=== PATIENT | female | born 1940 | race Caucasian/White ===

== ENCOUNTER 2020-02-18 20:23 | Inpatient (IN) | payer MEDICARE, BC ==
[~2020-02-18] VITALS: Ht 167.6 cm; Wt 117.9 kg
[~2020-02-18 20:23] MED LIST: ASPI81CH PO; Aspir 8181 MG PO; FURO20 PO; HYDRA25 PO; LOSA50 PO; METO50 PO; PRAV20 PO; PRAZ1 PO
[2020-02-18] MEDS ORDERED: HYDRA25 PO (20:33)
[2020-02-18] MEDS ORDERED: LOSA50 PO (20:34)
[2020-02-18] MEDS ORDERED: XARELTO20 M1 PO (20:35)
[2020-02-18] MEDS ORDERED: METOPROLOL TART75 MG PO (20:36)
[2020-02-18] MEDS ORDERED: LOVASTATIN40 MG PO (20:37)
[2020-02-18] MEDS ORDERED: Cymbalta20 MG PO (20:38)
[2020-02-18] MEDS ORDERED: TRESIBA FL100 UNIT/2 SC (20:38)
[2020-02-18] MEDS ORDERED: FEBUXOSTAT40 MG PO (20:39)
[2020-02-18 22:02] LABS: BASOPHILS ABSOLUTE AUTO 0.04 K/mm3 (0.00-0.23); BASOPHILS PERCENT AUTO 0 % (0-2); EOSINOPHILS ABSOLUTE AUTO 0.03 K/mm3 (0.00-0.68); EOSINOPHILS PERCENT AUTO 0 % (0-6); IMMATURE GRAN ABSOLUTE AUTO 0.04 K/mm3 (0.00-0.10); IMMATURE GRAN PERCENT AUTO 0 % (0-1); LYMPHOCYTES PERCENT AUTO 14 % (21-46); MONOCYTES ABSOLUTE AUTO 0.67 K/mm3 (0.16-1.47); MONOCYTES PERCENT AUTO 5 % (4-13); Mean Corpuscular HGB 28.8 pg (26.0-34.0); Mean Corpuscular HGB Conc 32.5 g/dL (31.5-36.5); Mean Corpuscular Volume 89 fL (80-100); Mean Platelet Volume 9.2 fL (9.1-12.4); NEUTROPHILS ABSOLUTE AUTO 10.51 K/mm3 (1.96-9.15); NEUTROPHILS PERCENT AUTO 80 % (41-73); Platelet Count 207 K/mm3 (150-400); RDW Standard Deviation 42.5 fL (35.1-46.3); Red Blood Cell Count 4.51 M/mm3 (3.80-5.20); White Blood Cell Count 13.19 K/mm3 (4.00-11.30)
[2020-02-18 22:18] LABS: Albumin, Blood 3.2 g/dL (3.4-5.0); Albumin/Globulin Ratio 1.1 (0.8-1.8); Bilirubin, Total 0.4 mg/dL (0.1-1.0); Bun/Creatinine Ratio 22.4 (12.0-20.0); Calcium, Blood 9.8 mg/dL (8.5-10.1); Creatinine, Blood 1.07 mg/dL (0.40-1.00); Globulin, Blood 2.9 g/dL (2.2-4.0); International Normalized Ratio 1.47; Potassium, Blood 4.4 mmol/L (3.5-5.5); Prothrombin Time Results 15.4 Sec (9.7-11.5); Total Protein, Blood 6.1 g/dL (6.4-8.2)
[2020-02-19 01:13] LABS: Hematocrit 37.1 % (33.0-51.0); Hemoglobin 12.1 g/dL (11.5-16.0)
--- NOTE | 2020-02-19 04:54 | NUR ---
PATIENT ARRIVED AT 0155, PATIENT ABLE TO STAND AND PIVOT TO THE BSC TO VOID. 8/10 PAIN IN HER RIGHT KNEE. PATIENT ASSISTED BACK TO BED. ORIENTED TO HER ROOM AND CALL LIGHT. RT KNEE WITH SEVERAL LARGE WATER BLISTERS OVER THE BRUISED, SWOLLEN MEDIAL KNEE. PERIPHERAL PULSES ARE PRESENT, RT FOOT WITH <3 SECOND CAP REFILL. CONTINUOUS BIOX AND CPAP SET UP BY RESP CARE.
--- NOTE | 2020-02-19 05:13 | NUR ---
PATIENT STATED THAT HER PAIN IS NOT ABATING WITH THE FENTANYL. PAIN IS 10/10. DR RANKIN NOTIFIED AND WILL CHANGE TO KATIE.
[2020-02-19 07:24] LABS: BASOPHILS ABSOLUTE AUTO 0.03 K/mm3 (0.00-0.23); BASOPHILS PERCENT AUTO 0 % (0-2); EOSINOPHILS PERCENT AUTO 0 % (0-6); Hematocrit 34.9 % (33.0-51.0); Hemoglobin 11.5 g/dL (11.5-16.0); IMMATURE GRAN ABSOLUTE AUTO 0.04 K/mm3 (0.00-0.10); IMMATURE GRAN PERCENT AUTO 0 % (0-1); LYMPHOCYTES PERCENT AUTO 22 % (21-46); MONOCYTES ABSOLUTE AUTO 0.57 K/mm3 (0.16-1.47); MONOCYTES PERCENT AUTO 4 % (4-13); Mean Corpuscular HGB 29.5 pg (26.0-34.0); Mean Corpuscular Volume 90 fL (80-100); Mean Platelet Volume 9.5 fL (9.1-12.4); NEUTROPHILS ABSOLUTE AUTO 9.79 K/mm3 (1.96-9.15); NEUTROPHILS PERCENT AUTO 73 % (41-73); Platelet Count 217 K/mm3 (150-400); RDW Coefficient Variation 13.2 % (11.7-14.2); RDW Standard Deviation 43.4 fL (35.1-46.3); White Blood Cell Count 13.43 K/mm3 (4.00-11.30)
[2020-02-19 07:42] LABS: Albumin, Blood 2.9 g/dL (3.4-5.0); Bilirubin, Total 0.3 mg/dL (0.1-1.0); Bun/Creatinine Ratio 25.4 (12.0-20.0); Calcium, Blood 9.4 mg/dL (8.5-10.1); Creatinine, Blood 0.99 mg/dL (0.40-1.00); Globulin, Blood 2.9 g/dL (2.2-4.0); Potassium, Blood 4.7 mmol/L (3.5-5.5); Total Protein, Blood 5.8 g/dL (6.4-8.2)
[2020-02-19 13:24] LABS: Hemoglobin 11.7 g/dL (11.5-16.0)
--- NOTE | 2020-02-19 15:30 | NUR ---
PT VASOVAGAL RESPONSE WHILE ON BSC, BECAME DIAPHORETIC AND BEGAN TO CLOSE EYES PT WOULD OPEN EYES AT REQUEST AND ANSWER ORIENTATION QUESTIONS APPROPRIATELY. VSS W/ BP 102/71, PULSE 76, OXYGEN 93, NARCAN 0.2 MG GIVEN, EKG AFIB, CBG 335. BIOX ON. HOSPITALIST AWARE.
--- NOTE | 2020-02-19 17:02 | NUR ---
SHIFT SUMMARY PT A&OX4, VSS, RA, BIOX ON. ORTHO CONSULT; WBAT, RLE BLISTERS ARE DRESSED IN GAUZE/RON WRAP, ELEVATED ON PILLOW. AGUSTIN PO, ADA DIET. DENIES N&V. CBGS AC/HS REQUIRES COVERAGE. PT DID HAVE A VASOVAGAL EPISODE ON BSC AT 1530 (SEE NOTE). WILL REPORT TO ONCYAMILE TRONCOSO RN.
[2020-02-19 19:50] LABS: Hematocrit 33.7 % (33.0-51.0); Hemoglobin 10.8 g/dL (11.5-16.0)
[2020-02-20 01:08] LABS: Hematocrit 32.2 % (33.0-51.0); Hemoglobin 10.2 g/dL (11.5-16.0)
--- NOTE | 2020-02-20 05:54 | NUR ---
SHIFT SUMMARY: RALPH IS A&OX4. VSS, NO ACUTE EVENTS OVERNIGHT, CONTINUOUS PULSE OX IN PLACE. TOLERATING PO INTAKE WELL. SHE USED HER CPAP FOR THE MAJORITY OF THE SHIFT. SHE WAS FOUND TO HAVE A REDDENED AREA IN HER LEFT GROIN FOR WHICH SHE STATED SHE USES NEOSPORIN AT HOME WITH GOOD RESULTS. TRIPLE ANTIBIOTIC OINTMENT APPLIED TO AREA. RLE WITH DRESSING AND RON WRAP C/D&I. SHE IS ABLE TO MAKE HER NEEDS KNOWN. SHE IS LYING IN BED WITH HER CALL LIGHT IN REACH. WILL REPORT TO DAY SHIFT RN.
--- NOTE | 2020-02-20 17:03 | NUR ---
SHIFT SUMMARY PT A&OX4, VSS, RA, CBGS REQ COV, BIOX ON, TCDB EDU & ENC, PHYSICAL THERAPY EXERCISES EDU & ENC ALONG WITH HAVING PT STANDING IN FRONT OF CHAIR TO STRETCH AND PRACTICE SAFE REVIEW OF STANDING UP AND SITTING DOWN IN A CHAIR; STAND PIVOT W/FWW & GB TO CHAIR/BSC/BED. RLE BLISTERS RUPTURED, NEW DRESSING W/XEROFORM/GAUZE/ABD/RON WRAP APPLIED. DENIES PAIN - NO NARCS GIVEN THIS SHIFT. DENIES N&V, AGUSTIN PO ADA DIET. WILL REPORT TO ONCOMING NOC RN.
[2020-02-20] MEDS ORDERED: Lopressor 50 mg50 MG PO (18:19)
--- NOTE | 2020-02-20 20:36 | NUR ---
Patient up in chair, gait belt on and ready to return to the bed. used one person assist and a FWW. Patient attempted to get out of chair twice, and on the third try was standing weakly. After patient got the the bed she asked for the BSC and she made the few steps without significant weakness. Voided and had a soft stool. 2 staff members helped to clean and stabilize patient after using the bsc. The patient began to lean to the right side, max RN asked the patient what was happening and she said that she was tired. i tried to get the patient to take steps to position herself to sit on the side of the bed. patient was unable to do so and due to her trying to sit without any thing under her the patient was helped to the bed on her side. She was awake the entire time and stated that she was just so tired. patient repositioned in bed and fully cleaned, noted that patient has beefy red panus and groin. Dr Sigala notified and nystatin powder will be started tonight. call light in reach.
--- NOTE | 2020-02-21 05:35 | NUR ---
PATIENT WOKE THIS MORNING AND FOUND THAT SHE HAD BEEN INCONTINENT OF URINE AND STOOL. PATIENT STATED THAT SHE DID NOT CALL US BECAUSE SHE DID NOT WANT TO WAKE US, i ASSURED HER THAT WE DO NOT SLEEP, BUT ARE AWAKE ALL NIGHT. RIGHT LEG DRESSING REMOVED. LEG CLEANED WITH WARM WATER AND SOAP SOAKED CLOTHS. XEROFORM DRESSING OVER THE RUPTURED BLISTERS, 4x4'S AND RON WRAP. PATIENT TOLERATED DRESSING CHANGE WELL. REPOSITIONED IN BED, CALL LIGHT IN REACH.
--- NOTE | 2020-02-21 09:59 | NUR ---
LOW BP AT 0857 PT EXPERIENCED LOW BLOOD PRESSURE AFTER HER PHYSICAL THERAPY SESSION. PT DENIES CHEST PAIN/ PRESSURE, DIZZINESS, NAUSEA AND VOMITING. PT REPORTS SOB.
[2020-02-21 10:17] LABS: Hematocrit 30.2 % (33.0-51.0)
--- NOTE | 2020-02-21 18:06 | NUR ---
SHIFT SUMMARY PT A0X4. SHE MET PHYSICAL THERAPY TODAY BUT HAS NOT BEEN CLEARED DUE TO ORTHOSTATIC HYPOTENSIVE AND NEAR SYNCOPAL EPISODE IN THE LAST 2 DAYS. PT TOLERATING MEALS WELL WITH NO NAUSEA AND NO VOMITING. CGB OF 210, 274, AND 194. SHE REPORTS MINIMAL PAIN /. SHE ONLY HAD 1 ELIE THIS MORNING AFTER PHYS THERAPY SESSION. PT ALSO DENIES CHEST PAIN/PRESSURE, SOB, NUMBNESS, TINGLING SENSATION AND DIZZINESS. PLAN TO DC TOMORROW IF CLEARED BY PT. PT JADIEL NOTED LACK OF CAREGIVER UNTIL 02/21 VS ADVISING SNF STAY, OR HOME HEALTH PER CARE MANAGEMENT. HOME MEDS ARE RECONCILED BY JOHANN MCPHERSON.
[2020-02-22 04:50] LABS: Hematocrit 29.3 % (33.0-51.0); Hemoglobin 9.7 g/dL (11.5-16.0); Mean Corpuscular HGB 29.6 pg (26.0-34.0); Mean Corpuscular HGB Conc 33.1 g/dL (31.5-36.5); Mean Corpuscular Volume 89 fL (80-100); RDW Coefficient Variation 13.4 % (11.7-14.2); RDW Standard Deviation 43.8 fL (35.1-46.3); Red Blood Cell Count 3.28 M/mm3 (3.80-5.20); White Blood Cell Count 12.53 K/mm3 (4.00-11.30)
[2020-02-22 04:52] LABS: Platelet Count 183 K/mm3 (150-400)
[2020-02-22 05:05] LABS: Bun/Creatinine Ratio 29.8 (12.0-20.0); Calcium, Blood 9.2 mg/dL (8.5-10.1); Creatinine, Blood 1.51 mg/dL (0.40-1.00); Potassium, Blood 4.1 mmol/L (3.5-5.5)
--- NOTE | 2020-02-22 05:37 | NUR ---
SHIFT SUMMARY LYING IN SEMI FOWLERS WITH EYES OPEN WHILE WATCHING TV. HAS DENIED PAIN EXCEPT WITH MOVEMENT OF RIGHT KNEE. RLE WITH LARGE CONTUSION ORIGINATING FROM THE KNEE, AND SPREADING IN BOTH DIRECTIONS. DENIES N/T TO BLE. IMPROVEMENT OF CIRCULATION NOTED TO FINGERS AND TOES, INCREASED WARMTH TO EACH. HAD 2 LARGE INCONTINENT URINATIONS. LINENS AND PARTIAL BATH COMPLETED, TOLERATED WELL. DENIES PAIN, DISCOMFORT, OR FURTHER NEEDS. SAFETY MEASURES IN PLACE. WILL CONTINUE TO MONITOR AND GIVE HAND OFF TO ONCOMING SHIFT USING SBAR.
[2020-02-22] MEDS ORDERED: OXYC5 PO (16:31)
[2020-02-22] MEDS ORDERED: PRAZ1 PO (16:31)
[2020-02-22] MEDS ORDERED: METO25 PO (16:59)
--- NOTE | 2020-02-22 18:09 | NUR ---
SHIFT SUMMARY PT DISCHARGED AT 1730 VIA W/C WITH AVINASH DAMIAN. PT ALERT AND ORIENTED X 4. PT PAIN ON RIGHT KNEE IS WELL TOLERATED WITHOUT PAIN MEDICATION. 3/10 PAIN LEVEL. PT DENIES NUMBNESS, DENIES TINGLING SENSATION, AND NO DIZZINESS. SHE ALSO DENIES CHEST PAIN/PRESSURE AND SOB. 2 BLISTER PRESENT ON RIGHT KNEE WITH BRUISING ABOVE KNEE AND DOWN TO R CALF. DRESSING CHANGED WITH ABD PAD AND NEW RON WRAPPED. EXTRA DRESSING WAS SENT HOME FOR PT TO USE. PT HAS BEEN PASSING FLATUS. SHE HAD A SMALL BOWEL MOVEMENT BEFORE DISCHARGE AND URINE OUTPUT IS ADEQUATE. PT TOLERATE PO INTAKE WELL DENIES NAUSEA AND NO VOMITING. VSS. NO SYNCOPAL EPISODES REPORTED TODAY. DISCHARGE INSTRUCTIONS WERE ADDRESSED WITH HER UPDATED MEDICATION LIST. ONE HAND CARRY SCRIPT FOR PAIN WAS GIVEN TO PT UPON DISCHARGED.
== END 2020-02-22 17:43 | disposition home or self-care (01) | DRG 605 ==
LOC: ER 20:23 → SURS 02-19 01:25
PROVIDERS: Emergency Medicine; Internal Medicine; ADMIT Internal Medicine
DX: S80.01XA Contusion of right knee, initial encounter (principal); Z68.41 Body mass index [BMI] 40.0-44.9, adult; E11.65 Type 2 diabetes mellitus with hyperglycemia; I10 Essential (primary) hypertension; I48.91 Unspecified atrial fibrillation; E66.01 Morbid (severe) obesity due to excess calories; Z79.82 Long term (current) use of aspirin; W01.10XA Fall on same level from slipping, tripping and stumbling with subsequent striking against unspecified object, initial encounter; Y92.000 Kitchen of unspecified non-institutional (private) residence as the place of occurrence of the external cause; M17.11 Unilateral primary osteoarthritis, right knee; R42 Dizziness and giddiness; R55 Syncope and collapse; Z79.4 Long term (current) use of insulin
CPT/HCPCS: 36415; 73701; 80048; 80053; 82947; 85014; 85018; 85025; 85027; 85610; 85730; 93005; 93010; 94660; 94762; 96361; 96374-59; 96375; 96376; 97110; 97116; 97162; 99285-25; A9270-GY; G0008; G0378; J1170; J2310; J3010; J7030; Q2038; Q9967

== ENCOUNTER → 2020-03-01 | Outpatient (CLI) | payer MEDICARE, BC ==
[~2020-03-01] MED LIST changes: +BYDUREON B2 MG/0.81 SC; +CALCIUM 600 +1 EA11 PO; +Cymbalta20 MG PO; +FEBUXOSTAT40 MG PO; +IBUP400 PO; +LOVASTATIN40 MG PO; +Lopressor 50 mg50 MG PO; +METO25 PO; +METO25ER PO; +METOPROLOL TART75 MG PO; +OXYC5 PO; +TRESIBA FL100 UNIT/2 SC; +VITAMIN D325 MC3 PO; +XARELTO20 M1 PO
== END | disposition home or self-care (01) ==
LOC: LAB SHORT 15:21 → LAB 15:21
DX: S81.801D Unspecified open wound, right lower leg, subsequent encounter (principal)
CPT/HCPCS: 87070; 87075; 87077; 87147; 87186; 87205

== ENCOUNTER 2020-03-10 10:19 | Emergency (ER) | payer MEDICARE, BC ==
[~2020-03-10] VITALS: Ht 167.6 cm; Wt 117.9 kg
[~2020-03-10 10:19] MED LIST changes: -BYDUREON B2 MG/0.81 SC; -CALCIUM 600 +1 EA11 PO; -IBUP400 PO; -METO25ER PO; -VITAMIN D325 MC3 PO
[2020-03-10 11:28] LABS: BASOPHILS ABSOLUTE AUTO 0.04 K/mm3 (0.00-0.23); BASOPHILS PERCENT AUTO 0 % (0-2); EOSINOPHILS ABSOLUTE AUTO 0.09 K/mm3 (0.00-0.68); EOSINOPHILS PERCENT AUTO 1 % (0-6); Hematocrit 36.3 % (33.0-51.0); IMMATURE GRAN ABSOLUTE AUTO 0.03 K/mm3 (0.00-0.10); IMMATURE GRAN PERCENT AUTO 0 % (0-1); LYMPHOCYTES PERCENT AUTO 21 % (21-46); MONOCYTES ABSOLUTE AUTO 0.45 K/mm3 (0.16-1.47); MONOCYTES PERCENT AUTO 5 % (4-13); Mean Corpuscular HGB 27.9 pg (26.0-34.0); Mean Corpuscular HGB Conc 30.3 g/dL (31.5-36.5); Mean Corpuscular Volume 92 fL (80-100); Mean Platelet Volume 8.9 fL (9.1-12.4); NEUTROPHILS ABSOLUTE AUTO 6.52 K/mm3 (1.96-9.15); NEUTROPHILS PERCENT AUTO 72 % (41-73); Platelet Count 302 K/mm3 (150-400); RDW Coefficient Variation 14.4 % (11.7-14.2); RDW Standard Deviation 48.1 fL (35.1-46.3); Red Blood Cell Count 3.94 M/mm3 (3.80-5.20); White Blood Cell Count 9.03 K/mm3 (4.00-11.30)
[2020-03-10 11:45] LABS: Albumin, Blood 3.1 g/dL (3.4-5.0); Albumin/Globulin Ratio 0.9 (0.8-1.8); Bilirubin, Total 0.6 mg/dL (0.1-1.0); C-REACTIVE PROTEIN, EXT RANGE 2.88 mg/dL (0.000-0.300); Calcium, Blood 9.5 mg/dL (8.5-10.1); Globulin, Blood 3.6 g/dL (2.2-4.0); Potassium, Blood 4.4 mmol/L (3.5-5.5); Total Protein, Blood 6.7 g/dL (6.4-8.2)
[2020-03-10] MEDS ORDERED: METO25ER PO (12:04)
[2020-03-10] MEDS ORDERED: BYDUREON B2 MG/0.81 SC (12:06)
[2020-03-10] MEDS ORDERED: VITAMIN D325 MC3 PO (12:11)
[2020-03-10] MEDS ORDERED: CALCIUM 600 +1 EA11 PO (12:12)
[2020-03-10] MEDS ORDERED: IBUP400 PO (12:13)
== END 2020-03-10 14:07 | disposition home or self-care (01) ==
LOC: ER 10:19
PROVIDERS: Emergency Medicine
DX: S81.802A Unspecified open wound, left lower leg, initial encounter (principal); E11.9 Type 2 diabetes mellitus without complications; I10 Essential (primary) hypertension; I48.91 Unspecified atrial fibrillation; Z88.2 Allergy status to sulfonamides; Z88.8 Allergy status to other drugs, medicaments and biological substances; Z79.82 Long term (current) use of aspirin; Z79.4 Long term (current) use of insulin; Z79.899 Other long term (current) drug therapy; W19.XXXA Unspecified fall, initial encounter
CPT/HCPCS: 36415; 73590; 80053; 85025; 85651; 86140; 99284-25

== ENCOUNTER 2020-03-13 10:52 | Day surgery (SDC) | payer MEDICARE, BC ==
[~2020-03-13 10:52] MED LIST changes: +BYDUREON B2 MG/0.81 SC; +CALCIUM 600 +1 EA11 PO; +IBUP400 PO; +METO25ER PO; +VITAMIN D325 MC3 PO
== END 2020-03-13 23:45 | disposition home or self-care (01) ==
LOC: WOUND 10:52
DX: E11.622 Type 2 diabetes mellitus with other skin ulcer (principal); L97.812 Non-pressure chronic ulcer of other part of right lower leg with fat layer exposed; E11.52 Type 2 diabetes mellitus with diabetic peripheral angiopathy with gangrene; I96 Gangrene, not elsewhere classified; I48.91 Unspecified atrial fibrillation; I10 Essential (primary) hypertension; E11.40 Type 2 diabetes mellitus with diabetic neuropathy, unspecified; E78.00 Pure hypercholesterolemia, unspecified; M10.9 Gout, unspecified; E07.9 Disorder of thyroid, unspecified; E11.36 Type 2 diabetes mellitus with diabetic cataract; H26.9 Unspecified cataract; G47.30 Sleep apnea, unspecified; I49.9 Cardiac arrhythmia, unspecified; Z88.2 Allergy status to sulfonamides; Z88.8 Allergy status to other drugs, medicaments and biological substances; Z79.4 Long term (current) use of insulin; Z79.82 Long term (current) use of aspirin; Z79.899 Other long term (current) drug therapy
CPT/HCPCS: G0463

== ENCOUNTER 2020-03-20 00:34 | Day surgery (SDC) | payer MEDICARE, BC | END 2020-03-20 23:15 | disposition home or self-care (01) | LOC: WOUND 00:34 | DX: E11.622 Type 2 diabetes mellitus with other skin ulcer (principal); L97.812 Non-pressure chronic ulcer of other part of right lower leg with fat layer exposed; E11.52 Type 2 diabetes mellitus with diabetic peripheral angiopathy with gangrene; I96 Gangrene, not elsewhere classified; S80.11XS Contusion of right lower leg, sequela; I48.91 Unspecified atrial fibrillation; E11.40 Type 2 diabetes mellitus with diabetic neuropathy, unspecified; I10 Essential (primary) hypertension; M10.9 Gout, unspecified; E78.00 Pure hypercholesterolemia, unspecified; E11.36 Type 2 diabetes mellitus with diabetic cataract; H26.9 Unspecified cataract; G47.30 Sleep apnea, unspecified; I49.9 Cardiac arrhythmia, unspecified; Z79.01 Long term (current) use of anticoagulants; Z79.82 Long term (current) use of aspirin; Z79.4 Long term (current) use of insulin; Z79.899 Other long term (current) drug therapy; Z88.2 Allergy status to sulfonamides; Z88.8 Allergy status to other drugs, medicaments and biological substances; W01.0XXS Fall on same level from slipping, tripping and stumbling without subsequent striking against object, sequela ==

== ENCOUNTER 2020-03-27 01:10 | Day surgery (SDC) | payer MEDICARE, BC | END 2020-03-27 23:07 | disposition home or self-care (01) | LOC: WOUND 01:10 | DX: E11.622 Type 2 diabetes mellitus with other skin ulcer (principal); S80.11XS Contusion of right lower leg, sequela; E11.40 Type 2 diabetes mellitus with diabetic neuropathy, unspecified; I10 Essential (primary) hypertension; E78.00 Pure hypercholesterolemia, unspecified; L97.815 Non-pressure chronic ulcer of other part of right lower leg with muscle involvement without evidence of necrosis; Z79.899 Other long term (current) drug therapy; Z79.82 Long term (current) use of aspirin; Z79.4 Long term (current) use of insulin ==

== ENCOUNTER 2020-04-05 02:58 | Day surgery (SDC) | payer MEDICARE, BC | END 2020-04-05 23:30 | disposition home or self-care (01) | LOC: WOUND 02:58 | DX: E11.622 Type 2 diabetes mellitus with other skin ulcer (principal); L97.811 Non-pressure chronic ulcer of other part of right lower leg limited to breakdown of skin; S80.11XS Contusion of right lower leg, sequela; E11.36 Type 2 diabetes mellitus with diabetic cataract; H26.9 Unspecified cataract; G47.30 Sleep apnea, unspecified; I49.9 Cardiac arrhythmia, unspecified; I10 Essential (primary) hypertension; M10.9 Gout, unspecified; E11.40 Type 2 diabetes mellitus with diabetic neuropathy, unspecified; Z88.2 Allergy status to sulfonamides; Z88.8 Allergy status to other drugs, medicaments and biological substances; Z79.4 Long term (current) use of insulin; Z79.82 Long term (current) use of aspirin; Z79.899 Other long term (current) drug therapy; X58.XXXS Exposure to other specified factors, sequela ==

== ENCOUNTER 2020-04-15 09:34 | Inpatient (IN) | payer MEDICARE, BC ==
[~2020-04-15] VITALS: Ht 167.6 cm; Wt 117.9 kg
[~2020-04-15 09:34] MED LIST changes: -Cymbalta20 MG PO; -FEBUXOSTAT40 MG PO; -METO25 PO; -TRESIBA FL100 UNIT/2 SC; -VITAMIN D325 MC3 PO
[2020-04-15 10:27] LABS: BASOPHILS ABSOLUTE AUTO 0.03 K/mm3 (0.00-0.23); BASOPHILS PERCENT AUTO 0 % (0-2); EOSINOPHILS PERCENT AUTO 0 % (0-6); Hematocrit 42.3 % (33.0-51.0); Hemoglobin 13.2 g/dL (11.5-16.0); IMMATURE GRAN PERCENT AUTO 1 % (0-1); LYMPHOCYTES ABSOLUTE AUTO 1.26 K/mm3 (0.84-5.20); LYMPHOCYTES PERCENT AUTO 8 % (21-46); MONOCYTES ABSOLUTE AUTO 0.89 K/mm3 (0.16-1.47); MONOCYTES PERCENT AUTO 5 % (4-13); Mean Corpuscular HGB Conc 31.2 g/dL (31.5-36.5); Mean Corpuscular Volume 87 fL (80-100); Mean Platelet Volume 9.3 fL (9.1-12.4); NEUTROPHILS ABSOLUTE AUTO 14.54 K/mm3 (1.96-9.15); NEUTROPHILS PERCENT AUTO 86 % (41-73); Platelet Count 217 K/mm3 (150-400); RDW Coefficient Variation 14.7 % (11.7-14.2); RDW Standard Deviation 47.4 fL (35.1-46.3); Red Blood Cell Count 4.88 M/mm3 (3.80-5.20); White Blood Cell Count 16.82 K/mm3 (4.00-11.30)
[2020-04-15 10:41] LABS: Alanine Aminotransfer (ALT/SGP 17 U/L (12-78); Albumin, Blood 2.9 g/dL (3.4-5.0); Albumin/Globulin Ratio 0.7 (0.8-1.8); Alk Phos 127 U/L (50-136); Anion Gap 9 mmol/L (6-16); Aspartate Aminotrans (AST/SGOT 19 U/L (12-37); Bilirubin, Total 0.8 mg/dL (0.1-1.0); Blood Urea Nitrogen 18 mg/dL (8-24); CO2, Blood 26 mmol/L (21-32); Calcium, Blood 10.5 mg/dL (8.5-10.1); Chloride, Blood 97 mmol/L (98-108); Creatinine, Blood 0.95 mg/dL (0.40-1.00); Globulin, Blood 4.3 g/dL (2.2-4.0); Glomerular Filtration Rate >60 (60-); Glucose, Blood 291 mg/dL (70-99); Potassium, Blood 3.7 mmol/L (3.5-5.5); Sodium, Blood 132 mmol/L (136-145); Total Protein, Blood 7.2 g/dL (6.4-8.2)
[2020-04-15 10:45] LABS: Magnesium, Blood 1.9 mg/dL (1.6-2.4)
[2020-04-15 11:04] LABS: Creatine Kinase MB 2.8 ng/mL (0.0-3.6); Creatine Kinase MB Index 1.3 (0.0-4.0)
[2020-04-15] MEDS ORDERED: Cymbalta20 MG PO ×2 (11:04→14:37)
[2020-04-15] MEDS ORDERED: FEBU40TA PO (11:04)
[2020-04-15] MEDS ORDERED: IBU800 M1 PO (11:05)
[2020-04-15] MEDS ORDERED: VITAMIN D325 MC3 PO ×2 (11:08→15:06)
[2020-04-15 11:58] LABS: Influenza A, PCR Negative (NEGATIVE); Influenza B, PCR Negative (NEGATIVE); Resp Syncytial Virus, PCR Negative (NEGATIVE); SARS-Cov-2 (COVID-19) PCR, MMC Negative (NEGATIVE)
[2020-04-15 12:46] LABS: Source, Urine Clean Catch
[2020-04-15 12:49] LABS: Appearance, Urine Hazy (Clear); Bilirubin, Urine Neg (Neg); Blood, Urine 4+ (Neg); Color, Urine Yellow (P-Yellow); Glucose Qualitative, Urine 3+ (Neg); Ketones, Urine 2+ (Neg); Leukocyte Esterase, Urine 3+ (Neg); Nitrite, Urine Pos (Neg); Protein, Urine 3+ (Neg); Urobilinogen, Urine NORM (Normal)
[2020-04-15 13:25] LABS: White Blood Cells, Urine 50-100 /hpf (0-5)
[2020-04-15 13:26] LABS: Bacteria Many /hpf; Squamous Epithelial Cells Few /hpf (Few); WBC Cast 0-2 /lpf (0)
[2020-04-15] MEDS ORDERED: BYDUREON P2 MG/0.61 SC (14:36)
[2020-04-15] MEDS ORDERED: METOPROLOL TART50 MG PO (14:40)
[2020-04-15] MEDS ORDERED: METO25 PO (14:41)
[2020-04-15] MEDS ORDERED: FURO20 PO (14:41)
[2020-04-15] MEDS ORDERED: LOVA40 PO (14:42)
[2020-04-15] MEDS ORDERED: FEBUXOSTAT40 MG PO (14:43)
[2020-04-15] MEDS ORDERED: LOSA50 PO (14:43)
[2020-04-15] MEDS ORDERED: TRESIBA FL100 UNIT/2 SC (14:44)
[2020-04-15] MEDS ORDERED: XARELTO20 MG PO (14:45)
[2020-04-15] MEDS ORDERED: Aspir 8181 MG PO (15:06)
[2020-04-15] MEDS ORDERED: Calcium + Vita1 EACH PO (15:07)
[2020-04-15] MEDS ORDERED: IBUP400 PO (17:52)
--- NOTE | 2020-04-15 19:07 | NUR ---
ARTHUR OWUSU AND WOUND VAC: PATIENT REPORTS THAT SHE NO LONGER TAKES XARELTO. DISCUSSED THIS WITH DR. STEVENSON IN ADDITION TO ARTHUR BEING PRESENT WITHOUT ORDER AND THE NEED FOR A WOUND VAC ORDER FOR THE PATIENT'S WOUND VAC THAT WAS PRESENT ON ADMISSION. NEW ORDERS RECEIVED AND ENTERED.
--- NOTE | 2020-04-15 19:22 | NUR ---
END OF SHIFT SUMMARY: PATIENT ARRIVED TO THE UNIT VIA A WHEELCHAIR. PATIENT WAS EXTREMELY WEAK AND REQUIRED 4 STAFF MEMBERS TO ASSIST WITH A TRANSFER FROM THE WHEELCHAIR TO THE BED. REQUESTED THAT THE PATIENT UTILIZE HER CALL LIGHT FOR ACTIVITY. PATIENT REPORTS THAT SHE NEEDS HELP WITH REPOSITIONING. PATIENT DENIES NAUSEA/VOMITING. PATIENT DENIES PAIN. DAUGHTER WAS AT THE BEDSIDE FOR MOST OF ADMISSION. PATIENT REPORTS THAT HER CAREGIVER RECENTLY AND THAT SHE HAS BEEN RELYING ON HER DAUGHTER TO PROVIDE CARE. SHE REPORTS THAT HER CARE NEEDS HAVE INCREASED RECENTLY. DISCUSSED WITH DR. STEVENSON THE GIBSON CATHER PRESENT ON ADMIT TO THE FLOOR, THE WOUND VAC PRESENT ON ADMIT TO THE ED, AND THE PATIENT'S REPORT OF NO LONGER TAKING XARELTO (SEE NOTE).
--- NOTE | 2020-04-16 04:34 | NUR ---
NO ACUTE CHANGES THIS SHIFT. WOUND CARE AND DRESSING CHANGES TO PT'S RLE. HOME WOUND VAC CHANGED TO HOSPITAL WOUND VAC. SEE PICTURES IN CHART. PT HAS BEEN A&O X4 BUT FORGETFUL AT TIMES. DURING HOURLY ROUNDING PT WAS FOUND TO HAVE GOWN AND LINENS ON FLOOR, PT STATED "I'M ROASTING", TEMP 99.1, NEW GOWN AND LINENS OBTAINED, FAN GIVEN TO PT. NO OTHER COMPLAINTS THIS SHIFT. PT HAS SLEPT WELL. PT IS LAYING IN BED WITH EYES CLOSED, EVEN AND UNLABORED RESPIRATIONS. BED IN LOWERED POSITION WITH ALARM IN PLACE. CALL LIGHT AND PERSONAL ITEMS WITH IN REACH. NO APPARENT NEEDS OR DISTRESS AT THIS TIME, WILL CONTINUE TO MONITOR UNTIL REPORT GIVEN TO DAY RN.
[2020-04-16 04:45] LABS: BASOPHILS ABSOLUTE AUTO 0.03 K/mm3 (0.00-0.23); BASOPHILS PERCENT AUTO 0 % (0-2); EOSINOPHILS ABSOLUTE AUTO 0.01 K/mm3 (0.00-0.68); EOSINOPHILS PERCENT AUTO 0 % (0-6); Hematocrit 34.1 % (33.0-51.0); Hemoglobin 10.4 g/dL (11.5-16.0); IMMATURE GRAN ABSOLUTE AUTO 0.07 K/mm3 (0.00-0.10); IMMATURE GRAN PERCENT AUTO 1 % (0-1); LYMPHOCYTES ABSOLUTE AUTO 1.19 K/mm3 (0.84-5.20); LYMPHOCYTES PERCENT AUTO 10 % (21-46); MONOCYTES ABSOLUTE AUTO 1.05 K/mm3 (0.16-1.47); MONOCYTES PERCENT AUTO 8 % (4-13); Mean Corpuscular HGB 26.4 pg (26.0-34.0); Mean Corpuscular HGB Conc 30.5 g/dL (31.5-36.5); Mean Corpuscular Volume 87 fL (80-100); Mean Platelet Volume 9.5 fL (9.1-12.4); NEUTROPHILS ABSOLUTE AUTO 10.11 K/mm3 (1.96-9.15); NEUTROPHILS PERCENT AUTO 81 % (41-73); Platelet Count 190 K/mm3 (150-400); RDW Coefficient Variation 14.7 % (11.7-14.2); RDW Standard Deviation 46.7 fL (35.1-46.3); Red Blood Cell Count 3.94 M/mm3 (3.80-5.20); White Blood Cell Count 12.46 K/mm3 (4.00-11.30)
[2020-04-16 05:03] LABS: Albumin, Blood 2.2 g/dL (3.4-5.0); Albumin/Globulin Ratio 0.6 (0.8-1.8); Bilirubin, Total 0.5 mg/dL (0.1-1.0); Bun/Creatinine Ratio 17.2 (12.0-20.0); Calcium, Blood 9.2 mg/dL (8.5-10.1); Creatinine, Blood 1.16 mg/dL (0.40-1.00); Globulin, Blood 3.6 g/dL (2.2-4.0); Potassium, Blood 3.8 mmol/L (3.5-5.5); Total Protein, Blood 5.8 g/dL (6.4-8.2)
--- NOTE | 2020-04-16 17:19 | NUR ---
PATIENT HAS BEEN PLEASANT AND COOPERATIVE WITH STAFF TODAY. BP ELEVATED THIS MORNING AND EVENTUALLY CAME DOWN TO 130s SYSTOLLICALLY AFTER MEDICATIONS GIVEN PER EMAR. PATIENT HAS BEEN TIRED AND IN AND OUT OF SLEEP T/O THE DAY. SHE CONTINUES ON IV AND PO ABX WITHOUT S/SX OF ADVERSE REACTIONS NOTED OR REPORTED. SHE REMAINS PRETTY WEAK AND IS BEDBOUND AT THIS TIME. PATIENT HAS NOT COMPLAINED OF PAIN OR DISCOMFORT. WOUND VAC TO R INNER KNEE IN PLACE AND RUNNING AT 120. PATIENT CALLS APPROPRIATELY FOR STAFF ASSIST NEEDED. WILL CONTINUE TO MONITOR AND PROVIDE CARE.
--- NOTE | 2020-04-17 04:40 | NUR ---
SHIFT SUMMARY BP HIGH AT BEGINNING OF SHIFT. RECHECKED AFTER SCHEDULED LOPRESSOR, CONTINUED TO BE ELEVATED, 10 MG OF HYDRALZINE GIVEN. RECHECK 140/79. MEDICATED X1 FOR FEVER, AFTERWARDS PT HAS BEEN AFEBRILE. PT REFUSED 0200 VS, WAS ABLE TO OBTAINED VS @ 0327. OTHERWISE PT HAS BEEN SLEEPING WELL WITH NO OTHER COMPLAINTS. PT IS LAYING IN BED WITH EYES CLOSED, EVEN AND UNLABORED RESPIRATIONS. BED IN LOWERED POSITION WITH HOB ELEVATED FOR COMFORT, ALARM IN PLACE. CALL LIGHT AND PERSONAL ITEMS WITH IN REACH. NO APPARENT NEEDS OR DISTRESS AT THIS TIME, WILL CONTINUE TO MONITOR UNTIL REPORT GIVEN TO DAY RN.
[2020-04-17 05:36] LABS: BASOPHILS ABSOLUTE AUTO 0.04 K/mm3 (0.00-0.23); BASOPHILS PERCENT AUTO 0 % (0-2); EOSINOPHILS ABSOLUTE AUTO 0.14 K/mm3 (0.00-0.68); EOSINOPHILS PERCENT AUTO 1 % (0-6); Hematocrit 36.8 % (33.0-51.0); Hemoglobin 11.1 g/dL (11.5-16.0); IMMATURE GRAN ABSOLUTE AUTO 0.05 K/mm3 (0.00-0.10); IMMATURE GRAN PERCENT AUTO 1 % (0-1); LYMPHOCYTES ABSOLUTE AUTO 1.38 K/mm3 (0.84-5.20); LYMPHOCYTES PERCENT AUTO 13 % (21-46); MONOCYTES ABSOLUTE AUTO 0.98 K/mm3 (0.16-1.47); MONOCYTES PERCENT AUTO 9 % (4-13); Mean Corpuscular HGB 26.3 pg (26.0-34.0); Mean Corpuscular HGB Conc 30.2 g/dL (31.5-36.5); Mean Corpuscular Volume 87 fL (80-100); Mean Platelet Volume 9.4 fL (9.1-12.4); NEUTROPHILS ABSOLUTE AUTO 7.84 K/mm3 (1.96-9.15); NEUTROPHILS PERCENT AUTO 75 % (41-73); Platelet Count 187 K/mm3 (150-400); RDW Coefficient Variation 15.1 % (11.7-14.2); RDW Standard Deviation 48.3 fL (35.1-46.3); Red Blood Cell Count 4.22 M/mm3 (3.80-5.20); White Blood Cell Count 10.43 K/mm3 (4.00-11.30)
[2020-04-17 06:10] LABS: Albumin, Blood 2.1 g/dL (3.4-5.0); Anion Gap 10 mmol/L (6-16); Blood Urea Nitrogen 23 mg/dL (8-24); Bun/Creatinine Ratio 22.5 (12.0-20.0); CO2, Blood 22 mmol/L (21-32); Calcium, Blood 9.4 mg/dL (8.5-10.1); Chloride, Blood 104 mmol/L (98-108); Creatinine, Blood 1.02 mg/dL (0.40-1.00); Glomerular Filtration Rate 56 (60-); Glucose, Blood 161 mg/dL (70-99); Phosphorus, Blood 2.1 mg/dL (2.5-4.9); Potassium, Blood 3.6 mmol/L (3.5-5.5); Sodium, Blood 136 mmol/L (136-145)
--- NOTE | 2020-04-17 08:47 | NUR ---
PT IS NOW ON ESBL CONTACT PRECAUTION; INFORMED THE INFECTION CONTROL.
--- NOTE | 2020-04-17 15:58 | NUR ---
SHIFT SUMMARY PT AOX4; CALLS APPROPRIATELY. PT IS A 2P ASSISTS WITH FWW. PT HAS POSITIVE BLOOD CULTURE FOR ESBL THIS AM; CALLED , NO OTHER ORDERS SINCE PT IS ALREADY GETTING THE ABX COVERAGE THAT SHE NEEDS. PT HAD ELEVATED BP THIS AM; AM BP MEDS GIVEN; BP IS NOW STABLE. PT WAS ABLE TO TOLERATE SITTING IN A RECLINER FOR LUNCH. NO C/O PAIN AT THIS SHIFT. NO APPARENT DISTRESS. PHYSICAL THERAPIST RECOMMEND PT GOING TO SNF WHEN DC FOR MOBILITY TOLERANCE. BED IS IN THE LOWEST POSITION AND CALL LIGHTS WITHIN REACH.
--- NOTE | 2020-04-17 17:22 | NUR ---
Per admit trigger, I met with Genna and her dtr to offer information on ACP. Dtr was interested in completing and Advanced Directive. I provided education and offered continued support.
--- NOTE | 2020-04-17 22:54 | NUR ---
DR STEWART updated Family had brought in PT's own CPAP & order obtained. RT set up PT's own cpap.
--- NOTE | 2020-04-18 01:04 | NUR ---
80 year old female with wound vac to rt calf since FEB 2020 & current sepsis diagnosis lost IV access prior to this shift & multiple attempts by 2 RNS to restart unable to establish IV line. Requested 3rd RN attempt IV access. Betzaida RN attempting powerglide under ultrasound. PT recieving IV antibiotics to treat sepsis. In contact isolation for ESBL in urine. Incontient of bowel & bladder, declined bowel care meds. Family brought in home CPAP & RT set up , PT wearing CPAP.
[2020-04-18 09:58] LABS: BASOPHILS ABSOLUTE AUTO 0.06 K/mm3 (0.00-0.23); BASOPHILS PERCENT AUTO 1 % (0-2); EOSINOPHILS ABSOLUTE AUTO 0.09 K/mm3 (0.00-0.68); EOSINOPHILS PERCENT AUTO 1 % (0-6); Hemoglobin 11.3 g/dL (11.5-16.0); IMMATURE GRAN ABSOLUTE AUTO 0.06 K/mm3 (0.00-0.10); IMMATURE GRAN PERCENT AUTO 1 % (0-1); LYMPHOCYTES ABSOLUTE AUTO 1.62 K/mm3 (0.84-5.20); LYMPHOCYTES PERCENT AUTO 15 % (21-46); MONOCYTES ABSOLUTE AUTO 0.98 K/mm3 (0.16-1.47); MONOCYTES PERCENT AUTO 9 % (4-13); Mean Corpuscular HGB 26.8 pg (26.0-34.0); Mean Corpuscular HGB Conc 31.4 g/dL (31.5-36.5); Mean Corpuscular Volume 86 fL (80-100); Mean Platelet Volume 9.3 fL (9.1-12.4); NEUTROPHILS ABSOLUTE AUTO 7.87 K/mm3 (1.96-9.15); NEUTROPHILS PERCENT AUTO 74 % (41-73); Platelet Count 233 K/mm3 (150-400); RDW Coefficient Variation 15.1 % (11.7-14.2); RDW Standard Deviation 47.1 fL (35.1-46.3); Red Blood Cell Count 4.21 M/mm3 (3.80-5.20); White Blood Cell Count 10.68 K/mm3 (4.00-11.30)
[2020-04-18 10:06] LABS: Bun/Creatinine Ratio 24.9 (12.0-20.0); Calcium, Blood 9.8 mg/dL (8.5-10.1); Creatinine, Blood 0.97 mg/dL (0.40-1.00); Potassium, Blood 3.7 mmol/L (3.5-5.5)
--- NOTE | 2020-04-18 18:23 | NUR ---
SHIFT SUMMARY: NO ACUTE EVENTS THIS SHIFT. A&O X 2-3, A LITTLE FORGETFUL. DAUGHTER IS CONCERNED ABOUT POSSIBLE D/C TO SNF TOMORROW, STATED SHE DOES NOT THINK HER MOTHER'S MENTATION IS BACK TO HER BASELINE AND SHE WILL NOT BE ABLE TO VISIT HER WHILE SHE'S IN SNF. DID NOT REQUEST PAIN MEDICATION. INCONT OF B&B, WEARING ATTENDS. POWERGLIDE IV NOT PATENT, TOOK SOME TIME TO GET NEW IV ACCESS. SHE WORKED WITH PT AND OT TODAY.
[2020-04-19 13:06] LABS: Influenza A, PCR Negative (NEGATIVE); Influenza B, PCR Negative (NEGATIVE); Resp Syncytial Virus, PCR Negative (NEGATIVE); SARS-Cov-2 (COVID-19) PCR, MMC Negative (NEGATIVE)
--- NOTE | 2020-04-19 16:08 | NUR ---
PATIENT D/C'D TO [facility] VIA W/C TRANSPORT. TELEPHONE REPORT GIVEN TO SIMONA MARTINEZ LPN AT 3090. PT HAS HER CELL PHONE AND SALES MARKETING COORDINATOR, I WOUND VAC, AND OWN CPAP MACHINE. IV SALINE LOCK REMOVED WITHOUT INCIDENT. PT OFF UNIT AT 1142.
== END 2020-04-19 15:18 | DRG 871 ==
LOC: ER 09:34 → MEDS 14:40
PROVIDERS: Emergency Medicine; Internal Medicine; ADMIT Internal Medicine
DX: A41.51 Sepsis due to Escherichia coli [E. coli] (principal); J18.9 Pneumonia, unspecified organism; E87.1 Hypo-osmolality and hyponatremia; I48.20 Chronic atrial fibrillation, unspecified; N39.0 Urinary tract infection, site not specified; Z68.41 Body mass index [BMI] 40.0-44.9, adult; N17.9 Acute kidney failure, unspecified; Z16.12 Extended spectrum beta lactamase (ESBL) resistance; R65.20 Severe sepsis without septic shock; Z20.828 Contact with and (suspected) exposure to other viral communicable diseases; E66.01 Morbid (severe) obesity due to excess calories; I12.9 Hypertensive chronic kidney disease with stage 1 through stage 4 chronic kidney disease, or unspecified chronic kidney disease; E11.22 Type 2 diabetes mellitus with diabetic chronic kidney disease; N18.30 Chronic kidney disease, stage 3 unspecified; E78.5 Hyperlipidemia, unspecified; S81.802A Unspecified open wound, left lower leg, initial encounter; W19.XXXA Unspecified fall, initial encounter; Z88.2 Allergy status to sulfonamides; F32.9 Major depressive disorder, single episode, unspecified; Z91.81 History of falling
CPT/HCPCS: 0241U; 36415; 51702; 70450; 71045; 80048; 80053; 80069; 81001; 82550; 82553; 82947; 83605; 83735; 85025; 87040; 87077; 87086; 87186; 93005; 93010; 94762; 96374-59; 97110; 97110-CQ; 97161; 97165; 97530; 97530-CQ; 99285-25; A9270; A9270-GY; C1751; J0360; J0456; J0696; J1650; J1940; J2185; J7030; J7050

== ENCOUNTER → 2020-06-08 | Outpatient (CLI) | payer MEDICARE, BC, OTHER ==
[~2020-06-08] MED LIST changes: +Acetaminophen650 M1 PO; +BYDUREON P2 MG/0.61 SC; +CIPR250 PO; +CLOP75 PO; +Calcium + Vita1 EACH PO; +Cymbalta20 MG PO; +FEBU40TA PO; +FEBUXOSTAT40 MG PO; +HUMULIN R100 UNIT/1 SC; +IBU800 M1 PO; +LISI5 PO; +LOVA40 PO; +METO25 PO; +METO50ER PO; +METOPROLOL TART50 MG PO; +NITR100CA PO; +ONDA4ODT MM; +PANT40 PO; +POTA10T PO; +Prozac20 MG PO; +TRESIBA FL100 UNIT/2 SC; +VISBIOME 112.51 EACH PO; +VITAMIN D325 MC3 PO; +XARELTO20 MG PO
[2020-06-08 15:47] LABS: Source, Urine Clean Catch
[2020-06-08 17:01] LABS: Appearance, Urine Clear (Clear); Bilirubin, Urine Neg (Neg); Blood, Urine Neg (Neg); Color, Urine Yellow (P-Yellow); Glucose Qualitative, Urine Neg (Neg); Ketones, Urine Neg (Neg); Leukocyte Esterase, Urine 3+ (Neg); Nitrite, Urine Neg (Neg); Protein, Urine Neg (Neg); Urobilinogen, Urine NORM (Normal)
[2020-06-08 17:07] LABS: White Blood Cells, Urine 25-50 /hpf (0-5)
[2020-06-08 17:08] LABS: Bacteria Many /hpf; Red Blood Cells, Urine 0-2 /hpf (0-2); Squamous Epithelial Cells Few /hpf (Few)
== END ==
LOC: LAB 15:00 → LAB SHORT 15:00
PROVIDERS: Family Medicine
DX: N39.0 Urinary tract infection, site not specified (principal)
CPT/HCPCS: 81001; 87077; 87086; 87186

== ENCOUNTER 2020-10-23 14:00 | Inpatient (IN) | payer OTHER, MEDICARE ==
[~2020-10-23] VITALS: Ht 167.6 cm; Wt 109.8 kg
[~2020-10-23 14:00] MED LIST changes: -Acetaminophen650 M1 PO; -CIPR250 PO; -CLOP75 PO; -HUMULIN R100 UNIT/1 SC; -LISI5 PO; -METO50ER PO; -NITR100CA PO; -ONDA4ODT MM; -PANT40 PO; -POTA10T PO; -Prozac20 MG PO; -VISBIOME 112.51 EACH PO
[2020-10-23 15:07] LABS: BASOPHILS ABSOLUTE AUTO 0.04 K/mm3 (0.00-0.23); BASOPHILS PERCENT AUTO 0 % (0-2); EOSINOPHILS ABSOLUTE AUTO 0.01 K/mm3 (0.00-0.68); EOSINOPHILS PERCENT AUTO 0 % (0-6); Hematocrit 47.8 % (33.0-51.0); Hemoglobin 15.7 g/dL (11.5-16.0); IMMATURE GRAN ABSOLUTE AUTO 0.07 K/mm3 (0.00-0.10); IMMATURE GRAN PERCENT AUTO 1 % (0-1); LYMPHOCYTES ABSOLUTE AUTO 2.14 K/mm3 (0.84-5.20); LYMPHOCYTES PERCENT AUTO 15 % (21-46); MONOCYTES ABSOLUTE AUTO 0.82 K/mm3 (0.16-1.47); MONOCYTES PERCENT AUTO 6 % (4-13); Mean Corpuscular HGB 28.4 pg (26.0-34.0); Mean Corpuscular HGB Conc 32.8 g/dL (31.5-36.5); Mean Corpuscular Volume 87 fL (80-100); Mean Platelet Volume 9.6 fL (9.1-12.4); NEUTROPHILS ABSOLUTE AUTO 11.47 K/mm3 (1.96-9.15); NEUTROPHILS PERCENT AUTO 79 % (41-73); Platelet Count 243 K/mm3 (150-400); RDW Coefficient Variation 13.3 % (11.7-14.2); RDW Standard Deviation 42.5 fL (35.1-46.3); Red Blood Cell Count 5.52 M/mm3 (3.80-5.20); White Blood Cell Count 14.55 K/mm3 (4.00-11.30)
[2020-10-23 15:31] LABS: Albumin, Blood 3.4 g/dL (3.4-5.0); Albumin/Globulin Ratio 0.9 (0.8-1.8); Bilirubin, Total 0.7 mg/dL (0.1-1.0); Bun/Creatinine Ratio 21.4 (12.0-20.0); Calcium, Blood 10.5 mg/dL (8.5-10.1); Creatinine, Blood 0.98 mg/dL (0.40-1.00); Globulin, Blood 3.8 g/dL (2.2-4.0); Potassium, Blood 3.4 mmol/L (3.5-5.5); Total Protein, Blood 7.2 g/dL (6.4-8.2); Troponin I 0.025 ng/mL (0.000-0.040)
[2020-10-23 16:12] LABS: Creatine Kinase MB 10.1 ng/mL (0.0-3.6); Creatine Kinase MB Index 1.1 (0.0-4.0)
[2020-10-23 16:21] LABS: Source, Urine Catheter
[2020-10-23 16:27] LABS: Appearance, Urine Turbid (Clear); Bilirubin, Urine Neg (Neg); Blood, Urine 4+ (Neg); Color, Urine Yellow (P-Yellow); Glucose Qualitative, Urine 2+ (Neg); Ketones, Urine 3+ (Neg); Leukocyte Esterase, Urine Neg (Neg); Nitrite, Urine Neg (Neg); Protein, Urine 4+ (Neg); Specific Gravity, Urine 1.025 (1.003-1.022); Urobilinogen, Urine NORM (Normal)
[2020-10-23 16:38] LABS: Amorphous Light (0-Heavy); Bacteria Mod /hpf; Red Blood Cells, Urine 0-2 /hpf (0-2); Squamous Epithelial Cells Many /hpf (Few); White Blood Cells, Urine 0-2 /hpf (0-5)
[2020-10-23] MEDS ORDERED: METO50 PO (20:46)
[2020-10-23] MEDS ORDERED: METO25 PO (20:46)
[2020-10-24 03:11] LABS: BASOPHILS ABSOLUTE AUTO 0.07 K/mm3 (0.00-0.23); BASOPHILS PERCENT AUTO 1 % (0-2); EOSINOPHILS ABSOLUTE AUTO 0.06 K/mm3 (0.00-0.68); EOSINOPHILS PERCENT AUTO 0 % (0-6); Hematocrit 39.2 % (33.0-51.0); Hemoglobin 13.3 g/dL (11.5-16.0); IMMATURE GRAN ABSOLUTE AUTO 0.05 K/mm3 (0.00-0.10); IMMATURE GRAN PERCENT AUTO 0 % (0-1); LYMPHOCYTES ABSOLUTE AUTO 3.84 K/mm3 (0.84-5.20); LYMPHOCYTES PERCENT AUTO 27 % (21-46); MONOCYTES ABSOLUTE AUTO 1.02 K/mm3 (0.16-1.47); MONOCYTES PERCENT AUTO 7 % (4-13); Mean Corpuscular HGB Conc 33.9 g/dL (31.5-36.5); Mean Corpuscular Volume 86 fL (80-100); Mean Platelet Volume 9.4 fL (9.1-12.4); NEUTROPHILS ABSOLUTE AUTO 9.34 K/mm3 (1.96-9.15); NEUTROPHILS PERCENT AUTO 65 % (41-73); Platelet Count 209 K/mm3 (150-400); RDW Coefficient Variation 13.7 % (11.7-14.2); RDW Standard Deviation 42.6 fL (35.1-46.3); Red Blood Cell Count 4.58 M/mm3 (3.80-5.20); White Blood Cell Count 14.38 K/mm3 (4.00-11.30)
[2020-10-24 03:31] LABS: Anion Gap 6 mmol/L (6-16); Blood Urea Nitrogen 22 mg/dL (8-24); CO2, Blood 29 mmol/L (21-32); CPK Creatine Kinase 675 U/L (26-193); Calcium, Blood 9.3 mg/dL (8.5-10.1); Chloride, Blood 101 mmol/L (98-108); Creatinine, Blood 0.92 mg/dL (0.40-1.00); Glomerular Filtration Rate >60 (60-); Glucose, Blood 190 mg/dL (70-99); Potassium, Blood 3.4 mmol/L (3.5-5.5); Sodium, Blood 136 mmol/L (136-145); Troponin I 0.056 ng/mL (0.000-0.040)
[2020-10-24 13:03] LABS: Free Thyroxine 1.45 ng/dL (0.70-1.60); Thyroid Stimulating Hormone 0.984 uIU/mL (0.360-4.800)
[2020-10-25 18:18] LABS: SARS-Cov-2 (COVID-19) PCR, MMC NEGATIVE (NEGATIVE)
[2020-10-26 05:20] LABS: BASOPHILS ABSOLUTE AUTO 0.06 K/mm3 (0.00-0.23); BASOPHILS PERCENT AUTO 1 % (0-2); EOSINOPHILS PERCENT AUTO 2 % (0-6); Hematocrit 40.2 % (33.0-51.0); Hemoglobin 13.3 g/dL (11.5-16.0); IMMATURE GRAN ABSOLUTE AUTO 0.03 K/mm3 (0.00-0.10); IMMATURE GRAN PERCENT AUTO 0 % (0-1); LYMPHOCYTES ABSOLUTE AUTO 4.24 K/mm3 (0.84-5.20); LYMPHOCYTES PERCENT AUTO 44 % (21-46); MONOCYTES ABSOLUTE AUTO 0.66 K/mm3 (0.16-1.47); MONOCYTES PERCENT AUTO 7 % (4-13); Mean Corpuscular HGB 28.9 pg (26.0-34.0); Mean Corpuscular HGB Conc 33.1 g/dL (31.5-36.5); Mean Corpuscular Volume 87 fL (80-100); Mean Platelet Volume 9.5 fL (9.1-12.4); NEUTROPHILS ABSOLUTE AUTO 4.37 K/mm3 (1.96-9.15); NEUTROPHILS PERCENT AUTO 46 % (41-73); Platelet Count 219 K/mm3 (150-400); RDW Coefficient Variation 13.8 % (11.7-14.2); RDW Standard Deviation 43.6 fL (35.1-46.3); Red Blood Cell Count 4.61 M/mm3 (3.80-5.20); White Blood Cell Count 9.56 K/mm3 (4.00-11.30)
[2020-10-26 05:56] LABS: Anion Gap 5 mmol/L (6-16); Blood Urea Nitrogen 22 mg/dL (8-24); Bun/Creatinine Ratio 24.1 (12.0-20.0); CO2, Blood 26 mmol/L (21-32); Calcium, Blood 9.2 mg/dL (8.5-10.1); Chloride, Blood 107 mmol/L (98-108); Creatinine, Blood 0.91 mg/dL (0.40-1.00); Glomerular Filtration Rate >60 (60-); Glucose, Blood 126 mg/dL (70-99); Potassium, Blood 3.4 mmol/L (3.5-5.5); Sodium, Blood 138 mmol/L (136-145)
[2020-10-26] MEDS ORDERED: POTA10T PO (12:37)
[2020-10-26] MEDS ORDERED: Prozac20 MG PO (12:37)
[2020-10-26 16:07] LABS: PCO2 Arterial 41.7 mmHg (35-45); pH Blood Arterial 7.42 (7.35-7.45)
[2020-10-27 06:38] LABS: Source, Urine Catheter
[2020-10-27 06:42] LABS: Appearance, Urine Cloudy (Clear); Bilirubin, Urine Neg (Neg); Blood, Urine 3+ (Neg); Color, Urine Yellow (P-Yellow); Glucose Qualitative, Urine Neg (Neg); Ketones, Urine 2+ (Neg); Leukocyte Esterase, Urine 3+ (Neg); Nitrite, Urine Neg (Neg); Protein, Urine 3+ (Neg); Specific Gravity, Urine 1.025 (1.003-1.022); Urobilinogen, Urine NORM (Normal)
[2020-10-27 06:58] LABS: Bacteria Many /hpf; Squamous Epithelial Cells Mod /hpf (Few); White Blood Cells, Urine TNTC /hpf (0-5)
[2020-10-27 08:42] LABS: PCO2 Arterial 31.6 mmHg (35-45); PO2 Arterial 68.5 mmHg (80-100); pH Blood Arterial 7.39 (7.35-7.45)
[2020-10-27 08:51] LABS: BASOPHILS ABSOLUTE AUTO 0.03 K/mm3 (0.00-0.23); BASOPHILS PERCENT AUTO 0 % (0-2); EOSINOPHILS PERCENT AUTO 0 % (0-6); Hematocrit 45.3 % (33.0-51.0); Hemoglobin 15.2 g/dL (11.5-16.0); IMMATURE GRAN ABSOLUTE AUTO 0.09 K/mm3 (0.00-0.10); IMMATURE GRAN PERCENT AUTO 1 % (0-1); LYMPHOCYTES ABSOLUTE AUTO 1.77 K/mm3 (0.84-5.20); LYMPHOCYTES PERCENT AUTO 13 % (21-46); MONOCYTES ABSOLUTE AUTO 0.53 K/mm3 (0.16-1.47); MONOCYTES PERCENT AUTO 4 % (4-13); Mean Corpuscular HGB 29.1 pg (26.0-34.0); Mean Corpuscular HGB Conc 33.6 g/dL (31.5-36.5); Mean Corpuscular Volume 87 fL (80-100); Mean Platelet Volume 9.8 fL (9.1-12.4); NEUTROPHILS ABSOLUTE AUTO 11.72 K/mm3 (1.96-9.15); NEUTROPHILS PERCENT AUTO 83 % (41-73); Platelet Count 327 K/mm3 (150-400); RDW Coefficient Variation 14.2 % (11.7-14.2); RDW Standard Deviation 44.6 fL (35.1-46.3); Red Blood Cell Count 5.22 M/mm3 (3.80-5.20); White Blood Cell Count 14.14 K/mm3 (4.00-11.30)
[2020-10-27 09:39] LABS: Albumin, Blood 3.2 g/dL (3.4-5.0); Albumin/Globulin Ratio 0.8 (0.8-1.8); Bilirubin, Total 0.7 mg/dL (0.1-1.0); Bun/Creatinine Ratio 23.8 (12.0-20.0); Calcium, Blood 9.6 mg/dL (8.5-10.1); Creatinine, Blood 1.22 mg/dL (0.40-1.00); Globulin, Blood 3.9 g/dL (2.2-4.0); Potassium, Blood 5.2 mmol/L (3.5-5.5); Total Protein, Blood 7.1 g/dL (6.4-8.2)
[2020-10-27 09:59] LABS: International Normalized Ratio 1.18; Prothrombin Time Results 12.6 Sec (9.7-11.5)
[2020-10-27 11:10] LABS: Source, Urine Catheter
[2020-10-27 11:15] LABS: Appearance, Urine Hazy (Clear); Bilirubin, Urine Neg (Neg); Blood, Urine 2+ (Neg); Color, Urine Yellow (P-Yellow); Glucose Qualitative, Urine Neg (Neg); Ketones, Urine 2+ (Neg); Leukocyte Esterase, Urine 2+ (Neg); Nitrite, Urine Neg (Neg); Protein, Urine 4+ (Neg); Specific Gravity, Urine 1.025 (1.003-1.022); Urobilinogen, Urine NORM (Normal)
[2020-10-27 11:31] LABS: Bacteria Many /hpf; Squamous Epithelial Cells Rare /hpf (Few); White Blood Cells, Urine 25-50 /hpf (0-5)
[2020-10-28 10:17] LABS: BASOPHILS ABSOLUTE AUTO 0.03 K/mm3 (0.00-0.23); BASOPHILS PERCENT AUTO 0 % (0-2); EOSINOPHILS PERCENT AUTO 0 % (0-6); Hematocrit 43.8 % (33.0-51.0); Hemoglobin 14.4 g/dL (11.5-16.0); IMMATURE GRAN ABSOLUTE AUTO 0.11 K/mm3 (0.00-0.10); IMMATURE GRAN PERCENT AUTO 1 % (0-1); LYMPHOCYTES ABSOLUTE AUTO 3.02 K/mm3 (0.84-5.20); LYMPHOCYTES PERCENT AUTO 17 % (21-46); MONOCYTES ABSOLUTE AUTO 1.09 K/mm3 (0.16-1.47); MONOCYTES PERCENT AUTO 6 % (4-13); Mean Corpuscular HGB 29.3 pg (26.0-34.0); Mean Corpuscular HGB Conc 32.9 g/dL (31.5-36.5); Mean Corpuscular Volume 89 fL (80-100); Mean Platelet Volume 10.4 fL (9.1-12.4); NEUTROPHILS ABSOLUTE AUTO 13.25 K/mm3 (1.96-9.15); NEUTROPHILS PERCENT AUTO 76 % (41-73); Platelet Count 295 K/mm3 (150-400); RDW Coefficient Variation 14.6 % (11.7-14.2); RDW Standard Deviation 47.4 fL (35.1-46.3); Red Blood Cell Count 4.91 M/mm3 (3.80-5.20)
[2020-10-28 10:25] LABS: Alanine Aminotransfer (ALT/SGP 572 U/L (12-78); Albumin, Blood 3.1 g/dL (3.4-5.0); Albumin/Globulin Ratio 0.9 (0.8-1.8); Alk Phos 74 U/L (50-136); Anion Gap 6 mmol/L (6-16); Aspartate Aminotrans (AST/SGOT 573 U/L (12-37); Bilirubin, Direct 0.2 mg/dL (0.0-0.3); Bilirubin, Indirect 0.4 mg/dL (0.1-0.7); Bilirubin, Total 0.6 mg/dL (0.1-1.0); Blood Urea Nitrogen 35 mg/dL (8-24); Bun/Creatinine Ratio 29.7 (12.0-20.0); CO2, Blood 23 mmol/L (21-32); Calcium, Blood 9.5 mg/dL (8.5-10.1); Chloride, Blood 111 mmol/L (98-108); Creatinine, Blood 1.18 mg/dL (0.40-1.00); Globulin, Blood 3.4 g/dL (2.2-4.0); Glomerular Filtration Rate 47 (60-); Glucose, Blood 228 mg/dL (70-99); Phosphorus, Blood 2.8 mg/dL (2.5-4.9); Potassium, Blood 4.4 mmol/L (3.5-5.5); Sodium, Blood 140 mmol/L (136-145); Total Protein, Blood 6.5 g/dL (6.4-8.2)
[2020-10-29 03:22] LABS: BASOPHILS ABSOLUTE AUTO 0.02 K/mm3 (0.00-0.23); BASOPHILS PERCENT AUTO 0 % (0-2); EOSINOPHILS PERCENT AUTO 0 % (0-6); Hematocrit 40.4 % (33.0-51.0); Hemoglobin 13.3 g/dL (11.5-16.0); IMMATURE GRAN ABSOLUTE AUTO 0.09 K/mm3 (0.00-0.10); IMMATURE GRAN PERCENT AUTO 1 % (0-1); LYMPHOCYTES ABSOLUTE AUTO 2.95 K/mm3 (0.84-5.20); LYMPHOCYTES PERCENT AUTO 21 % (21-46); MONOCYTES ABSOLUTE AUTO 1.11 K/mm3 (0.16-1.47); MONOCYTES PERCENT AUTO 8 % (4-13); Mean Corpuscular HGB Conc 32.9 g/dL (31.5-36.5); Mean Corpuscular Volume 88 fL (80-100); Mean Platelet Volume 9.8 fL (9.1-12.4); NEUTROPHILS PERCENT AUTO 70 % (41-73); NRBC ABSOLUTE 0.02 K/mm3 (0.00-0.02); NRBC Auto 0.1 /100 WBC (0.0-0.2); Platelet Count 237 K/mm3 (150-400); RDW Coefficient Variation 14.5 % (11.7-14.2); RDW Standard Deviation 46.6 fL (35.1-46.3); Red Blood Cell Count 4.59 M/mm3 (3.80-5.20); White Blood Cell Count 13.87 K/mm3 (4.00-11.30)
[2020-10-29 03:53] LABS: Albumin, Blood 2.8 g/dL (3.4-5.0); Albumin/Globulin Ratio 0.8 (0.8-1.8); Bilirubin, Total 0.7 mg/dL (0.1-1.0); Bun/Creatinine Ratio 33.3 (12.0-20.0); Calcium, Blood 9.1 mg/dL (8.5-10.1); Creatinine, Blood 1.17 mg/dL (0.40-1.00); Globulin, Blood 3.3 g/dL (2.2-4.0); Potassium, Blood 3.6 mmol/L (3.5-5.5); Total Protein, Blood 6.1 g/dL (6.4-8.2)
[2020-10-29 03:57] LABS: Troponin I 2.7 ng/mL (0.000-0.040)
[2020-10-29 09:03] LABS: BASOPHILS ABSOLUTE AUTO 0.03 K/mm3 (0.00-0.23); BASOPHILS PERCENT AUTO 0 % (0-2); EOSINOPHILS PERCENT AUTO 0 % (0-6); Hematocrit 40.8 % (33.0-51.0); Hemoglobin 13.5 g/dL (11.5-16.0); IMMATURE GRAN ABSOLUTE AUTO 0.12 K/mm3 (0.00-0.10); IMMATURE GRAN PERCENT AUTO 1 % (0-1); LYMPHOCYTES ABSOLUTE AUTO 2.54 K/mm3 (0.84-5.20); LYMPHOCYTES PERCENT AUTO 19 % (21-46); MONOCYTES ABSOLUTE AUTO 1.04 K/mm3 (0.16-1.47); MONOCYTES PERCENT AUTO 8 % (4-13); Mean Corpuscular HGB 29.4 pg (26.0-34.0); Mean Corpuscular HGB Conc 33.1 g/dL (31.5-36.5); Mean Corpuscular Volume 89 fL (80-100); NEUTROPHILS ABSOLUTE AUTO 10.01 K/mm3 (1.96-9.15); NEUTROPHILS PERCENT AUTO 73 % (41-73); NRBC ABSOLUTE 0.03 K/mm3 (0.00-0.02); NRBC Auto 0.2 /100 WBC (0.0-0.2); Platelet Count 231 K/mm3 (150-400); RDW Coefficient Variation 14.6 % (11.7-14.2); RDW Standard Deviation 47.1 fL (35.1-46.3); Red Blood Cell Count 4.59 M/mm3 (3.80-5.20); White Blood Cell Count 13.74 K/mm3 (4.00-11.30)
[2020-10-29 09:16] LABS: Albumin, Blood 2.8 g/dL (3.4-5.0); Anion Gap 6 mmol/L (6-16); Blood Urea Nitrogen 41 mg/dL (8-24); Bun/Creatinine Ratio 34.5 (12.0-20.0); CO2, Blood 26 mmol/L (21-32); Calcium, Blood 9.1 mg/dL (8.5-10.1); Chloride, Blood 110 mmol/L (98-108); Creatinine, Blood 1.19 mg/dL (0.40-1.00); Glomerular Filtration Rate 47 (60-); Glucose, Blood 241 mg/dL (70-99); Phosphorus, Blood 2.6 mg/dL (2.5-4.9); Potassium, Blood 3.7 mmol/L (3.5-5.5); Sodium, Blood 142 mmol/L (136-145); Vancomycin, Trough 18.7 ug/mL (5.0-10.0)
[2020-10-30 10:36] LABS: BASOPHILS ABSOLUTE AUTO 0.02 K/mm3 (0.00-0.23); BASOPHILS PERCENT AUTO 0 % (0-2); EOSINOPHILS ABSOLUTE AUTO 0.02 K/mm3 (0.00-0.68); EOSINOPHILS PERCENT AUTO 0 % (0-6); Hematocrit 41.2 % (33.0-51.0); Hemoglobin 13.3 g/dL (11.5-16.0); IMMATURE GRAN ABSOLUTE AUTO 0.06 K/mm3 (0.00-0.10); IMMATURE GRAN PERCENT AUTO 1 % (0-1); LYMPHOCYTES ABSOLUTE AUTO 2.07 K/mm3 (0.84-5.20); LYMPHOCYTES PERCENT AUTO 20 % (21-46); MONOCYTES ABSOLUTE AUTO 0.87 K/mm3 (0.16-1.47); MONOCYTES PERCENT AUTO 9 % (4-13); Mean Corpuscular HGB Conc 32.3 g/dL (31.5-36.5); Mean Corpuscular Volume 90 fL (80-100); Mean Platelet Volume 10.2 fL (9.1-12.4); NEUTROPHILS ABSOLUTE AUTO 7.18 K/mm3 (1.96-9.15); NEUTROPHILS PERCENT AUTO 70 % (41-73); NRBC ABSOLUTE 0.02 K/mm3 (0.00-0.02); NRBC Auto 0.2 /100 WBC (0.0-0.2); Platelet Count 211 K/mm3 (150-400); RDW Coefficient Variation 14.5 % (11.7-14.2); RDW Standard Deviation 46.4 fL (35.1-46.3); Red Blood Cell Count 4.59 M/mm3 (3.80-5.20); White Blood Cell Count 10.22 K/mm3 (4.00-11.30)
[2020-10-30 10:48] LABS: Albumin, Blood 2.8 g/dL (3.4-5.0); Anion Gap 5 mmol/L (6-16); Blood Urea Nitrogen 37 mg/dL (8-24); Bun/Creatinine Ratio 33.9 (12.0-20.0); CO2, Blood 29 mmol/L (21-32); Calcium, Blood 9.5 mg/dL (8.5-10.1); Chloride, Blood 109 mmol/L (98-108); Creatinine, Blood 1.09 mg/dL (0.40-1.00); Glomerular Filtration Rate 52 (60-); Glucose, Blood 244 mg/dL (70-99); Phosphorus, Blood 2.8 mg/dL (2.5-4.9); Potassium, Blood 3.6 mmol/L (3.5-5.5); Sodium, Blood 143 mmol/L (136-145)
[2020-10-31 03:34] LABS: BASOPHILS ABSOLUTE AUTO 0.02 K/mm3 (0.00-0.23); BASOPHILS PERCENT AUTO 0 % (0-2); EOSINOPHILS PERCENT AUTO 1 % (0-6); Hematocrit 38.3 % (33.0-51.0); Hemoglobin 12.4 g/dL (11.5-16.0); IMMATURE GRAN ABSOLUTE AUTO 0.05 K/mm3 (0.00-0.10); IMMATURE GRAN PERCENT AUTO 1 % (0-1); LYMPHOCYTES ABSOLUTE AUTO 3.37 K/mm3 (0.84-5.20); LYMPHOCYTES PERCENT AUTO 31 % (21-46); MONOCYTES ABSOLUTE AUTO 1.06 K/mm3 (0.16-1.47); MONOCYTES PERCENT AUTO 10 % (4-13); Mean Corpuscular HGB 28.9 pg (26.0-34.0); Mean Corpuscular HGB Conc 32.4 g/dL (31.5-36.5); Mean Corpuscular Volume 89 fL (80-100); Mean Platelet Volume 9.8 fL (9.1-12.4); NEUTROPHILS ABSOLUTE AUTO 6.25 K/mm3 (1.96-9.15); NEUTROPHILS PERCENT AUTO 58 % (41-73); NRBC ABSOLUTE 0.02 K/mm3 (0.00-0.02); NRBC Auto 0.2 /100 WBC (0.0-0.2); Platelet Count 203 K/mm3 (150-400); RDW Coefficient Variation 14.4 % (11.7-14.2); RDW Standard Deviation 45.9 fL (35.1-46.3); Red Blood Cell Count 4.29 M/mm3 (3.80-5.20); White Blood Cell Count 10.85 K/mm3 (4.00-11.30)
[2020-10-31 03:53] LABS: Albumin, Blood 2.5 g/dL (3.4-5.0); Albumin/Globulin Ratio 0.9 (0.8-1.8); Bilirubin, Total 0.7 mg/dL (0.1-1.0); Calcium, Blood 9.1 mg/dL (8.5-10.1); Creatinine, Blood 1.03 mg/dL (0.40-1.00); Globulin, Blood 2.8 g/dL (2.2-4.0); Potassium, Blood 3.3 mmol/L (3.5-5.5); Total Protein, Blood 5.3 g/dL (6.4-8.2)
[2020-11-01 05:54] LABS: BASOPHILS ABSOLUTE AUTO 0.03 K/mm3 (0.00-0.23); BASOPHILS PERCENT AUTO 0 % (0-2); EOSINOPHILS ABSOLUTE AUTO 0.13 K/mm3 (0.00-0.68); EOSINOPHILS PERCENT AUTO 1 % (0-6); Hematocrit 40.7 % (33.0-51.0); Hemoglobin 12.9 g/dL (11.5-16.0); IMMATURE GRAN ABSOLUTE AUTO 0.08 K/mm3 (0.00-0.10); IMMATURE GRAN PERCENT AUTO 1 % (0-1); LYMPHOCYTES PERCENT AUTO 34 % (21-46); MONOCYTES PERCENT AUTO 8 % (4-13); Mean Corpuscular HGB 28.8 pg (26.0-34.0); Mean Corpuscular HGB Conc 31.7 g/dL (31.5-36.5); Mean Corpuscular Volume 91 fL (80-100); Mean Platelet Volume 10.2 fL (9.1-12.4); NEUTROPHILS ABSOLUTE AUTO 6.71 K/mm3 (1.96-9.15); NEUTROPHILS PERCENT AUTO 56 % (41-73); Platelet Count 222 K/mm3 (150-400); RDW Coefficient Variation 14.6 % (11.7-14.2); RDW Standard Deviation 47.5 fL (35.1-46.3); Red Blood Cell Count 4.48 M/mm3 (3.80-5.20); White Blood Cell Count 12.05 K/mm3 (4.00-11.30)
[2020-11-01 06:11] LABS: Alanine Aminotransfer (ALT/SGP 250 U/L (12-78); Albumin, Blood 2.5 g/dL (3.4-5.0); Albumin/Globulin Ratio 0.9 (0.8-1.8); Alk Phos 63 U/L (50-136); Anion Gap 2 mmol/L (6-16); Aspartate Aminotrans (AST/SGOT 41 U/L (12-37); Bilirubin, Total 0.7 mg/dL (0.1-1.0); Blood Urea Nitrogen 27 mg/dL (8-24); Bun/Creatinine Ratio 33.3 (12.0-20.0); CO2, Blood 34 mmol/L (21-32); Calcium, Blood 9.4 mg/dL (8.5-10.1); Chloride, Blood 105 mmol/L (98-108); Creatinine, Blood 0.81 mg/dL (0.40-1.00); Globulin, Blood 2.8 g/dL (2.2-4.0); Glomerular Filtration Rate >60 (60-); Glucose, Blood 84 mg/dL (70-99); Potassium, Blood 3.5 mmol/L (3.5-5.5); Sodium, Blood 141 mmol/L (136-145); Total Protein, Blood 5.3 g/dL (6.4-8.2)
[2020-11-02 04:43] LABS: Hematocrit 41.9 % (33.0-51.0); Hemoglobin 13.3 g/dL (11.5-16.0); Mean Corpuscular HGB 28.7 pg (26.0-34.0); Mean Corpuscular HGB Conc 31.7 g/dL (31.5-36.5); Mean Corpuscular Volume 90 fL (80-100); Mean Platelet Volume 10.3 fL (9.1-12.4); Platelet Count 244 K/mm3 (150-400); RDW Coefficient Variation 14.8 % (11.7-14.2); RDW Standard Deviation 47.9 fL (35.1-46.3); Red Blood Cell Count 4.64 M/mm3 (3.80-5.20); White Blood Cell Count 15.33 K/mm3 (4.00-11.30)
[2020-11-02 05:08] LABS: Alanine Aminotransfer (ALT/SGP 187 U/L (12-78); Albumin, Blood 2.5 g/dL (3.4-5.0); Albumin/Globulin Ratio 0.8 (0.8-1.8); Alk Phos 70 U/L (50-136); Anion Gap 3 mmol/L (6-16); Aspartate Aminotrans (AST/SGOT 47 U/L (12-37); Bilirubin, Total 0.6 mg/dL (0.1-1.0); Blood Urea Nitrogen 28 mg/dL (8-24); Bun/Creatinine Ratio 34.8 (12.0-20.0); CO2, Blood 33 mmol/L (21-32); Calcium, Blood 9.5 mg/dL (8.5-10.1); Chloride, Blood 102 mmol/L (98-108); Creatinine, Blood 0.81 mg/dL (0.40-1.00); Globulin, Blood 3.1 g/dL (2.2-4.0); Glomerular Filtration Rate >60 (60-); Glucose, Blood 119 mg/dL (70-99); Potassium, Blood 5.1 mmol/L (3.5-5.5); Sodium, Blood 138 mmol/L (136-145); Total Protein, Blood 5.6 g/dL (6.4-8.2)
[2020-11-02 06:36] LABS: BASOPHILS PERCENT MAN 0 % (0-2); EOSINOPHILS ABSOLUTE MAN 0.15 K/mm3 (0.00-0.68); EOSINOPHILS PERCENT MAN 1 % (0-6); LYMPHOCYTES ABSOLUTE MAN 4.75 K/mm3 (0.84-5.20); LYMPHOCYTES PERCENT MAN 31 % (21-46); MONOCYTES ABSOLUTE MAN 1.37 K/mm3 (0.16-1.47); MONOCYTES PERCENT MAN 9 % (4-13); MYELOCYTE ABSOLUTE MAN 0.15 K/mm3 (0.00-0.00); MYELOCYTE PERCENT MAN 1 % (0-0); NEUTROPHILS ABSOLUTE MAN 8.89 K/mm3 (1.96-9.15); SEG NEUTROPHILS PERCENT MAN 58 % (41-73); TOTAL CELLS COUNTED 100
[2020-11-02] MEDS ORDERED: NITR100CA PO (08:58)
[2020-11-02] MEDS ORDERED: LISI5 PO (08:58)
[2020-11-02] MEDS ORDERED: METO50ER PO ×2 (08:58→10:46)
[2020-11-02] MEDS ORDERED: VISBIOME 112.51 EACH PO (08:59)
[2020-11-02] MEDS ORDERED: CLOP75 PO (08:59)
[2020-11-02] MEDS ORDERED: XARELTO20 MG PO (08:59)
[2020-11-02] MEDS ORDERED: FURO20 PO (08:59)
[2020-11-02] MEDS ORDERED: HUMULIN R100 UNIT/1 SC (11:05)
[2020-11-02] MEDS ORDERED: ONDA4ODT MM (11:07)
[2020-11-02] MEDS ORDERED: Acetaminophen650 M1 PO (11:07)
[2020-11-02] MEDS ORDERED: LOVA40 PO (11:08)
[2020-11-02 14:25] LABS: SARS-Cov-2 (COVID-19) PCR, MMC NEGATIVE (NEGATIVE)
== END 2020-11-02 16:20 | DRG 557 ==
LOC: ER 14:00 → MEDS 14:01 → ICUW 10-24 15:39 → MEDS 10-24 15:39 → ICUW 10-27 09:02 → MEDS 10-31 20:37
PROVIDERS: Emergency Medicine; Family Medicine; Internal Medicine; Internal Medicine Critical Care Medicine; ADMIT Family Medicine
PROC: 5A09357 Assistance with Respiratory Ventilation, Less than 24 Consecutive Hours, Continuous Positive Airway Pressure (ICD-10-PCS; principal; 2020-10-29)
DX: M62.82 Rhabdomyolysis (principal); J96.01 Acute respiratory failure with hypoxia; G92 Toxic encephalopathy; I21.A1 Myocardial infarction type 2; I50.41 Acute combined systolic (congestive) and diastolic (congestive) heart failure; J69.0 Pneumonitis due to inhalation of food and vomit; F19.239 Other psychoactive substance dependence with withdrawal, unspecified; N17.9 Acute kidney failure, unspecified; I48.20 Chronic atrial fibrillation, unspecified; E87.1 Hypo-osmolality and hyponatremia; I42.9 Cardiomyopathy, unspecified; N39.0 Urinary tract infection, site not specified; E87.2 Acidosis; I13.0 Hypertensive heart and chronic kidney disease with heart failure and stage 1 through stage 4 chronic kidney disease, or unspecified chronic kidney disease; E87.6 Hypokalemia; N18.30 Chronic kidney disease, stage 3 unspecified; E11.22 Type 2 diabetes mellitus with diabetic chronic kidney disease; F32.9 Major depressive disorder, single episode, unspecified; F41.9 Anxiety disorder, unspecified; E66.1 Drug-induced obesity; E66.01 Morbid (severe) obesity due to excess calories; E78.5 Hyperlipidemia, unspecified; E11.65 Type 2 diabetes mellitus with hyperglycemia; Z79.82 Long term (current) use of aspirin; Z79.899 Other long term (current) drug therapy; E83.52 Hypercalcemia; F03.90 Unspecified dementia, unspecified severity, without behavioral disturbance, psychotic disturbance, mood disturbance, and anxiety; B96.20 Unspecified Escherichia coli [E. coli] as the cause of diseases classified elsewhere; W18.2XXA Fall in (into) shower or empty bathtub, initial encounter
CPT/HCPCS: 36415; 36600; 51703; 70450; 70496; 71045; 71046; 72070; 72100; 72125; 76705; 80048; 80053; 80069; 80076; 80202; 81001; 82140; 82550; 82553; 82607; 82746; 82803; 82947; 83605; 83880; 84100; 84145; 84439; 84443; 84484; 85025; 85379; 85610; 85651; 85730; 87040; 87077; 87086; 87186; 92526; 92610; 93005; 93010; 93306; 93880; 94660; 94762; 96365; 96366; 96372; 96372-59; 97110; 97162; 97164; 97166; 97168; 97530; 97535; 99285-25; A9270; C1751; G0378; J0692; J1644; J1650; J1815; J1940; J1956; J2185; J3370; J3480; J7030; J7050; Q9967; U0004

== ENCOUNTER 2020-11-18 17:29 | Inpatient (IN) | payer OTHER ==
[~2020-11-18] VITALS: Ht 167.6 cm; Wt 105.7 kg
[~2020-11-18 17:29] MED LIST changes: +Acetaminophen650 M1 PO; +CLOP75 PO; +HUMULIN R100 UNIT/1 SC; +LISI5 PO; +METO50ER PO; +NITR100CA PO; +ONDA4ODT MM; +POTA10T PO; +Prozac20 MG PO; +VISBIOME 112.51 EACH PO
[2020-11-18 18:15] LABS: BASOPHILS ABSOLUTE AUTO 0.04 K/mm3 (0.00-0.23); BASOPHILS PERCENT AUTO 0 % (0-2); EOSINOPHILS ABSOLUTE AUTO 0.12 K/mm3 (0.00-0.68); EOSINOPHILS PERCENT AUTO 1 % (0-6); Hematocrit 20.2 % (33.0-51.0); Hemoglobin 6.5 g/dL (11.5-16.0); IMMATURE GRAN ABSOLUTE AUTO 0.08 K/mm3 (0.00-0.10); IMMATURE GRAN PERCENT AUTO 1 % (0-1); LYMPHOCYTES ABSOLUTE AUTO 4.07 K/mm3 (0.84-5.20); LYMPHOCYTES PERCENT AUTO 34 % (21-46); MONOCYTES ABSOLUTE AUTO 0.67 K/mm3 (0.16-1.47); MONOCYTES PERCENT AUTO 6 % (4-13); Mean Corpuscular HGB 30.1 pg (26.0-34.0); Mean Corpuscular HGB Conc 32.2 g/dL (31.5-36.5); Mean Corpuscular Volume 94 fL (80-100); NEUTROPHILS ABSOLUTE AUTO 7.03 K/mm3 (1.96-9.15); NEUTROPHILS PERCENT AUTO 59 % (41-73); NRBC ABSOLUTE 0.06 K/mm3 (0.00-0.02); NRBC Auto 0.5 /100 WBC (0.0-0.2); Platelet Count 195 K/mm3 (150-400); RDW Coefficient Variation 14.7 % (11.7-14.2); RDW Standard Deviation 48.1 fL (35.1-46.3); Red Blood Cell Count 2.16 M/mm3 (3.80-5.20); White Blood Cell Count 12.01 K/mm3 (4.00-11.30)
[2020-11-18 18:25] LABS: Albumin, Blood 2.7 g/dL (3.4-5.0); Albumin/Globulin Ratio 0.9 (0.8-1.8); Bilirubin, Total 0.2 mg/dL (0.1-1.0); Bun/Creatinine Ratio 65.6 (12.0-20.0); Calcium, Blood 9.7 mg/dL (8.5-10.1); Creatinine, Blood 0.99 mg/dL (0.40-1.00); Globulin, Blood 2.9 g/dL (2.2-4.0); Potassium, Blood 4.8 mmol/L (3.5-5.5); Total Protein, Blood 5.6 g/dL (6.4-8.2)
[2020-11-18 18:44] LABS: International Normalized Ratio 1.15; Prothrombin Time Results 12.3 Sec (9.7-11.5)
[2020-11-19 03:29] LABS: BASOPHILS ABSOLUTE AUTO 0.04 K/mm3 (0.00-0.23); BASOPHILS PERCENT AUTO 0 % (0-2); EOSINOPHILS ABSOLUTE AUTO 0.15 K/mm3 (0.00-0.68); EOSINOPHILS PERCENT AUTO 2 % (0-6); Hematocrit 24.8 % (33.0-51.0); Hemoglobin 7.9 g/dL (11.5-16.0); IMMATURE GRAN ABSOLUTE AUTO 0.05 K/mm3 (0.00-0.10); IMMATURE GRAN PERCENT AUTO 1 % (0-1); LYMPHOCYTES ABSOLUTE AUTO 3.77 K/mm3 (0.84-5.20); LYMPHOCYTES PERCENT AUTO 37 % (21-46); MONOCYTES ABSOLUTE AUTO 0.67 K/mm3 (0.16-1.47); MONOCYTES PERCENT AUTO 7 % (4-13); Mean Corpuscular HGB 29.5 pg (26.0-34.0); Mean Corpuscular HGB Conc 31.9 g/dL (31.5-36.5); Mean Corpuscular Volume 93 fL (80-100); Mean Platelet Volume 9.7 fL (9.1-12.4); NEUTROPHILS ABSOLUTE AUTO 5.65 K/mm3 (1.96-9.15); NEUTROPHILS PERCENT AUTO 55 % (41-73); NRBC ABSOLUTE 0.04 K/mm3 (0.00-0.02); NRBC Auto 0.4 /100 WBC (0.0-0.2); Platelet Count 154 K/mm3 (150-400); RDW Coefficient Variation 15.1 % (11.7-14.2); RDW Standard Deviation 49.1 fL (35.1-46.3); Red Blood Cell Count 2.68 M/mm3 (3.80-5.20); White Blood Cell Count 10.33 K/mm3 (4.00-11.30)
[2020-11-19 03:50] LABS: Albumin, Blood 2.5 g/dL (3.4-5.0); Albumin/Globulin Ratio 0.9 (0.8-1.8); Bilirubin, Total 0.4 mg/dL (0.1-1.0); Calcium, Blood 9.1 mg/dL (8.5-10.1); Creatinine, Blood 0.95 mg/dL (0.40-1.00); Globulin, Blood 2.7 g/dL (2.2-4.0); Potassium, Blood 4.6 mmol/L (3.5-5.5); Total Protein, Blood 5.2 g/dL (6.4-8.2)
--- NOTE | 2020-11-19 07:26 | NUR ---
SHIFT SUMMARY ER ADMIT THIS SHIFT, PT RECEIVING BLOOD AT TIME OF ARRIVAL TO THE UNIT, PG PLACED IN ESTEBAN, PROTONIX DRIP INFUSING PER ORDER, PT TOLERATED BLOOD (2 UNITS) WELL W/ NO REACTIONS, 3 TARRY STOOLS THIS SHIFT, INCONTINENT OF BLADDER W/ 2 UNMEASURED VOIDS, PT JOY AT SLEEP BUT DOES NOT APPEAR TO BE IN ANY ACUTE DISTRESS WHEN OBSERVING HER SLEEPING, CONFUSED ON LOCATION WHEN FIRST WAKING UP BUT REORIENTS EASILY, NO ACUTE EVETNS THIS SHIFT, CALL LIGHT IN REACH, REPORT GIVEN TO DAY RN.
[2020-11-19 08:46] LABS: Hemoglobin 7.9 g/dL (11.5-16.0)
--- NOTE | 2020-11-19 09:00 | NUR ---
PT ALERT AND ORIENTED X4. ON 2L OXYMIZER SATING ABOVE 94%. TELE SHOWING AFIB WITH HR 60-70'S. DENIES CHEST PAIN/PRESSURE. VITAL SIGNS STABLE. BOWEL TONES HEARD. PT DENIES NAUSEA. NO EPISODES OF TARRY STOOL THIS AM. GI CONSULT, NEW ORDERS. OCTREOTIDE AND SANDOSTATIN INFUSING. WHEELCHAIR AT BASELINE. PT ABLE TO TURN IN BED. PT STATES SHE OVERALL FEELS WEAK. SKIN BRUISING THROUGHOUT. INCONTINENCE, ATTENDS IN PLACE. CBG Q6. WILL CONTINUE TO MONITOR.
[2020-11-19 11:28] LABS: SARS-Cov-2 (COVID-19) PCR, MMC NEGATIVE (NEGATIVE)
[2020-11-19 12:45] LABS: Hematocrit 24.4 % (33.0-51.0); Hemoglobin 7.8 g/dL (11.5-16.0)
--- NOTE | 2020-11-19 13:09 | NUR ---
INTO SDS ADMISSION TO UNIT STARTED.
--- NOTE | 2020-11-19 13:43 | NUR ---
11/19/20 1343 Freeman Reynaga See Anesthesia record. O2 VIA N/C INTACT THROUGHOUT SEDATION/PROCEDURE. O2 VIA N/C INTACT THROUGHOUT SEDATION/PROCEDURE. 3-LEAD EKG REVIEWED WITH PHYSICIAN PRIOR TO START OF PROCEDURE. History, Chart, Medications and Allergies reviewed before start of procedure.
--- NOTE | 2020-11-19 15:06 | NUR ---
PT BACK FROM UPPER SCOPE. ALERT AND ORIENTED X4. ON 2 L OXYMIZER. TELE SHOWING AFIB WITH HR 60'S. DENIES PAIN. FULL LIQUID DIET. POST VITAL SIGNS STABLE. DAUGHTER AT BEDSIDE. WILL CONTINUE TO MONITOR.
--- NOTE | 2020-11-19 18:38 | NUR ---
SHIFT SUMMARY: NO ACUTE CHANGES. VITAL SIGNS STABLE. ABLE TO EAT FULL LIQUID DIET AND TOLERATING WELL. ATTENDS IN PLACE, PT INCONTINENT. DENIES PAIN AND NEEDS AT THIS TIME. WILL CONTINUE TO MONITOR AND REPORT OFF.
[2020-11-19 21:20] LABS: Hematocrit 26.4 % (33.0-51.0); Hemoglobin 8.6 g/dL (11.5-16.0)
[2020-11-20 04:30] LABS: BASOPHILS ABSOLUTE AUTO 0.03 K/mm3 (0.00-0.23); BASOPHILS PERCENT AUTO 0 % (0-2); EOSINOPHILS ABSOLUTE AUTO 0.15 K/mm3 (0.00-0.68); EOSINOPHILS PERCENT AUTO 2 % (0-6); Hemoglobin 7.9 g/dL (11.5-16.0); IMMATURE GRAN ABSOLUTE AUTO 0.05 K/mm3 (0.00-0.10); IMMATURE GRAN PERCENT AUTO 1 % (0-1); LYMPHOCYTES ABSOLUTE AUTO 2.63 K/mm3 (0.84-5.20); LYMPHOCYTES PERCENT AUTO 31 % (21-46); MONOCYTES ABSOLUTE AUTO 0.58 K/mm3 (0.16-1.47); MONOCYTES PERCENT AUTO 7 % (4-13); Mean Corpuscular HGB 30.2 pg (26.0-34.0); Mean Corpuscular HGB Conc 32.9 g/dL (31.5-36.5); Mean Corpuscular Volume 92 fL (80-100); Mean Platelet Volume 9.8 fL (9.1-12.4); NEUTROPHILS ABSOLUTE AUTO 5.09 K/mm3 (1.96-9.15); NEUTROPHILS PERCENT AUTO 60 % (41-73); Platelet Count 158 K/mm3 (150-400); RDW Coefficient Variation 15.7 % (11.7-14.2); RDW Standard Deviation 49.7 fL (35.1-46.3); Red Blood Cell Count 2.62 M/mm3 (3.80-5.20); White Blood Cell Count 8.53 K/mm3 (4.00-11.30)
[2020-11-20 04:49] LABS: Albumin, Blood 2.5 g/dL (3.4-5.0); Anion Gap 3 mmol/L (6-16); Blood Urea Nitrogen 43 mg/dL (8-24); Bun/Creatinine Ratio 41.3 (12.0-20.0); CO2, Blood 30 mmol/L (21-32); Calcium, Blood 8.7 mg/dL (8.5-10.1); Chloride, Blood 105 mmol/L (98-108); Creatinine, Blood 1.04 mg/dL (0.40-1.00); Glomerular Filtration Rate 51 (60-); Glucose, Blood 133 mg/dL (70-99); Potassium, Blood 4.6 mmol/L (3.5-5.5); Sodium, Blood 138 mmol/L (136-145)
--- NOTE | 2020-11-20 05:18 | NUR ---
SHIFT SUMMARY PT RESTING T/O MOST OF THE SHIFT, VSS OTHER THAN HR WHICH WAS JOY MOST OF THE SHIFT c THREE 3 SECOND PAUSES PER TELE REPORT, MD ORDERED TO DC TOPROL AND PATIENT WAS CHECKED ON MORE FREQUENTLY, BIOX IN PLACE, PT DENIES BEING LIGHTHEADED OR DIZZY c LOW HR, NO OTHER ACUTE EVENTS THIS SHIFT. CALL LIGHT IN REACH, WILL CTM AND REPORT TO ONCOMING DAY RN.
[2020-11-20 08:11] LABS: HBSAG SCREEN Negative (Negative); HEP A AB, IGM Negative (Negative); HEP B CORE AB, IGM Negative (Negative); HEP C VIRUS AB <0.1 (0.0-0.9)
--- NOTE | 2020-11-20 10:24 | NUR ---
PT ALERT AND ORIENTED X4. ON 1.5 L OXYMIZER, SATING ABOVE 94%. DENIES SOB. TELE SHOWING AFIB WITH HR 58-60'S. DENIES CHEST PAIN/PRESSURE. VITAL SIGNS STABLE. BOWEL TONES HEARD, DENIES NAUSEA/PAIN. TAKING PILLS HOLE WITH WATER, TOLERATING FULL LIQUID DIET. NO BOWEL MOVEMENTS THIS AM. ANTIBIOTICS INFUSED. TURNING NEEDED. PT DENIES NEEDS AT THIS TIME. TRANSFERING TO MEDICAL FLOOR. REPORTED OFF.
[2020-11-20 12:17] LABS: Hemoglobin 7.7 g/dL (11.5-16.0)
--- NOTE | 2020-11-20 17:34 | NUR ---
SUMMARY PT SITTING UP IN THE CHAIR AT THE BEDSIDE, PT TRANSFERRED UP FROM PCU THIS AFTERNOON, PT IS ALERT AND ORIENTED, PLEASANT AND COOPERATIVE WITH CARE, 1P ASSIST WITH THE FWW, PT DENIES ANY PAIN OR SOB, PT WORKED WITH PT/OT, PLAN IS TO RETURN TO [facility] TOMORROW, VSS, WILL CONT TO MONITOR
[2020-11-20 18:16] LABS: Hemoglobin 8.5 g/dL (11.5-16.0)
[2020-11-21 05:17] LABS: Hemoglobin 7.7 g/dL (11.5-16.0)
--- NOTE | 2020-11-21 05:48 | NUR ---
SHIFT SUMMARY A/OX3, PLEASANT AND COOPERATIVE WITH CARE. DENIES PAIN. CURRENTLY ON 2L WITH SATS GREATER THAN 92. TELE RUNNING AFIB AVG RATE IN THE 70S. VSS, NO ACUTE CHANGES AT THIS TIME. BED IN LOWEST POSITION WITH CALL LIGHT IN REACH. WILL CONTINUE TO MONITOR AND REPORT TO ONCOMING RN.
[2020-11-21 10:02] LABS: Hemoglobin 8.3 g/dL (11.5-16.0)
[2020-11-21] MEDS ORDERED: CIPR250 PO (14:12)
[2020-11-21] MEDS ORDERED: PANT40 PO (14:13)
--- NOTE | 2020-11-21 15:36 | NUR ---
DISCHARGE SUMMARY: PT A/O X 4 ON DC. ONE PERSON TX TO WC LEFT VIA [facility] The car easily beat. DISCHARGED TO [facility]. GAVE REPORT TO FRIEDA WILLS. PT EDUCATION COMPLETED PRIOR TO LEAVING. POWER GLIDE AND IV REMOVED FROM ESTEBAN/AC WITHOUT CONCERNS. ATTENDS CHANGED. PERSONAL BELONGINGS AND CELL PHONE/PONY ROLL FINISHER LEFT WITH PATIENT.
== END 2020-11-21 15:14 | DRG 378 ==
LOC: ER 17:29 → MEDS 18:48 → PCU 18:48 → MEDS 11-20 10:38
PROVIDERS: Emergency Medicine; Family Medicine; Nurse Practitioner Acute Care; Student in an Organized Health Care Education/Training Program; ADMIT Internal Medicine
PROC: 30233N1 Transfusion of Nonautologous Red Blood Cells into Peripheral Vein, Percutaneous Approach (ICD-10-PCS; principal; 2020-11-18)
PROC: 0W3P8ZZ Control Bleeding in Gastrointestinal Tract, Via Natural or Artificial Opening Endoscopic (ICD-10-PCS; 2020-11-19)
DX: K31.82 Dieulafoy lesion (hemorrhagic) of stomach and duodenum (principal); I50.22 Chronic systolic (congestive) heart failure; D62 Acute posthemorrhagic anemia; I13.0 Hypertensive heart and chronic kidney disease with heart failure and stage 1 through stage 4 chronic kidney disease, or unspecified chronic kidney disease; Z68.42 Body mass index [BMI] 45.0-49.9, adult; I25.10 Atherosclerotic heart disease of native coronary artery without angina pectoris; E78.5 Hyperlipidemia, unspecified; K75.81 Nonalcoholic steatohepatitis (NASH); G47.33 Obstructive sleep apnea (adult) (pediatric); F32.9 Major depressive disorder, single episode, unspecified; I25.5 Ischemic cardiomyopathy; D72.829 Elevated white blood cell count, unspecified; E66.01 Morbid (severe) obesity due to excess calories; K26.9 Duodenal ulcer, unspecified as acute or chronic, without hemorrhage or perforation; K44.9 Diaphragmatic hernia without obstruction or gangrene; E11.22 Type 2 diabetes mellitus with diabetic chronic kidney disease; K29.40 Chronic atrophic gastritis without bleeding; I35.1 Nonrheumatic aortic (valve) insufficiency; N18.30 Chronic kidney disease, stage 3 unspecified; I48.91 Unspecified atrial fibrillation; K74.60 Unspecified cirrhosis of liver; Z88.1 Allergy status to other antibiotic agents; Z88.2 Allergy status to sulfonamides; Z88.8 Allergy status to other drugs, medicaments and biological substances; Z90.49 Acquired absence of other specified parts of digestive tract; Z79.01 Long term (current) use of anticoagulants; Z79.4 Long term (current) use of insulin; Z79.899 Other long term (current) drug therapy; Z79.02 Long term (current) use of antithrombotics/antiplatelets; Z79.82 Long term (current) use of aspirin; Z87.440 Personal history of urinary (tract) infections; Z99.81 Dependence on supplemental oxygen
CPT/HCPCS: 36415; 36430; 71045; 80053; 80069; 80074; 82105; 82272; 82947; 84484; 85014; 85018; 85025; 85610; 85730; 86850; 86900; 86901; 86923; 93005; 93010; 96374; 97110; 97162; 97166; 97535; 99285-25; A9270; C1751; C9113; J0744; J2354; J7030; J7050; P9016; U0004

== ENCOUNTER 2021-02-26 09:57 | Emergency (ER) | payer OTHER ==
[~2021-02-26] VITALS: Ht 157.5 cm; Wt 106.6 kg
[~2021-02-26 09:57] MED LIST changes: +CIPR250 PO; +PANT40 PO
[2021-02-26 10:47] LABS: BASOPHILS ABSOLUTE AUTO 0.04 K/mm3 (0.00-0.23); BASOPHILS PERCENT AUTO 0 % (0-2); EOSINOPHILS ABSOLUTE AUTO 0.05 K/mm3 (0.00-0.68); EOSINOPHILS PERCENT AUTO 0 % (0-6); Hematocrit 44.3 % (33.0-51.0); Hemoglobin 14.1 g/dL (11.5-16.0); IMMATURE GRAN ABSOLUTE AUTO 0.03 K/mm3 (0.00-0.10); IMMATURE GRAN PERCENT AUTO 0 % (0-1); LYMPHOCYTES ABSOLUTE AUTO 2.27 K/mm3 (0.84-5.20); LYMPHOCYTES PERCENT AUTO 20 % (21-46); MONOCYTES ABSOLUTE AUTO 0.79 K/mm3 (0.16-1.47); MONOCYTES PERCENT AUTO 7 % (4-13); Mean Corpuscular HGB 27.5 pg (26.0-34.0); Mean Corpuscular HGB Conc 31.8 g/dL (31.5-36.5); Mean Corpuscular Volume 87 fL (80-100); Mean Platelet Volume 9.9 fL (9.1-12.4); NEUTROPHILS ABSOLUTE AUTO 8.35 K/mm3 (1.96-9.15); NEUTROPHILS PERCENT AUTO 72 % (41-73); Platelet Count 232 K/mm3 (150-400); RDW Standard Deviation 43.9 fL (35.1-46.3); Red Blood Cell Count 5.12 M/mm3 (3.80-5.20); White Blood Cell Count 11.53 K/mm3 (4.00-11.30)
[2021-02-26 11:17] LABS: Alanine Aminotransfer (ALT/SGP 18 U/L (12-78); Albumin, Blood 2.6 g/dL (3.4-5.0); Albumin/Globulin Ratio 0.7 (0.8-1.8); Alk Phos 75 U/L (50-136); Anion Gap 5 mmol/L (6-16); Aspartate Aminotrans (AST/SGOT 18 U/L (12-37); Bilirubin, Total 0.3 mg/dL (0.1-1.0); Blood Urea Nitrogen 19 mg/dL (8-24); Bun/Creatinine Ratio 22.4 (12.0-20.0); CO2, Blood 31 mmol/L (21-32); Calcium, Blood 9.8 mg/dL (8.5-10.1); Chloride, Blood 99 mmol/L (98-108); Creatinine, Blood 0.85 mg/dL (0.40-1.00); Globulin, Blood 3.6 g/dL (2.2-4.0); Glomerular Filtration Rate >60 (60-); Glucose, Blood 354 mg/dL (70-99); Potassium, Blood 4.1 mmol/L (3.5-5.5); Sodium, Blood 135 mmol/L (136-145); Thyroid Stimulating Hormone 0.858 uIU/mL (0.360-4.800); Total Protein, Blood 6.2 g/dL (6.4-8.2); Troponin I <0.015 ng/mL (0.000-0.040)
[2021-02-26 11:30] LABS: Source, Urine Voided
[2021-02-26 11:36] LABS: Appearance, Urine Hazy (Clear); Bilirubin, Urine Neg (Neg); Blood, Urine 2+ (Neg); Color, Urine Yellow (P-Yellow); Glucose Qualitative, Urine 4+ (Neg); Ketones, Urine Neg (Neg); Leukocyte Esterase, Urine 2+ (Neg); Nitrite, Urine Pos (Neg); Protein, Urine 3+ (Neg); Urobilinogen, Urine NORM (Normal)
[2021-02-26 11:38] LABS: SARS-Cov-2 (COVID-19) PCR, MMC NEGATIVE (NEGATIVE)
[2021-02-26 12:35] LABS: Bacteria Many /hpf; Squamous Epithelial Cells Many /hpf (Few); Transitional Epithelial Cells Few /hpf (0-Rare); White Blood Cells, Urine 50-100 /hpf (0-5)
[2021-02-26 12:37] LABS: Calcium Oxalate Crystals Rare /hpf
[2021-02-26] MEDS ORDERED: CEPH500 PO (13:52)
[2021-02-26] MEDS ORDERED: Macrobid 100 M100 MG PO (13:52)
== END 2021-02-26 16:28 | disposition home or self-care (01) ==
LOC: ER 09:57
PROVIDERS: Emergency Medicine
DX: N39.0 Urinary tract infection, site not specified (principal); Z20.822 Contact with and (suspected) exposure to COVID-19; E11.9 Type 2 diabetes mellitus without complications; I10 Essential (primary) hypertension; I48.91 Unspecified atrial fibrillation; Z88.2 Allergy status to sulfonamides; Z88.1 Allergy status to other antibiotic agents; Z79.899 Other long term (current) drug therapy
CPT/HCPCS: 71045; 72170; 80053; 81001; 84443; 84484; 85025; 87077; 87086; 87186; 96365; 99285-25; J0696; P9612; U0004

== ENCOUNTER 2021-03-07 14:30 | Emergency (ER) | payer OTHER ==
[~2021-03-07] VITALS: Ht 165.1 cm; Wt 136.1 kg
[~2021-03-07 14:30] MED LIST changes: +CEPH500 PO; +Macrobid 100 M100 MG PO
[2021-03-07 15:04] LABS: Source, Urine Catheter
[2021-03-07 15:08] LABS: Appearance, Urine Clear (Clear); Bilirubin, Urine Neg (Neg); Blood, Urine 1+ (Neg); Color, Urine Yellow (P-Yellow); Glucose Qualitative, Urine Neg (Neg); Ketones, Urine Neg (Neg); Leukocyte Esterase, Urine Neg (Neg); Nitrite, Urine Neg (Neg); Protein, Urine 3+ (Neg); Specific Gravity, Urine 1.015 (1.003-1.022); Urobilinogen, Urine NORM (Normal); pH, Urine 6.5 (5.0-8.0)
[2021-03-07 15:18] LABS: BASOPHILS ABSOLUTE AUTO 0.02 K/mm3 (0.00-0.23); BASOPHILS PERCENT AUTO 0 % (0-2); EOSINOPHILS ABSOLUTE AUTO 0.01 K/mm3 (0.00-0.68); EOSINOPHILS PERCENT AUTO 0 % (0-6); Hematocrit 46.4 % (33.0-51.0); IMMATURE GRAN ABSOLUTE AUTO 0.01 K/mm3 (0.00-0.10); IMMATURE GRAN PERCENT AUTO 0 % (0-1); LYMPHOCYTES ABSOLUTE AUTO 1.93 K/mm3 (0.84-5.20); LYMPHOCYTES PERCENT AUTO 25 % (21-46); MONOCYTES ABSOLUTE AUTO 0.49 K/mm3 (0.16-1.47); MONOCYTES PERCENT AUTO 6 % (4-13); Mean Corpuscular HGB 27.6 pg (26.0-34.0); Mean Corpuscular HGB Conc 32.3 g/dL (31.5-36.5); Mean Corpuscular Volume 85 fL (80-100); Mean Platelet Volume 9.5 fL (9.1-12.4); NEUTROPHILS ABSOLUTE AUTO 5.34 K/mm3 (1.96-9.15); NEUTROPHILS PERCENT AUTO 69 % (41-73); Platelet Count 187 K/mm3 (150-400); RDW Coefficient Variation 13.9 % (11.7-14.2); RDW Standard Deviation 42.8 fL (35.1-46.3); Red Blood Cell Count 5.44 M/mm3 (3.80-5.20)
[2021-03-07 15:45] LABS: Bacteria Rare /hpf; Squamous Epithelial Cells Few /hpf (Few); Transitional Epithelial Cells Few /hpf (0-Rare); White Blood Cells, Urine 0-2 /hpf (0-5)
[2021-03-07 15:53] LABS: Alanine Aminotransfer (ALT/SGP 27 U/L (12-78); Albumin, Blood 2.6 g/dL (3.4-5.0); Albumin/Globulin Ratio 0.7 (0.8-1.8); Alk Phos 96 U/L (50-136); Anion Gap 4 mmol/L (6-16); Aspartate Aminotrans (AST/SGOT 26 U/L (12-37); Bilirubin, Total 0.3 mg/dL (0.1-1.0); Blood Urea Nitrogen 20 mg/dL (8-24); Bun/Creatinine Ratio 22.5 (12.0-20.0); C-REACTIVE PROTEIN, EXT RANGE 0.899 mg/dL (0.000-0.300); CO2, Blood 31 mmol/L (21-32); Calcium, Blood 9.3 mg/dL (8.5-10.1); Chloride, Blood 99 mmol/L (98-108); Creatinine, Blood 0.89 mg/dL (0.40-1.00); Globulin, Blood 3.8 g/dL (2.2-4.0); Glomerular Filtration Rate >60 (60-); Glucose, Blood 190 mg/dL (70-99); Potassium, Blood 4.4 mmol/L (3.5-5.5); Sodium, Blood 134 mmol/L (136-145); Total Protein, Blood 6.4 g/dL (6.4-8.2); Troponin I <0.015 ng/mL (0.000-0.040)
[2021-03-07] MEDS ORDERED: NYSTATIN15 GM TOP (16:27)
== END 2021-03-07 18:03 | disposition home or self-care (01) ==
LOC: ER 14:30
PROVIDERS: Emergency Medicine
DX: M79.3 Panniculitis, unspecified (principal); B37.9 Candidiasis, unspecified; E11.9 Type 2 diabetes mellitus without complications; I10 Essential (primary) hypertension; Z88.2 Allergy status to sulfonamides; Z88.8 Allergy status to other drugs, medicaments and biological substances; Z79.899 Other long term (current) drug therapy
CPT/HCPCS: 36415; 70450; 80053; 81001; 84443; 84484; 85025; 86140; 93005; 93010; 99285-25; A9270; P9612

== ENCOUNTER → 2021-03-30 | Outpatient (CLI) | payer OTHER ==
[~2021-03-30] MED LIST changes: +ASPIR 8181 M1 PO; +BYDUREON B2 MG/0.81; +FERSU300 PO; +FUROSEMIDE20 MG PO; +NYSTATIN15 GM TOP; +NYSTOP15 GM TOP; +PLAVIX75 MG PO; +Potassium Chlo20 ME1 PO; +TRULICITY0.75 MG/01 SC; +Zofran4 MG PO
[2021-03-30 17:35] LABS: Appearance, Urine Clear (Clear); Bilirubin, Urine Neg (Neg); Blood, Urine 1+ (Neg); Color, Urine Yellow (P-Yellow); Glucose Qualitative, Urine Neg (Neg); Ketones, Urine Neg (Neg); Leukocyte Esterase, Urine 2+ (Neg); Nitrite, Urine Neg (Neg); Protein, Urine 3+ (Neg); Urobilinogen, Urine NORM (Normal)
[2021-03-30 17:45] LABS: Bacteria Mod /hpf; Calcium Oxalate Crystals Rare /hpf; Red Blood Cells, Urine 0-2 /hpf (0-2); Squamous Epithelial Cells Mod /hpf (Few); Transitional Epithelial Cells Few /hpf (0-Rare)
== END | disposition home or self-care (01) ==
LOC: LAB 16:33 → LAB SHORT 16:33
PROVIDERS: Family Medicine
DX: N39.0 Urinary tract infection, site not specified (principal)
CPT/HCPCS: 81001; 87077; 87086; 87186

== ENCOUNTER 2021-04-04 23:37 | Emergency (ER) | payer OTHER ==
[~2021-04-04] VITALS: Ht 165.1 cm; Wt 104.3 kg
[~2021-04-04 23:37] MED LIST changes: -ASPIR 8181 M1 PO; -BYDUREON B2 MG/0.81; -FERSU300 PO; -FUROSEMIDE20 MG PO; -NYSTOP15 GM TOP; -PLAVIX75 MG PO; -Potassium Chlo20 ME1 PO; -TRULICITY0.75 MG/01 SC; -Zofran4 MG PO
[2021-04-05] MEDS ORDERED: FEBU40TA (02:38)
[2021-04-05] MEDS ORDERED: BYDUREON B2 MG/0.81 ×2 (02:38)
[2021-04-05] MEDS ORDERED: CLOP75 PO (02:38)
[2021-04-05] MEDS ORDERED: FERSU300 PO (02:39)
[2021-04-05] MEDS ORDERED: METO50 PO (02:41)
[2021-04-05] MEDS ORDERED: NITR100CA PO (02:42)
== END 2021-04-05 02:40 | disposition home or self-care (01) ==
LOC: ER 23:37
DX: S09.90XA Unspecified injury of head, initial encounter (principal); E11.9 Type 2 diabetes mellitus without complications; I10 Essential (primary) hypertension; I48.91 Unspecified atrial fibrillation; Z88.2 Allergy status to sulfonamides; Z88.1 Allergy status to other antibiotic agents; Z88.8 Allergy status to other drugs, medicaments and biological substances; Z79.82 Long term (current) use of aspirin; Z79.4 Long term (current) use of insulin; Z79.899 Other long term (current) drug therapy; W19.XXXA Unspecified fall, initial encounter
CPT/HCPCS: 70450; 99284-25

== ENCOUNTER 2021-05-23 06:29 | Emergency (ER) | payer OTHER ==
[~2021-05-23] VITALS: Ht 162.6 cm; Wt 108.9 kg
[~2021-05-23 06:29] MED LIST changes: +BYDUREON B2 MG/0.81; +FERSU300 PO
[2021-05-23] MEDS ORDERED: TRULICITY0.75 MG/01 SC ×2 (07:11→07:19)
[2021-05-23] MEDS ORDERED: NYSTOP15 GM TOP (07:12)
[2021-05-23] MEDS ORDERED: Prozac20 MG PO (07:15)
[2021-05-23] MEDS ORDERED: METO50 PO (07:15)
[2021-05-23] MEDS ORDERED: PLAVIX75 MG PO (07:16)
[2021-05-23] MEDS ORDERED: LOVASTATIN40 MG PO (07:16)
[2021-05-23] MEDS ORDERED: FUROSEMIDE20 MG PO (07:16)
[2021-05-23] MEDS ORDERED: LISI5 PO (07:17)
[2021-05-23] MEDS ORDERED: Potassium Chlo20 ME1 PO (07:17)
[2021-05-23] MEDS ORDERED: Zofran4 MG PO (07:17)
[2021-05-23] MEDS ORDERED: FEBUXOSTAT40 MG PO (07:18)
[2021-05-23] MEDS ORDERED: TRESIBA FL100 UNIT/2 SC (07:19)
[2021-05-23] MEDS ORDERED: VISBIOME 112.51 EACH PO (07:19)
[2021-05-23] MEDS ORDERED: ASPIR 8181 M1 PO (07:20)
[2021-05-23] MEDS ORDERED: FERSU300 PO (07:20)
== END 2021-05-23 10:18 | disposition home or self-care (01) ==
LOC: ER 06:29
DX: S00.83XA Contusion of other part of head, initial encounter (principal); S80.02XA Contusion of left knee, initial encounter; E11.9 Type 2 diabetes mellitus without complications; I10 Essential (primary) hypertension; I48.91 Unspecified atrial fibrillation; Z88.2 Allergy status to sulfonamides; Z87.891 Personal history of nicotine dependence; Z88.8 Allergy status to other drugs, medicaments and biological substances; Z88.1 Allergy status to other antibiotic agents; Z79.899 Other long term (current) drug therapy; Z79.82 Long term (current) use of aspirin; Z79.4 Long term (current) use of insulin; W06.XXXA Fall from bed, initial encounter
CPT/HCPCS: 70450; 70480; 73562-LT; 99284-25; A9270

== ENCOUNTER 2022-01-10 09:05 | Inpatient (IN) | payer MEDICARE, OTHER ==
[~2022-01-10] VITALS: Ht 167.6 cm; Wt 123.0 kg
[~2022-01-10 09:05] MED LIST changes: +ASPIR 8181 M1 PO; +FUROSEMIDE20 MG PO; +NYSTOP15 GM TOP; +PLAVIX75 MG PO; +Potassium Chlo20 ME1 PO; +TRULICITY0.75 MG/01 SC; +Zofran4 MG PO
[2022-01-10] MEDS ORDERED: DOC250 PO (09:22)
[2022-01-10] MEDS ORDERED: CATAPRES0.3 MG PO (09:22)
[2022-01-10] MEDS ORDERED: LOSA50 PO (09:23)
[2022-01-10] MEDS ORDERED: INSULANI SC (09:24)
[2022-01-10] MEDS ORDERED: THERA-D2000 UNIT PO (09:25)
[2022-01-10] MEDS ORDERED: METO10SY PO (09:26)
[2022-01-10 09:53] LABS: BASOPHILS ABSOLUTE AUTO 0.06 K/mm3 (0.00-0.23); BASOPHILS PERCENT AUTO 1 % (0-2); EOSINOPHILS ABSOLUTE AUTO 0.07 K/mm3 (0.00-0.68); EOSINOPHILS PERCENT AUTO 1 % (0-6); Hematocrit 40.9 % (33.0-51.0); Hemoglobin 13.6 g/dL (11.5-16.0); IMMATURE GRAN ABSOLUTE AUTO 0.05 K/mm3 (0.00-0.10); IMMATURE GRAN PERCENT AUTO 0 % (0-1); LYMPHOCYTES ABSOLUTE AUTO 3.02 K/mm3 (0.84-5.20); LYMPHOCYTES PERCENT AUTO 25 % (21-46); MONOCYTES ABSOLUTE AUTO 0.69 K/mm3 (0.16-1.47); MONOCYTES PERCENT AUTO 6 % (4-13); Mean Corpuscular HGB 30.3 pg (26.0-34.0); Mean Corpuscular HGB Conc 33.3 g/dL (31.5-36.5); Mean Corpuscular Volume 91 fL (80-100); Mean Platelet Volume 8.9 fL (9.1-12.4); NEUTROPHILS ABSOLUTE AUTO 8.28 K/mm3 (1.96-9.15); NEUTROPHILS PERCENT AUTO 68 % (41-73); Platelet Count 203 K/mm3 (150-400); RDW Coefficient Variation 12.6 % (11.7-14.2); RDW Standard Deviation 41.7 fL (35.1-46.3); Red Blood Cell Count 4.49 M/mm3 (3.80-5.20); White Blood Cell Count 12.17 K/mm3 (4.00-11.30)
[2022-01-10 10:01] LABS: Albumin, Blood 3.3 g/dL (3.4-5.0); Bilirubin, Total 0.5 mg/dL (0.1-1.0); Bun/Creatinine Ratio 24.8 (12.0-20.0); Calcium, Blood 9.7 mg/dL (8.5-10.1); Creatinine, Blood 1.05 mg/dL (0.40-1.00); Globulin, Blood 3.4 g/dL (2.2-4.0); Potassium, Blood 4.6 mmol/L (3.5-5.5); Total Protein, Blood 6.7 g/dL (6.4-8.2)
[2022-01-10 12:29] LABS: Anti-Xa UFH, PHA Monitoring <0.10 IU/mL; International Normalized Ratio 1.04; Prothrombin Time Results 10.9 Sec (9.7-11.5)
--- NOTE | 2022-01-10 18:35 | NUR ---
SHIFT SUMMARY PT ARRIVED TO UNIT AT 1355. PT ON RA UPON ARRIVAL AND WITHOUT SHEST PAIN/PRESSURE. ER NURSE REPORTED ELEVATED BP'S WHILE IN ER,STABLE BP UPON ARRIVAL TO PCU. ROCK WOOL APPLICATOR CONSULTED, PLAN IS FOR ANGIO IN THE MORNING, NPO AFTER MIDNIGHT. OTHER VSS SINCE ARIVAL TO UNIT. PT AND PT DAUGHTER SEEN BY ROCK WOOL APPLICATOR AND INFORMED OF PROCEDURE. TROPONINS TRENDING UP, SEE LABS. PT HAD EPISODE OF N/V, TREATED PER EMAR.
[2022-01-11 03:57] LABS: BASOPHILS ABSOLUTE AUTO 0.06 K/mm3 (0.00-0.23); BASOPHILS PERCENT AUTO 1 % (0-2); EOSINOPHILS ABSOLUTE AUTO 0.12 K/mm3 (0.00-0.68); EOSINOPHILS PERCENT AUTO 1 % (0-6); Hematocrit 38.4 % (33.0-51.0); Hemoglobin 12.7 g/dL (11.5-16.0); IMMATURE GRAN ABSOLUTE AUTO 0.04 K/mm3 (0.00-0.10); IMMATURE GRAN PERCENT AUTO 0 % (0-1); LYMPHOCYTES ABSOLUTE AUTO 4.46 K/mm3 (0.84-5.20); LYMPHOCYTES PERCENT AUTO 37 % (21-46); MONOCYTES ABSOLUTE AUTO 0.95 K/mm3 (0.16-1.47); MONOCYTES PERCENT AUTO 8 % (4-13); Mean Corpuscular HGB 30.2 pg (26.0-34.0); Mean Corpuscular HGB Conc 33.1 g/dL (31.5-36.5); Mean Corpuscular Volume 91 fL (80-100); Mean Platelet Volume 8.9 fL (9.1-12.4); NEUTROPHILS ABSOLUTE AUTO 6.46 K/mm3 (1.96-9.15); NEUTROPHILS PERCENT AUTO 53 % (41-73); Platelet Count 209 K/mm3 (150-400); RDW Coefficient Variation 12.9 % (11.7-14.2); White Blood Cell Count 12.09 K/mm3 (4.00-11.30)
[2022-01-11 04:27] LABS: Bun/Creatinine Ratio 23.9 (12.0-20.0); Calcium, Blood 9.5 mg/dL (8.5-10.1); Creatinine, Blood 1.09 mg/dL (0.40-1.00); Potassium, Blood 4.1 mmol/L (3.5-5.5)
--- NOTE | 2022-01-11 06:07 | NUR ---
SHIFT SUMMARY PATIENT RESTING THROUGHOUT NIGHT. ALERT AND ORIENTED X4. FOLLOWS ALL COMMANDS. RA AT BASELINE MAINTAINING SATURATIONS. HR 60'S SINUS RHYTHM WITH BBB AND 1ST DEGREE HB. BP STABLE BUT RISING. NO COMPLAINTS OF SOB OR CHEST PAIN. ON HEPARIN GTT AT 15. THERAPEUTIC ALL SHIFT. INCONINENT IN BRIEF X3 OVERNIGHT. LARGE AMOUNT OF URINE. NO BM. PLAN TO GO FOR PROCEDURE AT O800.
--- NOTE | 2022-01-11 09:30 | NUR ---
PATIENT UPDATE PATIENT RETURNED FROM [facility] LEAD ADS MARKETING AT 0915. RT RADIAL SITE USED FOR ANGIO. ARM BOARD IN PLACE. TR BAND IN PLACE WITH 10 CC OF AIR PLACED AT 0911. ARTERIES REPORTED TO BE CLEAR WITH NO INTERVENTIONS DONE DURING ANGIO. RIGHT RADIAL SITE SHOWS NO SIGNS OF BLEEDING/DISCOLORATION; SITE SOFT AND NONTENDER. PULSES STRONG. PULSE O2 MONITOR IN RIGHT HAND SHOWS O2 OF 94% CURRENTLY. FINGERS WARM AND PATIENT STATES SHE CAN FEEL SENSATION IN HANDS AND MOVES FINGERS WITH DIRECTION. PATIENT CURRENTLY EATING BREAKFAST. EDUCATION ON KEEPING WRIST STRAIGHT AND ARM BOARD IN PLACE. VITALS BEING DONE EVERY 15 MINUTES CURRENTLY. VITALS STABLE. BED IN LOWEST POSITION AND CALL LIGHT WITHIN REACH.
--- NOTE | 2022-01-11 12:18 | NUR ---
POST ANGIO PT RETURNED AWAKE AND TALKATIVE, SHORTLY AFTER RETURN PT DROWSY, SHE WAS DIFFICULT BUT NOT IMPOSSIBLE ARROUSE. PT NOTED TO BRADYCARDIC WITH HR DROPPING TO 39 WITH AN AVERAGE IN THE MID 40s, SOFT PRESSURES NOTED. REPEAT EKG PERFORMED AND EVP GENERAL COUNSEL WAS CONTACTED. V/O OBTAINED FOR ATROPINE POST EKG IF BRADYCARDIA CONTINUES. ATROPINE WAS ADMINISTERED FOR CONTINUED CARDYCARDIA. HR DID IMPROVE TO MID 50s POST ATROPINE, MENTATION DID NOT IMPROVE. PT REMAINED DROWSY FOR APPROX 1 HOUR, THEN AWOKE WAS TALKING WITH STAFF, EATING LUNCH TRAY. NO NAUSEA NOTED WITH LUNCH TRAY. DR ENCINAS HAS BEEN IN TO REASSESS AND UPDATE FAMILY. ADDITIONAL EKG PERFORMED POST ATROPINE, EKG TO DR ENCINAS
--- NOTE | 2022-01-11 16:05 | NUR ---
Pt is known to this sql report writer from previous hospital visit. Pt resting in bed with her eyes closed. Pt opens her eyes to gentle verbal stimuli and states being tired. Pt's daugter Fabby at bedside. Supportive conversation today and listened as Fabby reviews plan of care for Pt. Continued therapeutic listening and validated concerns. Fabby reports Pt now lives at [facility] and for the most part is happy with the care Pt receives. Gentle education on advanced care planning. Educated on disease process including trajectory. Discussed the importance of routine conversation with PCP and developing multiple plans as disease progresses. Daughter Fabby expresses appreciation and reports no other concerns at this time. Palliative Care will remain available.
--- NOTE | 2022-01-11 17:27 | NUR ---
SHIFT SUMMARY PATIENT IS A&O X3-4 DURING THIS SHIFT. CALM AND COOPERATIVE WITH CARE. OCCASIONAL MOMENTS OF IRRITATION OF CARE PROVIDED, BUT MOSTLY PLEASANT. PATIENT DENIES PAIN. INCONTINENT/CONTINENT WITH ATTENDS IN PLACE. PATIENT ON TELE SHOWING SB/SR WITH 1 DEGREE HB AND BBB. PATIENT WAS PREVIOUSLY SYMPTOMATIC WITH BRADYCARDIA EARLIER IN THE SHIFT WITH HR 40-50S. PATIENT NO LONGER HAS SIGNS OF DISTRESS. CURRENT HR 50-60S. PATIENT WENT FOR AN ANGIO EARLIER THIS SHIFT WITH NO NEEDED INTERVENTIONS DUE TO CLEAR ARTERIES REPORTED BY THE ASSISTANT PROFESSOR OF NURSING TEAM. PATIENT DENIES CP. RIGHT RADIAL SITE FULLY RECOVERED WITH TEGADERM DRESSING AND ARM BOARD IN PLACE. NO SIGNS OF BLEEDING/TENDERNESS/DISCOLORATION/SWELLING. PATIENT IS CURRENTLY EATING DINNER. 1L O2 VIA NC USED FOR WHEN THE PATIENT IS SLEEPING SHE WAS TOLD SHE HAS SLEEP APNEA BUT DOES NOT WEAR A CPAP AT HOME. BED IN LOWEST POSITION AND CALL LIGHT WITHIN REACH. WILL CONTINUE TO MONITOR UNTIL SHIFT CHANGE AT 1900.
[2022-01-12 04:26] LABS: Hematocrit 36.1 % (33.0-51.0); Hemoglobin 11.9 g/dL (11.5-16.0); Mean Corpuscular HGB 30.5 pg (26.0-34.0); Mean Corpuscular Volume 93 fL (80-100); Mean Platelet Volume 8.8 fL (9.1-12.4); Platelet Count 192 K/mm3 (150-400); RDW Coefficient Variation 12.9 % (11.7-14.2); RDW Standard Deviation 43.8 fL (35.1-46.3); White Blood Cell Count 9.91 K/mm3 (4.00-11.30)
[2022-01-12 04:53] LABS: Albumin, Blood 2.9 g/dL (3.4-5.0); Anion Gap 6 mmol/L (6-16); Blood Urea Nitrogen 28 mg/dL (8-24); Bun/Creatinine Ratio 23.1 (12.0-20.0); CHOL/HDL RATIO 3.3; CO2, Blood 29 mmol/L (21-32); Calcium, Blood 9.7 mg/dL (8.5-10.1); Chloride, Blood 103 mmol/L (98-108); Cholesterol 128 mg/dL (50-200); Creatinine, Blood 1.21 mg/dL (0.40-1.00); Glomerular Filtration Rate 46 (60-); Glucose, Blood 92 mg/dL (70-99); HDL Cholesterol 39 mg/dL (>39); LDL/HDL RATIO 1.3; Low Density Lipoprotein Chol 49 mg/dL (0-110); Phosphorus, Blood 3.8 mg/dL (2.5-4.9); Sodium, Blood 138 mmol/L (136-145); Triglycerides 199 mg/dL (30-160); Very Low Density Lipoprot Chol 39 mg/dL (6-32)
--- NOTE | 2022-01-12 05:46 | NUR ---
FIBER DESIGN ENGINEER SUMMARY PT IS ALERT AND ORIENTED COMMUNICATING APPROPRIATELY W STAFF THIS SHIFT. PT HAS DENIED ANY CP OR PRESSURE THIS SHIFT. TELE SHOWING SB 43-55 W 1ST DEGREE HB AND INVERTED T WAVES. BP WNL AND STABLE. O2 SATS >92% ON RM AIR. PT WAS ABLE TO SLEEP COMFORTABLY FOR THE MAJORITY OF THE NIGHT. R RADIAL SITE SHOWS NO S/S OF BLEEDING OR HEMATOMA. WILL REPORT TO ONCOMING RN.
--- NOTE | 2022-01-12 09:00 | NUR ---
ASSUMPTION OF CARE THIS RN AND IVELISSE WILLS ASSUMED CARE OF PATIENT AT 0700. REPORT TAKEN FROM MAAME WILLS. PATIENT REMAINS IN A 1ST DEGREE HEART BLOCK WITH HR RANGING FROM 40-60. BP STABLE AT THIS TIME. AFEBRILE. PATIENT DENIES PAIN. RIGHT RADIAL SITE WITH BANDAGE AND ARM BOARD IN PLACE. NO SIGNS OF BLEEDING/DISCOLORATION/SWELLING. PATIENT PLACED ON BED VALENCIA WITH PATIENT UNABLE TO HAVE BM. INCONTINENT OF URINE IN ATTENDS. PATIENT WAS ABLE TO EAT BREAKFAST WITH NO EMESIS. BED IN LOWEST POSITION AND CALL LIGHT WITHIN REACH.
--- NOTE | 2022-01-12 10:49 | NUR ---
PT'S HR HAS RANGED FROM 48-62 T/O THIS SHIFT. DR ENCINAS WAS IN TO ASSESS PT THIS AM, HE PROVIDED NEW DOSING PARAMETERS TO HOLD FOR HR LESS THAN 50bpm FOR COREG. PT'S HR RANGED FROM 58-62 UPON ADMINISTRATION. PT REMAINS ON TELEMETRY, WILL CONTINUE TO MONITOR FOR RATE CHANGES.
--- NOTE | 2022-01-12 10:57 | NUR ---
PATIENT UPDATE PER MD NICOLE, MIRALAX ORDERED AND ADMINISTERED DUE TO CONSTIPATION AND REPORTING NOT HAVING A BOWEL MOVEMENT FOR MORE THAN 3 DAYS. PREVIOUSLY THIS RN HELD BP MEDICATIONS DUE TO PATIENT'S HEART RATE FLUCTUATING FROM 40-60; MD NICOLE WAS IN AGREEMENT WITH THIS PLAN. MD ENCINAS TO BEDSIDE AROUND 1000 THIS AM WITH ORDERS TO GIVE THE MEDICATIONS. VERBAL ORDER PROVIDED TO CHANGE THE PARAMATERS OF THE CARVEDILOL UNLESS HR IS BELOW 50. PHARMACY NOTIFIED AND PARAMATERS CHANGED. PATIENT'S HR SUSTAINING 58-62 DURING TIME OF ADMINISTRATION. TELEMETRY NOTIFIED TO REPORT BRADYCARDIA AND HR SUSTAINING LOWER THAN CURRENT AVERAGE. PATIENT CURRENTLY ALERT AND ORIENTED WITH NO SIGNS AND/OR SYMPTOMS SUCH LETHARGY, DIAPHORESIS, COLD/CLAMMY SKIN. THIS RN WILL CONTINUE TO DO FREQUENT ROUNDS ON PATIENT TO MONITOR FOR CHANGES. PATIENT UP IN BED WITH TV ON, BED IN LOWEST POSITION AND CALL LIGHT WITHIN REACH.
--- NOTE | 2022-01-12 16:32 | NUR ---
SHIFT SUMMARY NO ACUTE EVENTS DURING THIS SHIFT. PATIENT REMAINS IN A 1ST DEGREE HB WITH HR MAINTAINING IN THE 50-60s. OTHER VITALS STABLE. PATIENT'S HR OCCASIONALLY DROPS TO THE 40s BUT PATIENT SHOWS NO SIGNS OF SYMPTOMS/DISTRESS. DENIES CHEST PAIN AND SOB. PATIENT WORKED WITH PHYSICAL THERAPY THIS AFTERNOON AND APPEARS TO BE AT BASELINE FOR TRANSFERS. WALKER AND GAIT BELT USED WITH 1 PERSON TO STAND. PATIENT DENIES PAIN. MEDICATING PER EMAR. RIGHT RADIAL SITE FULLY RECOVERED WITH NO COMPLICATIONS. TEGADERM BANDAGE IN PLACE FOR PUNCTURE SITE. MD ENCINAS TO BEDSIDE THIS AM WITH VERBAL ORDER TO REMOVE ARMBOARD FROM RIGHT WRIST. PATIENT HAS BEEN CALM AND COOPERATIVE WITH CARE. CONTINUES TO BE INCONTINENT. BED IN LOWEST POSITION WITH CALL LIGHT WITHIN REACH. THIS RN WILL CONTINUE TO MONITOR PATIENT UNTIL SHIFT CHANGE AT 1900.
[2022-01-13 04:41] LABS: Bun/Creatinine Ratio 22.4 (12.0-20.0); Calcium, Blood 9.8 mg/dL (8.5-10.1); Creatinine, Blood 1.16 mg/dL (0.40-1.00); Potassium, Blood 3.9 mmol/L (3.5-5.5)
--- NOTE | 2022-01-13 06:39 | NUR ---
Shift summary Assumed care at 1900. Pt in bed, alert and oriented, on room air. PG in RANDY, IV in R/forearm. No acute events overnight, VS stable. Pt up to commode with two person assist. See shift assessment for further details. Will continue to monitor and report off to dayshift RN.
--- NOTE | 2022-01-13 09:38 | NUR ---
TRANSFER: PT HAS RECEIVED NEW ROOM ASSIGNMENT IN MEDICAL DEPT. REPORT HAS BEEN GIVEN TO RECEIVING RN, PT HAS BEEN TRANSFERED TO NEW ROOM.
--- NOTE | 2022-01-13 16:59 | NUR ---
SHIFT SUMMARY PATIENT TRANSFERED FROM PCU AT 0930. PATIENT SETTLED INTO ROOM. PATIENT ORIENTED TO CALL LIGHT AND TV CONTROL. PATIENT DENIES PAIN, NAUSEA, AND SHORTNESS OF BREATH. PATIENT IS A 2P FOR TRANSFERS. PATIENT USES [facility]. RECOMMENDATION IS SNF. PATIENT IS AGREEABLE. PATIENT DAUGHTER VISITED. GAVE UPDATE. PATIENT IS EATING AND DRINKING WELL. PATIENT IS PLEASANT AND COOPERATIVE WITH CARE.
[2022-01-14 06:34] LABS: Bun/Creatinine Ratio 21.4 (12.0-20.0); Calcium, Blood 9.8 mg/dL (8.5-10.1); Creatinine, Blood 1.03 mg/dL (0.40-1.00); Potassium, Blood 3.8 mmol/L (3.5-5.5)
--- NOTE | 2022-01-14 07:31 | NUR ---
NOC SHIFT SUMMARY PT SLEPT THROUGHOUT ENTIRE SHIFT. ADMITTED FOR NSTEMI; PCI WITH NO FINDINGS. NO ISSUES OVERNIGHT
--- NOTE | 2022-01-14 16:55 | NUR ---
SHIFT SUMMARY PATIENT DENIES PAIN, NAUSEA, AND SHORTNESS OF BREATH. PATIENT IS A 2P WITH A FWW AND GAIT BELT FOR TRANSERS. PATIENT WORKED WITH PT TODAY. RECOMMENDATION IS SNF. PATIENT IS AGREEABLE. DRILL BIT SHARPENER AWARE. DR. ENCINAS MET WITH PATIENT THIS AFTERNOON, SEE NOTES. PATIENT DAUGHTER VISITED THIS MORNING, UPDATED HER WITH CONSENT OF PATIENT. PATIENT IS EATING AND DRINKING WELL. PATIENT IS PLEASANT AND COOPERATIVE WITH CARE.
[2022-01-15 06:08] LABS: Bun/Creatinine Ratio 21.8 (12.0-20.0); Calcium, Blood 10.3 mg/dL (8.5-10.1); Creatinine, Blood 1.1 mg/dL (0.40-1.00); Potassium, Blood 3.8 mmol/L (3.5-5.5)
--- NOTE | 2022-01-15 07:35 | NUR ---
NOC SHIFT SUMMARY NO ISSUES NOTED OVERNIGHT.
--- NOTE | 2022-01-15 17:47 | NUR ---
SHIFT SUMMARY PATIENT DENIES PAIN, NAUSEA, AND SHORTNESS OF BREATH. PATIENT IS A 1P WITH A FWW. PATIENT WORKED WITH PT AND OT. RECOMMENDATION IS SNF. PATIENT STRENGTH IMPROVED TODAY. PATIENT UP TO CHAIR FOR MEALS TODAY. PATIENT ATTEMPTED SHOWER, BUT TOO TIRED, ENDED UP DECIDING ON TOMORROW. PATIENT IS EATING AND DRINKING WELL. PATIENT IS VERY PLEASANT AND COOPERATIVE WITH CARE. PATIENT HAS BEEN ACCEPTED TO [facility] FOR SNF, AWAITING INSURANCE AUTHORIZATION.
--- NOTE | 2022-01-16 06:29 | NUR ---
SHIFT SUMMARY: PT IS ALERT AND ORIENTED. PT IS CALM AND COOPERATIVE WITH CARE. PT CALLS APPROPRIATELY. PT IS A ONE ASSIST TO THE BSC. PT INCONTINENT OF BLADDER, CHANGED AND CLEANED NEEDED. PT NOT UP OUT OF BED OVERNIGHT. PT DENIES PAIN, NAUSEA, VOMITING, AND SOB. PT SLEPT MUCH OF THE NIGHT WHEN NOT DISTURBED. NO ACUTE CHANGES OR COMPLICATIONS THIS SHIFT. BED IN LOW POSITION, CALL LIGHT WITHIN REACH. WILL REPORT TO DAY NURSE.
--- NOTE | 2022-01-16 17:56 | NUR ---
SHIFT SUMMARY: PT A&O, AND RESTING IN BED AT THE BEGINNING OF THE SHIFT. PT TRANSFERRED INTO CHAIR FOR BREAKFAST WITH 1 PERSON ASSIST WITH FWW AND GAIT BELT. PT WORKED WITH PT AND WALKED IN THE ROOM AND HALLWAY WITH SBA WITH FWW AND GAIT BELT. PT WORKED WITH OT TODAY. PT TRANSFERRED OUT OF BED FOR LUNCH WITH FWW AND GAIT BELT SBA. PT WAS INCONTIENT AND CONTIENT THROUGHOUT SHIFT. PT OFFERED A SHOWER AND DENIED BUT AGREED TO A BEDBATH. PT WAS SEEN BY DR. GONZALEZ, PT WAS DISCHARGED OFF OF TELE MONITORING. PT HAS NO NEW ORDERS AT THIS TIME. PT IS UP IN HER CHAIR EATING DINNER WITH CALL LIGHT WITHIN REACH.
--- NOTE | 2022-01-17 05:29 | NUR ---
PT IS A/OX4, PLEASANT AND COOPERATIVE. THE PT IS UP WITH ASSIST. THE PT APPEARS TO BE BREATHING EASILY AT REST. THE PT DENIED ANY CHEST PAIN OR ANY OTHER PAIN T/O THE SHIFT. THE PT SLEPT WELL FOR MOST OF THE NIGHT. CALL LIGHT IN REACH. WILL CONTINUE TO MONITOR AND ASSESS FOR CHANGES
[2022-01-17 10:03] LABS: SARS-Cov-2 (COVID-19) PCR, MMC NEGATIVE (NEGATIVE)
[2022-01-17] MEDS ORDERED: AMLO5 PO (11:18)
[2022-01-17] MEDS ORDERED: ELIQUIS5 M2 PO (11:18)
[2022-01-17] MEDS ORDERED: CARV3.125 PO (11:18)
[2022-01-17] MEDS ORDERED: HYDRA50 PO (11:19)
[2022-01-17] MEDS ORDERED: JARDIANCE25 MG PO (11:19)
[2022-01-17] MEDS ORDERED: INSULIN LI100 UNIT/6 SC (11:20)
[2022-01-17] MEDS ORDERED: PANT40 PO (11:20)
[2022-01-17] MEDS ORDERED: SPIR25 PO (11:21)
[2022-01-17] MEDS ORDERED: MIRALAX17 GM PO (11:21)
[2022-01-17] MEDS ORDERED: ENTRESTO 49 MG1 EACH PO (11:21)
--- NOTE | 2022-01-17 14:03 | NUR ---
PT TO DISCHARGE TO [facility]- CALLED REPORT TO [facility] NURSING STAFF. GAVE TELEPHONE REPORT, THEY ARE AWARE THE PT IS DUE TO BE PICKED UP FROM THE HOSPITAL AT 1500. NO FURTHER QUESTIONS AT THIS TIME. THEY HAVE CONTACT INFO TO CALL WITH QUESTIONS.
--- NOTE | 2022-01-17 15:06 | NUR ---
DISCHARGE NOTE- PT WAS TAKEN VIA WC TRANSPORT TO [facility], TELEPHONE REPORT COMPLETED WITH STAFF THEIR EARLIER THIS SHIFT. PG DC'D PRIOR TO PT DISCHARGE. NO S&S OF DISTRESS NOTED AT THE TIME OF DISCHARGE.
== END 2022-01-17 14:55 | DRG 280 ==
LOC: ER 09:05 → PCU 12:07 → MEDS 12:07 → PCU 13:57 → MEDS 01-13 09:28
PROVIDERS: Internal Medicine; Internal Medicine Cardiovascular Disease; Nurse Practitioner Acute Care; Student in an Organized Health Care Education/Training Program; ADMIT Hospitalist
PROC: 4A023N7 Measurement of Cardiac Sampling and Pressure, Left Heart, Percutaneous Approach (ICD-10-PCS; principal; 2022-01-11)
PROC: B2111ZZ Fluoroscopy of Multiple Coronary Arteries using Low Osmolar Contrast (ICD-10-PCS; 2022-01-11)
PROC: B2151ZZ Fluoroscopy of Left Heart using Low Osmolar Contrast (ICD-10-PCS; 2022-01-11)
PROC: B24BZZ3 Ultrasonography of Heart with Aorta, Intravascular (ICD-10-PCS; 2022-01-11)
DX: I13.0 Hypertensive heart and chronic kidney disease with heart failure and stage 1 through stage 4 chronic kidney disease, or unspecified chronic kidney disease (principal); I50.43 Acute on chronic combined systolic (congestive) and diastolic (congestive) heart failure; I21.A1 Myocardial infarction type 2; Z68.41 Body mass index [BMI] 40.0-44.9, adult; I48.11 Longstanding persistent atrial fibrillation; I48.0 Paroxysmal atrial fibrillation; Z20.822 Contact with and (suspected) exposure to COVID-19; E66.01 Morbid (severe) obesity due to excess calories; I25.5 Ischemic cardiomyopathy; E78.5 Hyperlipidemia, unspecified; N18.30 Chronic kidney disease, stage 3 unspecified; I27.20 Pulmonary hypertension, unspecified; I34.0 Nonrheumatic mitral (valve) insufficiency; E11.65 Type 2 diabetes mellitus with hyperglycemia; F32.A Depression, unspecified; D50.9 Iron deficiency anemia, unspecified; I25.10 Atherosclerotic heart disease of native coronary artery without angina pectoris; E11.22 Type 2 diabetes mellitus with diabetic chronic kidney disease; Z98.890 Other specified postprocedural states; Z87.891 Personal history of nicotine dependence; Z90.49 Acquired absence of other specified parts of digestive tract; Z88.1 Allergy status to other antibiotic agents; Z88.2 Allergy status to sulfonamides; Z88.8 Allergy status to other drugs, medicaments and biological substances; Z79.4 Long term (current) use of insulin; Z79.02 Long term (current) use of antithrombotics/antiplatelets; Z79.82 Long term (current) use of aspirin; Z79.899 Other long term (current) drug therapy
CPT/HCPCS: 36415; 71045; 76937; 80048; 80053; 80061; 80069; 82947; 83036; 83735; 83880; 84484; 85025; 85027; 85520; 85610; 85730; 93005; 93010; 93458; 96365; 97110; 97116; 97162; 97165; 97530; 97535; 99285-25; A9270; C1751; C1769; C1887; C1894; C8929; J0461; J1644; J1815; J1940; J2250; J2405; J3010; J7030; J7050; Q9957; Q9967; U0004

== ENCOUNTER → 2022-03-02 | Outpatient (CLI) | payer MEDICARE, OTHER ==
[~2022-03-02] MED LIST changes: +ALLO100; +AMLO5 PO; +CARV3.125 PO; +CATAPRES0.3 MG PO; +DOC250 PO; +ELIQUIS5 M2 PO; +ENTRESTO 49 MG1 EAC3; +ENTRESTO 49 MG1 EACH PO; +HYDRA50 PO; +INSULANI SC; +INSULIN LI100 UNIT/6 SC; +JARDIANCE25 MG PO; +METO10SY PO; +MIRALAX17 GM PO; +SPIR25 PO; +THERA-D2000 UNIT PO
[2022-03-02 16:14] LABS: Source, Urine Clean Catch
[2022-03-02 16:46] LABS: Bilirubin, Urine Neg (Neg); Blood, Urine Neg (Neg); Glucose Qualitative, Urine 4+ (Neg); Ketones, Urine Neg (Neg); Leukocyte Esterase, Urine 1+ (Neg); Nitrite, Urine Pos (Neg); Protein, Urine Neg (Neg); Urobilinogen, Urine NORM (Normal)
[2022-03-02 16:53] LABS: Color, Urine Pale Yellow (P-Yellow)
[2022-03-02 16:55] LABS: Appearance, Urine Hazy (Clear); Bacteria Many /hpf; Red Blood Cells, Urine 0-2 /hpf (0-2); Squamous Epithelial Cells Few /hpf (Few)
== END | disposition home or self-care (01) ==
LOC: LAB SHORT 15:35 → LAB 15:35
PROVIDERS: Family Medicine
DX: N39.0 Urinary tract infection, site not specified (principal)
CPT/HCPCS: 81001; 87077; 87086; 87186

== ENCOUNTER → 2022-04-16 | Outpatient (CLI) | payer MEDICARE, OTHER ==
[~2022-04-16] MED LIST changes: +BASAGLAR K100 UNIT/1 SC
[2022-04-16 17:51] LABS: Source, Urine Voided
[2022-04-16 18:58] LABS: Appearance, Urine Hazy (Clear); Bilirubin, Urine Neg (Neg); Blood, Urine 2+ (Neg); Glucose Qualitative, Urine 4+ (Neg); Ketones, Urine Neg (Neg); Leukocyte Esterase, Urine 2+ (Neg); Nitrite, Urine Neg (Neg); Protein, Urine 2+ (Neg); Specific Gravity, Urine 1.015 (1.003-1.022); Urobilinogen, Urine NORM (Normal)
[2022-04-16 19:10] LABS: Color, Urine Pale Yellow (P-Yellow)
[2022-04-16 19:12] LABS: White Blood Cells, Urine 25-50 /hpf (0-5)
[2022-04-16 19:13] LABS: Bacteria Many /hpf; Hyaline Casts 0-2 /lpf (0-2); Squamous Epithelial Cells Few /hpf (Few); Transitional Epithelial Cells Rare /hpf (0-Rare); WBC Cast 0-2 /lpf (0)
== END | disposition home or self-care (01) ==
LOC: LAB SHORT 17:49 → LAB 17:49
PROVIDERS: Family Medicine
DX: N39.0 Urinary tract infection, site not specified (principal)
CPT/HCPCS: 81001; 87077; 87086; 87186

== ENCOUNTER → 2022-05-08 | Outpatient (CLI) | payer MEDICARE, OTHER ==
[~2022-05-08] MED LIST changes: -ALLO100; +ALLO100 PO; +LEVFLO500 PO
[2022-05-08 15:12] LABS: Appearance, Urine Hazy (Clear); Bilirubin, Urine Neg (Neg); Blood, Urine 1+ (Neg); Color, Urine Yellow (P-Yellow); Glucose Qualitative, Urine 4+ (Neg); Ketones, Urine Neg (Neg); Leukocyte Esterase, Urine 3+ (Neg); Nitrite, Urine Pos (Neg); Protein, Urine 1+ (Neg); Urobilinogen, Urine NORM (Normal)
[2022-05-08 15:19] LABS: Bacteria Many /hpf; Red Blood Cells, Urine 0-2 /hpf (0-2); Squamous Epithelial Cells Few /hpf (Few); White Blood Cells, Urine 25-50 /hpf (0-5); Yeast/Fungi Urine Few /hpf
== END ==
LOC: LAB SHORT 09:00 → LAB 09:00
PROVIDERS: Family Medicine
DX: N39.0 Urinary tract infection, site not specified (principal)
CPT/HCPCS: 81001; 87086

== ENCOUNTER 2022-05-14 06:45 | Observation (INO) | payer MEDICARE, OTHER ==
[~2022-05-14] VITALS: Ht 165.1 cm; Wt 121.2 kg
[~2022-05-14 06:45] MED LIST changes: -LEVFLO500 PO
[2022-05-14 07:04] LABS: BASOPHILS ABSOLUTE AUTO 0.06 K/mm3 (0.00-0.23); BASOPHILS PERCENT AUTO 1 % (0-2); EOSINOPHILS ABSOLUTE AUTO 0.14 K/mm3 (0.00-0.68); EOSINOPHILS PERCENT AUTO 1 % (0-6); Hematocrit 43.6 % (33.0-51.0); Hemoglobin 14.2 g/dL (11.5-16.0); IMMATURE GRAN ABSOLUTE AUTO 0.04 K/mm3 (0.00-0.10); IMMATURE GRAN PERCENT AUTO 0 % (0-1); LYMPHOCYTES ABSOLUTE AUTO 2.16 K/mm3 (0.84-5.20); LYMPHOCYTES PERCENT AUTO 19 % (21-46); MONOCYTES PERCENT AUTO 5 % (4-13); Mean Corpuscular HGB 29.6 pg (26.0-34.0); Mean Corpuscular HGB Conc 32.6 g/dL (31.5-36.5); Mean Corpuscular Volume 91 fL (80-100); NEUTROPHILS ABSOLUTE AUTO 8.63 K/mm3 (1.96-9.15); NEUTROPHILS PERCENT AUTO 74 % (41-73); Platelet Count 218 K/mm3 (150-400); RDW Coefficient Variation 14.6 % (11.7-14.2); RDW Standard Deviation 48.5 fL (35.1-46.3); Red Blood Cell Count 4.79 M/mm3 (3.80-5.20); White Blood Cell Count 11.63 K/mm3 (4.00-11.30)
[2022-05-14] MEDS ORDERED: BASAGLAR K100 UNIT/1 SC (07:15)
[2022-05-14] MEDS ORDERED: CIPR250 PO (07:16)
[2022-05-14] MEDS ORDERED: Prozac20 MG PO (07:18)
[2022-05-14 07:20] LABS: Albumin, Blood 3.4 g/dL (3.4-5.0); Albumin/Globulin Ratio 0.9 (0.8-1.8); Bilirubin, Total 0.3 mg/dL (0.1-1.0); Bun/Creatinine Ratio 17.3 (12.0-20.0); Calcium, Blood 10.3 mg/dL (8.5-10.1); Creatinine, Blood 1.04 mg/dL (0.40-1.00); Globulin, Blood 3.8 g/dL (2.2-4.0); Total Protein, Blood 7.2 g/dL (6.4-8.2)
[2022-05-14 08:04] LABS: Influenza A, PCR NEGATIVE (NEGATIVE); Influenza B, PCR NEGATIVE (NEGATIVE); Resp Syncytial Virus, PCR NEGATIVE (NEGATIVE); SARS-Cov-2 (COVID-19) PCR, MMC NEGATIVE (NEGATIVE)
[2022-05-14 14:22] LABS: Source, Urine Clean Catch
[2022-05-14 14:33] LABS: Bilirubin, Urine Neg (Neg); Blood, Urine 1+ (Neg); Glucose Qualitative, Urine 3+ (Neg); Ketones, Urine Neg (Neg); Leukocyte Esterase, Urine 1+ (Neg); Nitrite, Urine Neg (Neg); Protein, Urine 1+ (Neg); Specific Gravity, Urine 1.005 (1.003-1.022); Urobilinogen, Urine NORM (Normal)
[2022-05-14 14:42] LABS: Appearance, Urine Clear (Clear); Color, Urine Pale Yellow (P-Yellow)
[2022-05-14 14:44] LABS: Bacteria Mod /hpf; Squamous Epithelial Cells Few /hpf (Few); Yeast/Fungi Urine Few /hpf
[2022-05-15 05:05] LABS: Hematocrit 36.8 % (33.0-51.0); Mean Corpuscular HGB 29.6 pg (26.0-34.0); Mean Corpuscular HGB Conc 32.6 g/dL (31.5-36.5); Mean Corpuscular Volume 91 fL (80-100); Mean Platelet Volume 9.6 fL (9.1-12.4); Platelet Count 184 K/mm3 (150-400); RDW Coefficient Variation 14.6 % (11.7-14.2); RDW Standard Deviation 48.5 fL (35.1-46.3); Red Blood Cell Count 4.05 M/mm3 (3.80-5.20); White Blood Cell Count 7.84 K/mm3 (4.00-11.30)
[2022-05-15 05:33] LABS: Bun/Creatinine Ratio 16.4 (12.0-20.0); Calcium, Blood 9.5 mg/dL (8.5-10.1); Creatinine, Blood 1.22 mg/dL (0.40-1.00); Potassium, Blood 3.7 mmol/L (3.5-5.5)
--- NOTE | 2022-05-15 07:18 | NUR ---
PT A&O X 4- PT SLEPT MOST OF THE NIGHT- PERIWICK IN PLACE- APPLIED NYSTATIN POWDER AND CALMAZINE CREAM TO SENAIT AREA - PT EXCORIATED- PT REPORTS HER RASH HAS GOTTEN WORSE IN THE LAST WEEK - PT CALLED APPROPRIATELY- BED LOW POSITION, CALL LIGHT WITHIN REACH, PT REPOSITIONS SELF, BED ALARM IN PLACE- REPORT TO MARIA DE JESUS WILLS
--- NOTE | 2022-05-15 13:43 | NUR ---
Pt able to ambulate with 1 assist using walker.
[2022-05-15] MEDS ORDERED: FURO20 PO (14:25)
[2022-05-15] MEDS ORDERED: LEVFLO500 PO (14:30)
--- NOTE | 2022-05-15 16:51 | NUR ---
Pt discharge with all belongings.
== END 2022-05-15 17:29 | disposition home or self-care (01) ==
LOC: ER 06:45 → MEDS 06:46
PROVIDERS: Emergency Medicine; Nurse Practitioner Acute Care; ADMIT Internal Medicine
DX: J18.9 Pneumonia, unspecified organism (principal); I50.41 Acute combined systolic (congestive) and diastolic (congestive) heart failure; N39.0 Urinary tract infection, site not specified; Z79.01 Long term (current) use of anticoagulants; I48.91 Unspecified atrial fibrillation; E11.9 Type 2 diabetes mellitus without complications; Z79.4 Long term (current) use of insulin; I11.0 Hypertensive heart disease with heart failure; G47.33 Obstructive sleep apnea (adult) (pediatric); K21.9 Gastro-esophageal reflux disease without esophagitis; M10.9 Gout, unspecified; D50.9 Iron deficiency anemia, unspecified
CPT/HCPCS: 0241U; 36415; 71045; 80048; 80053; 81001; 82947; 83605; 83880; 84145; 84484; 85025; 85027; 87040; 87086; 93005; 93010; 96365; 96366; 96375; 99285-25; A9270; G0378; J1815; J1940; J1956; J2405

== ENCOUNTER → 2022-07-23 | Outpatient (CLI) | payer MEDICARE, OTHER ==
[~2022-07-23] MED LIST changes: +LEVFLO500 PO
[2022-07-23 12:17] LABS: Creatinine Urine 37.1 mg/dL (27.00-270.00); Microalbumin, Urine Quant. 15.2 mg/L (0.000-20.000); Protein, Urine Quantitative 9.2 mg/dL (0.0-11.9)
== END | disposition home or self-care (01) ==
LOC: LAB SHORT 07:39 → LAB 07:39
PROVIDERS: Internal Medicine Nephrology
DX: N18.30 Chronic kidney disease, stage 3 unspecified (principal); D63.1 Anemia in chronic kidney disease; N25.81 Secondary hyperparathyroidism of renal origin; E55.9 Vitamin D deficiency, unspecified; E78.00 Pure hypercholesterolemia, unspecified; D51.8 Other vitamin B12 deficiency anemias; R76.9 Abnormal immunological finding in serum, unspecified; R94.5 Abnormal results of liver function studies; R94.6 Abnormal results of thyroid function studies
CPT/HCPCS: 81050; 82043; 82570; 84156

== ENCOUNTER → 2022-09-09 | Outpatient (CLI) | payer MEDICARE, OTHER ==
[2022-09-09 12:26] LABS: Appearance, Urine Hazy (Clear); Bilirubin, Urine Neg (Neg); Blood, Urine 2+ (Neg); Color, Urine Yellow (P-Yellow); Glucose Qualitative, Urine 4+ (Neg); Ketones, Urine Neg (Neg); Leukocyte Esterase, Urine 3+ (Neg); Nitrite, Urine Pos (Neg); Protein, Urine 1+ (Neg); Specific Gravity, Urine 1.015 (1.003-1.022); Urobilinogen, Urine NORM (Normal)
[2022-09-09 13:00] LABS: Bacteria Many /hpf; Red Blood Cells, Urine 0-2 /hpf (0-2); Squamous Epithelial Cells Rare /hpf (Few)
== END | disposition home or self-care (01) ==
LOC: LAB SHORT 10:00 → LAB 10:00
PROVIDERS: Family Medicine
DX: N39.0 Urinary tract infection, site not specified (principal)
CPT/HCPCS: 81001; 87077; 87086; 87186

== ENCOUNTER 2022-09-23 11:28 | Emergency (ER) | payer OTHER, MEDICARE ==
[~2022-09-23] VITALS: Ht 162.6 cm; Wt 113.4 kg
[2022-09-23 12:07] VITALS: BP 149/55
[2022-09-23] MEDS ORDERED: POTA8 PO (12:16)
== END 2022-09-23 14:10 | disposition home or self-care (01) ==
LOC: ER 11:28
DX: S00.03XA Contusion of scalp, initial encounter (principal); W01.198A Fall on same level from slipping, tripping and stumbling with subsequent striking against other object, initial encounter; I11.0 Hypertensive heart disease with heart failure; I50.22 Chronic systolic (congestive) heart failure; I48.91 Unspecified atrial fibrillation; E11.9 Type 2 diabetes mellitus without complications; E78.5 Hyperlipidemia, unspecified; I25.2 Old myocardial infarction; Z88.2 Allergy status to sulfonamides; Z88.1 Allergy status to other antibiotic agents; Z88.8 Allergy status to other drugs, medicaments and biological substances; Z79.899 Other long term (current) drug therapy; Z79.4 Long term (current) use of insulin; Z79.01 Long term (current) use of anticoagulants
CPT/HCPCS: 99283

== ENCOUNTER → 2022-12-09 | Outpatient (CLI) | payer MEDICARE, OTHER ==
[~2022-12-09] MED LIST changes: +POTA8 PO
== END ==
LOC: LAB SHORT 13:16 → LAB 13:16
DX: R19.7 Diarrhea, unspecified (principal)
CPT/HCPCS: 87015; 87045; 87046; 87205; 87899

== ENCOUNTER → 2022-12-11 | Outpatient (CLI) | payer MEDICARE, OTHER ==
[2022-12-11 14:02] LABS: C DIFFICILE DNA NEGATIVE (Negative)
== END | disposition home or self-care (01) ==
LOC: LAB 07:30 → LAB SHORT 07:30
PROVIDERS: Family Medicine
DX: R19.7 Diarrhea, unspecified (principal)
CPT/HCPCS: 87493

== ENCOUNTER 2022-12-18 19:39 | Inpatient (IN) | payer MEDICARE, OTHER ==
[~2022-12-18] VITALS: Ht 167.6 cm; Wt 113.1 kg
[~2022-12-18 19:39] MED LIST changes: +FURO40 PO; +Lovastatin20 MG PO
[2022-12-18 20:25] LABS: BASOPHILS ABSOLUTE AUTO 0.06 K/mm3 (0.00-0.23); BASOPHILS PERCENT AUTO 0 % (0-2); EOSINOPHILS ABSOLUTE AUTO 0.04 K/mm3 (0.00-0.68); EOSINOPHILS PERCENT AUTO 0 % (0-6); Hematocrit 44.4 % (33.0-51.0); Hemoglobin 14.4 g/dL (11.5-16.0); IMMATURE GRAN ABSOLUTE AUTO 0.05 K/mm3 (0.00-0.10); IMMATURE GRAN PERCENT AUTO 0 % (0-1); LYMPHOCYTES PERCENT AUTO 6 % (21-46); MONOCYTES PERCENT AUTO 2 % (4-13); Mean Corpuscular HGB Conc 32.4 g/dL (31.5-36.5); Mean Corpuscular Volume 89 fL (80-100); Mean Platelet Volume 9.2 fL (9.1-12.4); NEUTROPHILS ABSOLUTE AUTO 14.41 K/mm3 (1.96-9.15); NEUTROPHILS PERCENT AUTO 91 % (41-73); Platelet Count 181 K/mm3 (150-400); RDW Coefficient Variation 14.6 % (11.7-14.2); RDW Standard Deviation 47.4 fL (35.1-46.3); Red Blood Cell Count 4.97 M/mm3 (3.80-5.20); White Blood Cell Count 15.76 K/mm3 (4.00-11.30)
[2022-12-18 20:39] LABS: Source, Urine Straight Cath
[2022-12-18 20:45] LABS: Appearance, Urine Cloudy (Clear); Bilirubin, Urine Neg (Neg); Blood, Urine 2+ (Neg); Glucose Qualitative, Urine 4+ (Neg); Ketones, Urine Neg (Neg); Leukocyte Esterase, Urine 3+ (Neg); Nitrite, Urine Pos (Neg); Protein, Urine 2+ (Neg); Specific Gravity, Urine 1.015 (1.003-1.022); Urobilinogen, Urine NORM (Normal)
[2022-12-18 20:50] LABS: Color, Urine Pale Yellow (P-Yellow)
[2022-12-18 20:53] LABS: Bacteria Many /hpf; White Blood Cells, Urine 50-100 /hpf (0-5)
[2022-12-18 20:54] LABS: Squamous Epithelial Cells Few /hpf (Few)
[2022-12-18 21:01] LABS: Albumin, Blood 3.4 g/dL (3.4-5.0); Albumin/Globulin Ratio 1.1 (0.8-1.8); Bilirubin, Total 0.6 mg/dL (0.1-1.0); Bun/Creatinine Ratio 12.8 (12.0-20.0); Calcium, Blood 9.5 mg/dL (8.5-10.1); Creatinine, Blood 1.33 mg/dL (0.40-1.00); Globulin, Blood 3.2 g/dL (2.2-4.0); Potassium, Blood 3.7 mmol/L (3.5-5.5); Total Protein, Blood 6.6 g/dL (6.4-8.2)
[2022-12-18 21:24] LABS: Influenza A, PCR NEGATIVE (NEGATIVE); Influenza B, PCR NEGATIVE (NEGATIVE); Resp Syncytial Virus, PCR NEGATIVE (NEGATIVE); SARS-Cov-2 (COVID-19) PCR, MMC NEGATIVE (NEGATIVE)
--- NOTE | 2022-12-19 01:57 | NUR ---
ADMISSION NOTE PATIENT ARRIVED AT 01:20 FROM ED. IS A/0x4, BRIGHT AFFECT. DENIES PAIN NOR DISCOMFORT. SPO2 94% ON RA. HEART RATE IS IRREGULAR, Hx OF CHRONIC AFIB. LUNGS CTA, DIMINISHED TO BASES. ORIENTED TO UNIT, ROOM AND CALL LIGHT USE. PATIENT STATES, "I'M JUST HERE FOR ANOTHER UTI." APPEARES IN NO ACUTE DISTRESS. STATES NORMALLY USES A WALKER AT HOME. ENDORSES SOME WEAKNESS DUE TO RECENT UTI. 1 ASSIST WITH FWW AND GAIT BELT FOR TRANSFERS. PIV TO RIGHT AC, PATENT, FLUSHING WELL. BED LOCKED AND IN LOW POSITION WITH HOB ELEVATED FOR PATIENT COMFORT, CALL LIGHT WITHIN REACH.
[2022-12-19] MEDS ORDERED: ACIDOPHILUS1 EAC3 PO (02:51)
[2022-12-19] MEDS ORDERED: TRULICITY0.75 MG/01 SC (02:57)
[2022-12-19] MEDS ORDERED: LOPE2C PO (02:59)
--- NOTE | 2022-12-19 04:42 | NUR ---
SHIFT SUMMARY PATIENT ALERT, PLEASANT AND COOPERATIVE. WITHOUT ANY COMPLAINTS VERBALIZED. PIV TO RIGHT AC, INFUSING NS@125. NO ACUTE CHANGES NOTED OVERNIGHT. SEE ADMIT NOTE FOR FURTHER DETAILS. BED LOW, CALL LIGHT WITHIN REACH.
[2022-12-19 05:55] LABS: BASOPHILS ABSOLUTE AUTO 0.05 K/mm3 (0.00-0.23); BASOPHILS PERCENT AUTO 1 % (0-2); EOSINOPHILS ABSOLUTE AUTO 0.02 K/mm3 (0.00-0.68); EOSINOPHILS PERCENT AUTO 0 % (0-6); Hemoglobin 13.1 g/dL (11.5-16.0); IMMATURE GRAN ABSOLUTE AUTO 0.02 K/mm3 (0.00-0.10); IMMATURE GRAN PERCENT AUTO 0 % (0-1); LYMPHOCYTES ABSOLUTE AUTO 1.82 K/mm3 (0.84-5.20); LYMPHOCYTES PERCENT AUTO 18 % (21-46); MONOCYTES ABSOLUTE AUTO 0.64 K/mm3 (0.16-1.47); MONOCYTES PERCENT AUTO 6 % (4-13); Mean Corpuscular HGB 29.2 pg (26.0-34.0); Mean Corpuscular HGB Conc 32.8 g/dL (31.5-36.5); Mean Corpuscular Volume 89 fL (80-100); Mean Platelet Volume 9.5 fL (9.1-12.4); NEUTROPHILS ABSOLUTE AUTO 7.52 K/mm3 (1.96-9.15); NEUTROPHILS PERCENT AUTO 75 % (41-73); Platelet Count 162 K/mm3 (150-400); RDW Coefficient Variation 14.6 % (11.7-14.2); Red Blood Cell Count 4.49 M/mm3 (3.80-5.20); White Blood Cell Count 10.07 K/mm3 (4.00-11.30)
[2022-12-19 06:19] LABS: Albumin, Blood 2.7 g/dL (3.4-5.0); Albumin/Globulin Ratio 0.9 (0.8-1.8); Bilirubin, Total 0.4 mg/dL (0.1-1.0); Bun/Creatinine Ratio 14.3 (12.0-20.0); Calcium, Blood 8.8 mg/dL (8.5-10.1); Creatinine, Blood 1.26 mg/dL (0.40-1.00); Globulin, Blood 2.9 g/dL (2.2-4.0); Potassium, Blood 3.6 mmol/L (3.5-5.5); Total Protein, Blood 5.6 g/dL (6.4-8.2)
[2022-12-19 07:45] VITALS: BP 141/62
--- NOTE | 2022-12-19 16:39 | NUR ---
SHIFT SUMMARY- PT IS A/O, PLESANT AND COOPERATVIE. SHE IS EATING AND DRINKING WELL. RECIEVING IV FLUIDS, AND ABX. SHE WAS UP TO THE [facility] THIS SHFIT. SHE SLEPT INTERMITENTLY THROUGHOUT THIS SHIFT. RECIEVED A BEDBATH. HER BED IS IN THE LOW POSITON AND CALL LIGHT IS WITIN REACH.
[2022-12-19 16:44] VITALS: BP 121/70
[2022-12-19 19:49] VITALS: BP 122/85
[2022-12-20 04:21] VITALS: BP 134/59
--- NOTE | 2022-12-20 04:34 | NUR ---
SHIFT SUMMARY PATIENT A/0x4, PLEASANT AFFECT. DENIES PAIN NOR DISCOMFORT. EDEMA TO FEET APPEARES TO BE IMPROVING. NO ACUTE CHANGES NOTED OVERNIGHT. SLEEPING THROUGHOUT MOST OF SHIFT. PIV TO RIGHT AC, PATENT, INFUSING NS@125mL/HR. BED LOCKED AND IN LOW POSITION, CALL LIGHT WITHIN REACH.
[2022-12-20 05:34] LABS: BASOPHILS ABSOLUTE AUTO 0.04 K/mm3 (0.00-0.23); BASOPHILS PERCENT AUTO 1 % (0-2); EOSINOPHILS ABSOLUTE AUTO 0.13 K/mm3 (0.00-0.68); EOSINOPHILS PERCENT AUTO 2 % (0-6); Hematocrit 40.8 % (33.0-51.0); Hemoglobin 13.1 g/dL (11.5-16.0); IMMATURE GRAN ABSOLUTE AUTO 0.02 K/mm3 (0.00-0.10); IMMATURE GRAN PERCENT AUTO 0 % (0-1); LYMPHOCYTES ABSOLUTE AUTO 2.84 K/mm3 (0.84-5.20); LYMPHOCYTES PERCENT AUTO 36 % (21-46); MONOCYTES ABSOLUTE AUTO 0.88 K/mm3 (0.16-1.47); MONOCYTES PERCENT AUTO 11 % (4-13); Mean Corpuscular HGB 28.9 pg (26.0-34.0); Mean Corpuscular HGB Conc 32.1 g/dL (31.5-36.5); Mean Corpuscular Volume 90 fL (80-100); Mean Platelet Volume 9.5 fL (9.1-12.4); NEUTROPHILS ABSOLUTE AUTO 3.89 K/mm3 (1.96-9.15); NEUTROPHILS PERCENT AUTO 50 % (41-73); Platelet Count 164 K/mm3 (150-400); RDW Coefficient Variation 14.6 % (11.7-14.2); RDW Standard Deviation 48.1 fL (35.1-46.3); Red Blood Cell Count 4.53 M/mm3 (3.80-5.20)
[2022-12-20 06:33] LABS: Albumin, Blood 2.4 g/dL (3.4-5.0); Albumin/Globulin Ratio 0.8 (0.8-1.8); Bilirubin, Total 0.4 mg/dL (0.1-1.0); Bun/Creatinine Ratio 17.4 (12.0-20.0); Calcium, Blood 8.7 mg/dL (8.5-10.1); Creatinine, Blood 0.98 mg/dL (0.40-1.00); Total Protein, Blood 5.4 g/dL (6.4-8.2)
[2022-12-20 07:59] VITALS: BP 151/82
[2022-12-20 15:31] VITALS: BP 163/56
[2022-12-20 15:32] VITALS: BP 163/56
--- NOTE | 2022-12-20 17:54 | NUR ---
SHIFT SUMMARY: RALPH IS A&OX4. VSS, NO ACUTE EVENTS THIS SHIFT. PT REPORTED LACK OF BM AND FEELING CONSTIPATED. DISCUSSED WITH HOSPITALIST AND ORDERS FOR LACTULOSE AND A STOOL SOFTENER RECEIVED. PT RECEIVING IV MERREM Q8, IV FLUIDS DISCONTINUED, BP TRENDING UP. SHE HAS TOLERATED PO INTAKE WELL, BLOOD SUGARS DID NOT REQUIRE CORRECTION WITH HUMALOG. SHE HAS USED THE CALL LIGHT APPROPRIATELY THIS SHIFT. SHE IS A ONE PERSON ASSIST TO THE BEDSIDE COMMODE, CONTINENT OF BLADDER AND BOWEL. 20G IV TO R AC PATENT. SHE IS SITTING UP IN BED WITH THE CALL LIGHT IN REACH. WCTM UNTIL REPORT IS GIVEN TO REPAIR MANAGER RN.
[2022-12-20 19:31] VITALS: BP 154/69
--- NOTE | 2022-12-21 04:09 | NUR ---
SHIFT SUMMARY PATIENT ALERT, PLEASANT, BRIGHT AFFECT. MORE ALERT/INTERACTIVE THIS SHIFT. DENIES PAIN NOR DISCOMFORT. CONTINUES ON IV ABx THERAPY WITHOUT ANY APPARENT ADVERSE EFFECTS. NO ACUTE CHANGES NOTED OVERNIGHT. BED LOCKED AND IN LOW POSITION, CALL LIGHT WITHIN REACH.
[2022-12-21 04:38] VITALS: BP 150/76
[2022-12-21 05:10] LABS: BASOPHILS ABSOLUTE AUTO 0.04 K/mm3 (0.00-0.23); BASOPHILS PERCENT AUTO 1 % (0-2); EOSINOPHILS ABSOLUTE AUTO 0.14 K/mm3 (0.00-0.68); EOSINOPHILS PERCENT AUTO 2 % (0-6); Hemoglobin 13.5 g/dL (11.5-16.0); IMMATURE GRAN ABSOLUTE AUTO 0.02 K/mm3 (0.00-0.10); IMMATURE GRAN PERCENT AUTO 0 % (0-1); LYMPHOCYTES ABSOLUTE AUTO 2.31 K/mm3 (0.84-5.20); LYMPHOCYTES PERCENT AUTO 32 % (21-46); MONOCYTES ABSOLUTE AUTO 0.68 K/mm3 (0.16-1.47); MONOCYTES PERCENT AUTO 9 % (4-13); Mean Corpuscular HGB 28.8 pg (26.0-34.0); Mean Corpuscular HGB Conc 32.1 g/dL (31.5-36.5); Mean Corpuscular Volume 90 fL (80-100); Mean Platelet Volume 9.6 fL (9.1-12.4); NEUTROPHILS PERCENT AUTO 56 % (41-73); Platelet Count 171 K/mm3 (150-400); RDW Coefficient Variation 14.5 % (11.7-14.2); RDW Standard Deviation 47.6 fL (35.1-46.3); Red Blood Cell Count 4.68 M/mm3 (3.80-5.20); White Blood Cell Count 7.29 K/mm3 (4.00-11.30)
[2022-12-21 06:02] LABS: Albumin, Blood 2.6 g/dL (3.4-5.0); Albumin/Globulin Ratio 0.9 (0.8-1.8); Bilirubin, Total 0.2 mg/dL (0.1-1.0); Bun/Creatinine Ratio 16.5 (12.0-20.0); Calcium, Blood 9.2 mg/dL (8.5-10.1); Creatinine, Blood 1.03 mg/dL (0.40-1.00); Globulin, Blood 2.9 g/dL (2.2-4.0); Potassium, Blood 3.7 mmol/L (3.5-5.5); Total Protein, Blood 5.5 g/dL (6.4-8.2)
[2022-12-21 07:46] VITALS: BP 153/64
[2022-12-21 15:20] VITALS: BP 132/55
--- NOTE | 2022-12-21 19:21 | NUR ---
DAY SHIFT SUMMARY: A&Ox4. PLEASANT AND COOPERATIVE WITH CARE. CONTACT FOR ESBL IN URINE. INDEPENDENT IN ROOM. IV KVO WITH ABx BID. PILLS WHOLE WITH FLUIDS. NO CONCERNS. DECLINED LACTULOSE TODAY D/T C/O LOOSE STOOLS AFTER LAST DOSE. NO CONCERNS. UPDATE TO [facility] TODAY. REPORT TO ONCOMING RN.
[2022-12-21 19:52] VITALS: BP 153/63
[2022-12-22 02:40] VITALS: BP 161/81
--- NOTE | 2022-12-22 04:01 | NUR ---
NO ACUTE CHANGES THROUGH THE NIGHT, WOKE EASILY AND BACK TO SLEEP, MAKES NEEDS KNOWN, NO SWALLOWING DIFFICULTIES, WAITING PLACEMENT AT [facility]. CALL LIGHT WITH IN REACH, WILL RELAY TO PM RN
[2022-12-22 05:25] LABS: BASOPHILS ABSOLUTE AUTO 0.03 K/mm3 (0.00-0.23); BASOPHILS PERCENT AUTO 0 % (0-2); EOSINOPHILS ABSOLUTE AUTO 0.14 K/mm3 (0.00-0.68); EOSINOPHILS PERCENT AUTO 2 % (0-6); Hematocrit 41.2 % (33.0-51.0); Hemoglobin 13.5 g/dL (11.5-16.0); IMMATURE GRAN ABSOLUTE AUTO 0.02 K/mm3 (0.00-0.10); IMMATURE GRAN PERCENT AUTO 0 % (0-1); LYMPHOCYTES ABSOLUTE AUTO 2.75 K/mm3 (0.84-5.20); LYMPHOCYTES PERCENT AUTO 36 % (21-46); MONOCYTES ABSOLUTE AUTO 0.58 K/mm3 (0.16-1.47); MONOCYTES PERCENT AUTO 8 % (4-13); Mean Corpuscular HGB Conc 32.8 g/dL (31.5-36.5); Mean Corpuscular Volume 89 fL (80-100); Mean Platelet Volume 9.3 fL (9.1-12.4); NEUTROPHILS ABSOLUTE AUTO 4.11 K/mm3 (1.96-9.15); NEUTROPHILS PERCENT AUTO 54 % (41-73); Platelet Count 183 K/mm3 (150-400); RDW Coefficient Variation 14.5 % (11.7-14.2); RDW Standard Deviation 46.6 fL (35.1-46.3); Red Blood Cell Count 4.65 M/mm3 (3.80-5.20); White Blood Cell Count 7.63 K/mm3 (4.00-11.30)
[2022-12-22 06:11] LABS: Albumin, Blood 2.6 g/dL (3.4-5.0); Albumin/Globulin Ratio 0.9 (0.8-1.8); Bilirubin, Total 0.2 mg/dL (0.1-1.0); Bun/Creatinine Ratio 17.2 (12.0-20.0); Calcium, Blood 9.1 mg/dL (8.5-10.1); Creatinine, Blood 0.93 mg/dL (0.40-1.00); Potassium, Blood 3.7 mmol/L (3.5-5.5); Total Protein, Blood 5.6 g/dL (6.4-8.2)
[2022-12-22 07:26] VITALS: BP 157/75
[2022-12-22 15:49] VITALS: BP 144/57
[2022-12-22 19:54] VITALS: BP 149/52
--- NOTE | 2022-12-22 20:18 | NUR ---
DAY SHIFT SUMMARY: A&Ox4. PLEASANT AND COOPERATIVE WITH CARE. CALLS APPROPRIATELY AND ABLE TO COMMUNCIATE NEEDS EFFECTIVELY. SOME C/O RASH BENEATH PANIS TODAY; POWDER APPLIED. NO C/O PAIN OR DISCOMFORT. AMBULATES INDEPENDENTLY. PROVIDER DISCUSSED NEED FOR SHELTER IV ABT; ANTICIPATE DC HOME VS SNF. REPORT TO ONCOMING RN.
[2022-12-23 05:00] VITALS: BP 152/72
--- NOTE | 2022-12-23 05:34 | NUR ---
ALERT AND ORIENTED, MAKES NEEDS KNOWN, USES CALL LIGHT APPROPRIATLEY, PATIENT SLEPT MAJORITY OF EVENING, WOKE EASILY THIS AM, AMBULATED TO BATHROOM INDEPENDENTLY, CHANGED ATTENDS, PATIENT TO GO BACK TO [place], PATIENT TO POSSIBLE HAVE OUTPATIENT IV ANTIBIOTICS TO BE ASSESSED TODAY. LS DIMINSHED IN BASES, DENIES CP OR NV, HTN AT 152/72, 97% ON RA, BS 115 AT HS NO COVERAGE REQUIRED. CALL LIGHT WITH IN REACH, WILL RELAY TO PM JOHANN
[2022-12-23 08:02] VITALS: BP 153/68
[2022-12-23] MEDS ORDERED: ERTAPENEM1 G6 IV (12:20)
--- NOTE | 2022-12-23 17:03 | NUR ---
SHIFT SUMMARY- VSS. ON RA. CONTENT/ INCONTENT. APPETITE GOOD. A&O X4. INDEPEDANT IN ROOM. CALL LIGHT IN REACH. WILL CONTINUE TO MONITOR D/C PT DC TO SNF. ALL BELONGINGS WITH TRANSPORT TO SNF. PAPERWORK SIGNED AND IN HAND.
== END 2022-12-23 14:55 | disposition home or self-care (01) | DRG 690 ==
LOC: ER 19:39 → ERHOLD 22:54 → MEDS 22:54
PROVIDERS: Emergency Medicine; Family Medicine; Hospitalist; ADMIT Internal Medicine
DX: N39.0 Urinary tract infection, site not specified (principal); I50.42 Chronic combined systolic (congestive) and diastolic (congestive) heart failure; I48.20 Chronic atrial fibrillation, unspecified; Z16.12 Extended spectrum beta lactamase (ESBL) resistance; E11.9 Type 2 diabetes mellitus without complications; I11.0 Hypertensive heart disease with heart failure; F32.A Depression, unspecified; E78.5 Hyperlipidemia, unspecified; M19.90 Unspecified osteoarthritis, unspecified site; J42 Unspecified chronic bronchitis; D64.9 Anemia, unspecified; Z20.822 Contact with and (suspected) exposure to COVID-19; B96.20 Unspecified Escherichia coli [E. coli] as the cause of diseases classified elsewhere; Z90.49 Acquired absence of other specified parts of digestive tract; Z98.61 Coronary angioplasty status; Z88.2 Allergy status to sulfonamides; I25.2 Old myocardial infarction; Z88.1 Allergy status to other antibiotic agents; Z88.8 Allergy status to other drugs, medicaments and biological substances; Z79.01 Long term (current) use of anticoagulants; Z79.899 Other long term (current) drug therapy; Z79.4 Long term (current) use of insulin
CPT/HCPCS: 0241U; 36415; 51701; 80053; 81001; 82947; 83605; 85025; 87077; 87086; 87186; 93005; 93010; 96365-59; 99285-25; A9270; J1815; J2185

== ENCOUNTER 2022-12-25 04:58 | Day surgery (SDC) | payer MEDICARE, OTHER ==
[~2022-12-25 04:58] MED LIST changes: +ACIDOPHILUS1 EAC3 PO; +ERTAPENEM1 G6 IV; +LOPE2C PO
[2022-12-25 11:08] VITALS: BP 106/56
== END 2022-12-25 11:17 | disposition home or self-care (01) ==
LOC: ATC 04:58
DX: N39.0 Urinary tract infection, site not specified (principal); Z16.12 Extended spectrum beta lactamase (ESBL) resistance
CPT/HCPCS: 96365; J1335

== ENCOUNTER 2022-12-26 03:44 | Day surgery (SDC) | payer MEDICARE, OTHER ==
[2022-12-26 09:38] VITALS: BP 115/59
== END 2022-12-26 09:53 | disposition home or self-care (01) ==
LOC: ATC 03:44
DX: N39.0 Urinary tract infection, site not specified (principal); Z16.12 Extended spectrum beta lactamase (ESBL) resistance; E11.9 Type 2 diabetes mellitus without complications; I48.91 Unspecified atrial fibrillation; G47.33 Obstructive sleep apnea (adult) (pediatric); Z88.2 Allergy status to sulfonamides; Z88.1 Allergy status to other antibiotic agents
CPT/HCPCS: 96365; J1335

== ENCOUNTER 2022-12-27 02:14 | Day surgery (SDC) | payer MEDICARE, OTHER ==
[2022-12-27 10:44] VITALS: BP 136/63
== END 2022-12-27 10:59 | disposition home or self-care (01) ==
LOC: ATC 02:14
DX: N39.0 Urinary tract infection, site not specified (principal); Z16.12 Extended spectrum beta lactamase (ESBL) resistance; I11.0 Hypertensive heart disease with heart failure; I50.9 Heart failure, unspecified; E11.9 Type 2 diabetes mellitus without complications; E78.5 Hyperlipidemia, unspecified; K21.9 Gastro-esophageal reflux disease without esophagitis
CPT/HCPCS: 96365; J1335

== ENCOUNTER 2022-12-28 10:21 | Day surgery (SDC) | payer MEDICARE, OTHER ==
[2022-12-28 10:33] VITALS: BP 113/61
== END 2022-12-28 10:56 | disposition home or self-care (01) ==
LOC: ATC 10:21
DX: N39.0 Urinary tract infection, site not specified (principal); Z16.12 Extended spectrum beta lactamase (ESBL) resistance; E11.9 Type 2 diabetes mellitus without complications; I12.9 Hypertensive chronic kidney disease with stage 1 through stage 4 chronic kidney disease, or unspecified chronic kidney disease; I50.9 Heart failure, unspecified; E78.5 Hyperlipidemia, unspecified; K21.9 Gastro-esophageal reflux disease without esophagitis; Z79.899 Other long term (current) drug therapy
CPT/HCPCS: 96365; J1335

== ENCOUNTER → 2022-12-31 | Outpatient (CLI) | payer MEDICARE, OTHER ==
[2022-12-31 18:54] LABS: Appearance, Urine Clear (Clear); Bilirubin, Urine Neg (Neg); Blood, Urine Neg (Neg); Glucose Qualitative, Urine 4+ (Neg); Ketones, Urine Neg (Neg); Leukocyte Esterase, Urine Neg (Neg); Nitrite, Urine Neg (Neg); Protein, Urine Neg (Neg); Urobilinogen, Urine NORM (Normal)
[2022-12-31 19:00] LABS: Color, Urine Pale Yellow (P-Yellow)
== END | disposition home or self-care (01) ==
LOC: LAB SHORT 17:44 → LAB 17:44
PROVIDERS: Family Medicine
DX: N39.0 Urinary tract infection, site not specified (principal)
CPT/HCPCS: 81003; 87086

== ENCOUNTER → 2023-02-28 | Outpatient (CLI) | payer MEDICARE, OTHER ==
[2023-02-28 18:11] LABS: Bilirubin, Urine Neg (Neg); Blood, Urine 2+ (Neg); Glucose Qualitative, Urine 4+ (Neg); Ketones, Urine Neg (Neg); Leukocyte Esterase, Urine 3+ (Neg); Nitrite, Urine Neg (Neg); Protein, Urine 1+ (Neg); Specific Gravity, Urine 1.015 (1.003-1.022); Urobilinogen, Urine NORM (Normal)
[2023-02-28 18:23] LABS: Appearance, Urine Hazy (Clear); Color, Urine Yellow (P-Yellow)
[2023-02-28 18:24] LABS: Bacteria Many /hpf; Squamous Epithelial Cells Few /hpf (Few); White Blood Cells, Urine TNTC /hpf (0-5)
== END | disposition home or self-care (01) ==
LOC: LAB SHORT 08:00 → LAB 08:00
PROVIDERS: Physician Assistant
DX: N39.0 Urinary tract infection, site not specified (principal)
CPT/HCPCS: 81001; 87077; 87086; 87186

== ENCOUNTER → 2023-05-20 | Outpatient (CLI) | payer MEDICARE, OTHER | LOC: LAB 16:20 → LAB SHORT 16:20 | DX: L97.509 Non-pressure chronic ulcer of other part of unspecified foot with unspecified severity (principal) | CPT/HCPCS: 87070; 87077; 87147; 87186; 87205 ==

== ENCOUNTER 2023-06-29 17:53 | Emergency (ER) | payer MEDICARE, OTHER ==
[~2023-06-29] VITALS: Ht 162.6 cm; Wt 113.4 kg
[2023-06-29 18:10] LABS: BASOPHILS ABSOLUTE AUTO 0.04 K/mm3 (0.00-0.23); BASOPHILS PERCENT AUTO 0 % (0-2); EOSINOPHILS ABSOLUTE AUTO 0.03 K/mm3 (0.00-0.68); EOSINOPHILS PERCENT AUTO 0 % (0-6); Hemoglobin 14.3 g/dL (11.5-16.0); IMMATURE GRAN ABSOLUTE AUTO 0.07 K/mm3 (0.00-0.10); IMMATURE GRAN PERCENT AUTO 1 % (0-1); LYMPHOCYTES ABSOLUTE AUTO 1.38 K/mm3 (0.84-5.20); LYMPHOCYTES PERCENT AUTO 9 % (21-46); MONOCYTES ABSOLUTE AUTO 0.76 K/mm3 (0.16-1.47); MONOCYTES PERCENT AUTO 5 % (4-13); Mean Corpuscular HGB 30.9 pg (26.0-34.0); Mean Corpuscular HGB Conc 32.5 g/dL (31.5-36.5); Mean Corpuscular Volume 95 fL (80-100); Mean Platelet Volume 8.8 fL (9.1-12.4); NEUTROPHILS ABSOLUTE AUTO 12.92 K/mm3 (1.96-9.15); NEUTROPHILS PERCENT AUTO 85 % (41-73); Platelet Count 191 K/mm3 (150-400); RDW Coefficient Variation 13.9 % (11.7-14.2); Red Blood Cell Count 4.63 M/mm3 (3.80-5.20)
[2023-06-29 18:28] LABS: Albumin/Globulin Ratio 0.8 (0.8-1.8); Bilirubin, Total 0.6 mg/dL (0.1-1.0); Calcium, Blood 9.9 mg/dL (8.5-10.1); Creatinine, Blood 1.18 mg/dL (0.40-1.00); Globulin, Blood 3.8 g/dL (2.2-4.0); Potassium, Blood 4.3 mmol/L (3.5-5.5); Total Protein, Blood 6.8 g/dL (6.4-8.2)
[2023-06-29 18:41] LABS: Source, Urine Straight Cath
[2023-06-29 18:56] LABS: Appearance, Urine Cloudy (Clear); Bilirubin, Urine Neg (Neg); Blood, Urine 5+ (Neg); Color, Urine Yellow (P-Yellow); Glucose Qualitative, Urine 4+ (Neg); Ketones, Urine 1+ (Neg); Leukocyte Esterase, Urine 3+ (Neg); Nitrite, Urine Neg (Neg); Protein, Urine 3+ (Neg); Specific Gravity, Urine 1.015 (1.003-1.022); Urobilinogen, Urine NORM (Normal)
[2023-06-29] MEDS ORDERED: NS 1,000 ML IV SCH (19:10)
[2023-06-29 19:11] LABS: Red Blood Cells, Urine TNTC /hpf (0-2); White Blood Cells, Urine TNTC /hpf (0-5)
[2023-06-29 19:13] LABS: Bacteria Many /hpf; Squamous Epithelial Cells Few /hpf (Few); WBC Cast 0-2 /lpf (0)
[2023-06-29 20:00] VITALS: BP 146/57
== END 2023-06-29 23:36 | disposition short-term general hospital (02) ==
LOC: ER 17:53
PROVIDERS: Student in an Organized Health Care Education/Training Program
DX: N13.6 Pyonephrosis (principal); I11.0 Hypertensive heart disease with heart failure; I50.22 Chronic systolic (congestive) heart failure; E11.9 Type 2 diabetes mellitus without complications; I48.91 Unspecified atrial fibrillation; E78.5 Hyperlipidemia, unspecified; I25.2 Old myocardial infarction; Z79.899 Other long term (current) drug therapy; Z79.4 Long term (current) use of insulin; Z79.01 Long term (current) use of anticoagulants; Z88.8 Allergy status to other drugs, medicaments and biological substances; Z88.2 Allergy status to sulfonamides; Z88.1 Allergy status to other antibiotic agents
CPT/HCPCS: 36415; 51701; 74177; 80053; 81001; 83605; 83690; 85025; 87040; 87077; 87086; 87186; 93005; 93010; 96361-59; 96365-59; 99285-25; J2185; J7030; Q9967

== ENCOUNTER 2023-07-07 06:54 | Emergency (ER) | payer MEDICARE, OTHER ==
[~2023-07-07] VITALS: Ht 162.6 cm; Wt 113.4 kg
[2023-07-07] MEDS ORDERED: HYDROmorphone HCl/Pf 1MG SYR IV ONE (07:45)
[2023-07-07] MEDS ORDERED: Ondansetron HCl 2 MG / ML 2ML Vial IV ONE (07:45)
[2023-07-07 08:15] LABS: BASOPHILS ABSOLUTE AUTO 0.06 K/mm3 (0.00-0.23); BASOPHILS PERCENT AUTO 1 % (0-2); EOSINOPHILS ABSOLUTE AUTO 0.09 K/mm3 (0.00-0.68); EOSINOPHILS PERCENT AUTO 1 % (0-6); Hematocrit 41.9 % (33.0-51.0); Hemoglobin 13.6 g/dL (11.5-16.0); IMMATURE GRAN ABSOLUTE AUTO 0.09 K/mm3 (0.00-0.10); IMMATURE GRAN PERCENT AUTO 1 % (0-1); LYMPHOCYTES ABSOLUTE AUTO 2.39 K/mm3 (0.84-5.20); LYMPHOCYTES PERCENT AUTO 23 % (21-46); MONOCYTES ABSOLUTE AUTO 0.58 K/mm3 (0.16-1.47); MONOCYTES PERCENT AUTO 6 % (4-13); Mean Corpuscular HGB Conc 32.5 g/dL (31.5-36.5); Mean Corpuscular Volume 92 fL (80-100); Mean Platelet Volume 8.7 fL (9.1-12.4); NEUTROPHILS ABSOLUTE AUTO 7.13 K/mm3 (1.96-9.15); NEUTROPHILS PERCENT AUTO 69 % (41-73); Platelet Count 238 K/mm3 (150-400); RDW Coefficient Variation 13.5 % (11.7-14.2); Red Blood Cell Count 4.54 M/mm3 (3.80-5.20); White Blood Cell Count 10.34 K/mm3 (4.00-11.30)
[2023-07-07 08:40] LABS: Albumin, Blood 2.9 g/dL (3.4-5.0); Albumin/Globulin Ratio 0.9 (0.8-1.8); Bilirubin, Total 0.4 mg/dL (0.1-1.0); Bun/Creatinine Ratio 23.6 (12.0-20.0); Calcium, Blood 10.2 mg/dL (8.5-10.1); Creatinine, Blood 0.98 mg/dL (0.40-1.00); Globulin, Blood 3.3 g/dL (2.2-4.0); Potassium, Blood 4.1 mmol/L (3.5-5.5); Total Protein, Blood 6.2 g/dL (6.4-8.2)
[2023-07-07 09:01] LABS: Source, Urine Clean Catch
[2023-07-07 09:07] LABS: Appearance, Urine Clear (Clear); Bilirubin, Urine Neg (Neg); Blood, Urine 1+ (Neg); Color, Urine Yellow (P-Yellow); Glucose Qualitative, Urine 4+ (Neg); Ketones, Urine Neg (Neg); Leukocyte Esterase, Urine Neg (Neg); Nitrite, Urine Neg (Neg); Protein, Urine Neg (Neg); Urobilinogen, Urine NORM (Normal)
[2023-07-07 09:13] LABS: Bacteria Rare /hpf; Squamous Epithelial Cells Rare /hpf (Few); White Blood Cells, Urine 0-2 /hpf (0-5)
[2023-07-07] MEDS ORDERED: OXYC5 PO (09:33)
[2023-07-07] MEDS ORDERED: OxyCODONE 5 mg/Acetamin 325 mg TABLET PO ONE (09:35)
[2023-07-07 10:00] VITALS: BP 146/76
== END 2023-07-07 11:05 | disposition home or self-care (01) ==
LOC: ER 06:54
PROVIDERS: Emergency Medicine
DX: N23 Unspecified renal colic (principal); E11.9 Type 2 diabetes mellitus without complications; I10 Essential (primary) hypertension; I48.91 Unspecified atrial fibrillation; Z88.2 Allergy status to sulfonamides; Z88.1 Allergy status to other antibiotic agents; Z88.8 Allergy status to other drugs, medicaments and biological substances; Z79.899 Other long term (current) drug therapy
CPT/HCPCS: 76770; 80053; 81001; 85025; A9270; J1170; J2405

== ENCOUNTER 2023-11-15 07:46 | Emergency (ER) | payer MEDICARE, OTHER ==
[~2023-11-15] VITALS: Ht 167.6 cm; Wt 116.1 kg
[2023-11-15 10:18] LABS: Source, Urine Straight Cath
[2023-11-15 10:20] LABS: Appearance, Urine Hazy (Clear); Bilirubin, Urine Neg (Neg); Blood, Urine 3+ (Neg); Color, Urine Yellow (P-Yellow); Glucose Qualitative, Urine 4+ (Neg); Ketones, Urine Neg (Neg); Leukocyte Esterase, Urine 3+ (Neg); Nitrite, Urine Neg (Neg); Protein, Urine 2+ (Neg); Urobilinogen, Urine NORM (Normal)
[2023-11-15 10:26] LABS: White Blood Cells, Urine TNTC /hpf (0-5)
[2023-11-15 10:27] LABS: Bacteria Mod /hpf; Squamous Epithelial Cells Few /hpf (Few)
[2023-11-15] MEDS ORDERED: Nitrofurantoin/Nitrofuran Mac 100 MG Cap PO ONE (10:35)
[2023-11-15] MEDS ORDERED: Macrobid 100 M100 MG PO (10:38)
[2023-11-15 11:17] VITALS: BP 165/81
== END 2023-11-15 11:17 | disposition home or self-care (01) ==
LOC: ER 07:46
PROVIDERS: Emergency Medicine
DX: S09.90XA Unspecified injury of head, initial encounter (principal); N39.0 Urinary tract infection, site not specified; W06.XXXA Fall from bed, initial encounter; Z88.2 Allergy status to sulfonamides; Z88.8 Allergy status to other drugs, medicaments and biological substances; Z88.1 Allergy status to other antibiotic agents; I10 Essential (primary) hypertension; E11.9 Type 2 diabetes mellitus without complications; I48.91 Unspecified atrial fibrillation; M10.9 Gout, unspecified; Z79.899 Other long term (current) drug therapy; Z79.4 Long term (current) use of insulin
CPT/HCPCS: 70450; 81001; 87077; 87086; 87186; 99284-25; A9270

== ENCOUNTER 2023-12-27 18:11 | Emergency (ER) | payer MEDICARE, OTHER ==
[~2023-12-27] VITALS: Ht 165.1 cm; Wt 118.4 kg
[~2023-12-27 18:11] MED LIST changes: +NYSTRIT TOP
[2023-12-27 18:45] LABS: BASOPHILS ABSOLUTE AUTO 0.04 K/mm3 (0.00-0.23); BASOPHILS PERCENT AUTO 1 % (0-2); EOSINOPHILS ABSOLUTE AUTO 0.14 K/mm3 (0.00-0.68); EOSINOPHILS PERCENT AUTO 2 % (0-6); Hematocrit 45.3 % (33.0-51.0); Hemoglobin 14.7 g/dL (11.5-16.0); IMMATURE GRAN ABSOLUTE AUTO 0.03 K/mm3 (0.00-0.10); IMMATURE GRAN PERCENT AUTO 0 % (0-1); LYMPHOCYTES ABSOLUTE AUTO 2.69 K/mm3 (0.84-5.20); LYMPHOCYTES PERCENT AUTO 32 % (21-46); MONOCYTES ABSOLUTE AUTO 0.41 K/mm3 (0.16-1.47); MONOCYTES PERCENT AUTO 5 % (4-13); Mean Corpuscular HGB 30.1 pg (26.0-34.0); Mean Corpuscular HGB Conc 32.5 g/dL (31.5-36.5); Mean Corpuscular Volume 93 fL (80-100); Mean Platelet Volume 9.1 fL (9.1-12.4); NEUTROPHILS ABSOLUTE AUTO 5.15 K/mm3 (1.96-9.15); NEUTROPHILS PERCENT AUTO 61 % (41-73); Platelet Count 184 K/mm3 (150-400); RDW Standard Deviation 47.8 fL (35.1-46.3); Red Blood Cell Count 4.89 M/mm3 (3.80-5.20); White Blood Cell Count 8.46 K/mm3 (4.00-11.30)
[2023-12-27 19:49] LABS: Source, Urine Clean Catch
[2023-12-27 19:57] LABS: Appearance, Urine Hazy (Clear); Bilirubin, Urine Neg (Neg); Blood, Urine 2+ (Neg); Glucose Qualitative, Urine 4+ (Neg); Ketones, Urine Neg (Neg); Leukocyte Esterase, Urine 1+ (Neg); Nitrite, Urine Neg (Neg); Protein, Urine 2+ (Neg); Specific Gravity, Urine 1.015 (1.003-1.022); Urobilinogen, Urine NORM (Normal)
[2023-12-27 20:04] LABS: Bacteria Few /hpf; Color, Urine Pale Yellow (P-Yellow); Red Blood Cells, Urine 0-2 /hpf (0-2); Squamous Epithelial Cells Few /hpf (Few); White Blood Cells, Urine 25-50 /hpf (0-5)
[2023-12-27 20:05] LABS: Yeast/Fungi Urine Many /hpf
[2023-12-27] MEDS ORDERED: Acetaminophen 325 MG TABLET PO ONE (20:25)
[2023-12-27] MEDS ORDERED: Nitrofurantoin/Nitrofuran Mac 100 MG Cap PO ONE (22:25)
[2023-12-27] MEDS ORDERED: Macrobid 100 M100 MG PO (22:25)
[2023-12-27 22:27] LABS: Albumin, Blood 3.4 g/dL (3.4-5.0); Bilirubin, Total 0.3 mg/dL (0.1-1.0); Calcium, Blood 9.7 mg/dL (8.5-10.1); Creatinine, Blood 1.16 mg/dL (0.40-1.00); Globulin, Blood 3.3 g/dL (2.2-4.0); Magnesium, Blood 2.2 mg/dL (1.6-2.4); Potassium, Blood 4.2 mmol/L (3.5-5.5); Total Protein, Blood 6.7 g/dL (6.4-8.2)
[2023-12-28] MEDS ORDERED: ACIDOPHILUS PO (00:59)
[2023-12-28] MEDS ORDERED: BISA5EC PO (01:02)
[2023-12-28] MEDS ORDERED: HYDROCODONE-AC1 EA10 PO (01:04)
[2023-12-28] MEDS ORDERED: MIRALAX17 GM PO (01:06)
[2023-12-28] MEDS ORDERED: LORA10ER PO (01:06)
[2023-12-28 06:30] VITALS: BP 158/85
== END 2023-12-28 08:32 | disposition home or self-care (01) ==
LOC: ER 18:11
PROVIDERS: Physician Assistant
DX: S06.5X0A Traumatic subdural hemorrhage without loss of consciousness, initial encounter (principal); N39.0 Urinary tract infection, site not specified; Z79.01 Long term (current) use of anticoagulants; W18.30XA Fall on same level, unspecified, initial encounter; Y92.099 Unspecified place in other non-institutional residence as the place of occurrence of the external cause; Z88.1 Allergy status to other antibiotic agents; Z88.2 Allergy status to sulfonamides; Z88.6 Allergy status to analgesic agent; Z88.8 Allergy status to other drugs, medicaments and biological substances; Z79.899 Other long term (current) drug therapy; Z79.4 Long term (current) use of insulin; E11.9 Type 2 diabetes mellitus without complications; I48.91 Unspecified atrial fibrillation; E78.5 Hyperlipidemia, unspecified; I25.2 Old myocardial infarction; I11.0 Hypertensive heart disease with heart failure; I50.22 Chronic systolic (congestive) heart failure
CPT/HCPCS: 70450; 80053; 81001; 83735; 85025; 87077; 87086; 87186; 93005; 93010; 99284-25; A9270; P9612

== ENCOUNTER 2024-01-17 07:39 | Emergency (ER) | payer MEDICARE, OTHER ==
[~2024-01-17] VITALS: Ht 167.6 cm; Wt 117.5 kg
[~2024-01-17 07:39] MED LIST changes: +ACIDOPHILUS PO; +BISA5EC PO; +HYDROCODONE-AC1 EA10 PO; +LORA10ER PO
[2024-01-17 08:10] VITALS: BP 122/64
[2024-01-17 09:16] LABS: BASOPHILS ABSOLUTE AUTO 0.05 K/mm3 (0.00-0.23); BASOPHILS PERCENT AUTO 0 % (0-2); EOSINOPHILS ABSOLUTE AUTO 0.09 K/mm3 (0.00-0.68); EOSINOPHILS PERCENT AUTO 1 % (0-6); Hematocrit 43.5 % (33.0-51.0); Hemoglobin 14.2 g/dL (11.5-16.0); IMMATURE GRAN ABSOLUTE AUTO 0.04 K/mm3 (0.00-0.10); IMMATURE GRAN PERCENT AUTO 0 % (0-1); LYMPHOCYTES ABSOLUTE AUTO 1.68 K/mm3 (0.84-5.20); LYMPHOCYTES PERCENT AUTO 13 % (21-46); MONOCYTES ABSOLUTE AUTO 0.66 K/mm3 (0.16-1.47); MONOCYTES PERCENT AUTO 5 % (4-13); Mean Corpuscular HGB Conc 32.6 g/dL (31.5-36.5); Mean Corpuscular Volume 92 fL (80-100); Mean Platelet Volume 9.1 fL (9.1-12.4); NEUTROPHILS ABSOLUTE AUTO 10.19 K/mm3 (1.96-9.15); NEUTROPHILS PERCENT AUTO 80 % (41-73); Platelet Count 186 K/mm3 (150-400); RDW Coefficient Variation 13.7 % (11.7-14.2); RDW Standard Deviation 46.3 fL (35.1-46.3); Red Blood Cell Count 4.74 M/mm3 (3.80-5.20); White Blood Cell Count 12.71 K/mm3 (4.00-11.30)
[2024-01-17 09:30] LABS: Bun/Creatinine Ratio 18.1 (12.0-20.0); Creatinine, Blood 1.16 mg/dL (0.40-1.00); Potassium, Blood 4.1 mmol/L (3.5-5.5)
[2024-01-17] MEDS ORDERED: Doxycycline Hyclate 100 MG TAB PO ONE (09:45)
[2024-01-17] MEDS ORDERED: DOXY100 PO (09:45)
== END 2024-01-17 10:24 | disposition home or self-care (01) ==
LOC: ER 07:39
PROVIDERS: Emergency Medicine
DX: L02.612 Cutaneous abscess of left foot (principal); L03.032 Cellulitis of left toe; Z88.8 Allergy status to other drugs, medicaments and biological substances; Z88.2 Allergy status to sulfonamides; Z88.1 Allergy status to other antibiotic agents; Z79.899 Other long term (current) drug therapy; Z79.4 Long term (current) use of insulin; E11.9 Type 2 diabetes mellitus without complications; I50.40 Unspecified combined systolic (congestive) and diastolic (congestive) heart failure; I11.0 Hypertensive heart disease with heart failure; I48.20 Chronic atrial fibrillation, unspecified; E78.5 Hyperlipidemia, unspecified; I25.2 Old myocardial infarction
CPT/HCPCS: 73660; 80048; 85025; A9270

== ENCOUNTER → 2024-02-25 | Outpatient (CLI) | payer MEDICARE, OTHER ==
[~2024-02-25] MED LIST changes: +DOXY100 PO
[2024-02-25 16:11] LABS: Source, Urine Voided
[2024-02-25 17:30] LABS: Appearance, Urine Hazy (Clear); Bilirubin, Urine Neg (Neg); Blood, Urine 2+ (Neg); Color, Urine Yellow (P-Yellow); Glucose Qualitative, Urine 4+ (Neg); Ketones, Urine Neg (Neg); Leukocyte Esterase, Urine 3+ (Neg); Nitrite, Urine Pos (Neg); Protein, Urine 2+ (Neg); Specific Gravity, Urine 1.015 (1.003-1.022); Urobilinogen, Urine NORM (Normal)
[2024-02-25 17:49] LABS: White Blood Cells, Urine TNTC /hpf (0-5)
[2024-02-25 17:50] LABS: Yeast/Fungi Urine Few /hpf
[2024-02-25 17:51] LABS: Bacteria Many /hpf; Squamous Epithelial Cells Few /hpf (Few)
== END ==
LOC: LAB SHORT 16:08 → LAB 16:08
PROVIDERS: Family Medicine
DX: N39.0 Urinary tract infection, site not specified (principal)
CPT/HCPCS: 81001; 87077; 87086; 87186

== ENCOUNTER → 2024-03-31 | Outpatient (CLI) | payer MEDICARE, OTHER ==
[2024-03-31 15:18] LABS: Source, Urine Voided
[2024-03-31 17:02] LABS: Appearance, Urine Cloudy (Clear); Bilirubin, Urine Neg (Neg); Blood, Urine 2+ (Neg); Glucose Qualitative, Urine 4+ (Neg); Ketones, Urine 1+ (Neg); Leukocyte Esterase, Urine 3+ (Neg); Nitrite, Urine Neg (Neg); Protein, Urine 2+ (Neg); Specific Gravity, Urine 1.015 (1.003-1.022); Urobilinogen, Urine NORM (Normal)
[2024-03-31 17:11] LABS: Color, Urine Pale Yellow (P-Yellow)
[2024-03-31 17:12] LABS: Bacteria Many /hpf; Red Blood Cells, Urine 0-2 /hpf (0-2); Squamous Epithelial Cells Rare /hpf (Few); White Blood Cells, Urine TNTC /hpf (0-5)
== END ==
LOC: LAB 15:16 → LAB SHORT 15:16
PROVIDERS: Family Medicine
DX: N39.0 Urinary tract infection, site not specified (principal)
CPT/HCPCS: 81001; 87077; 87086; 87186

== ENCOUNTER 2025-03-01 06:42 | Emergency (ER) | payer MEDICARE, OTHER ==
[~2025-03-01] VITALS: Ht 167.6 cm; Wt 114.8 kg
[2025-03-01] MEDS ORDERED: Morphine Sulfate 4 MG/1 ML Injection IV ONE ×2 (07:25→08:35)
[2025-03-01 10:30] VITALS: BP 135/64
== END 2025-03-01 12:29 | disposition home or self-care (01) ==
LOC: ER 06:42
DX: S81.011A Laceration without foreign body, right knee, initial encounter (principal); S00.83XA Contusion of other part of head, initial encounter; W18.30XA Fall on same level, unspecified, initial encounter; I11.0 Hypertensive heart disease with heart failure; I50.40 Unspecified combined systolic (congestive) and diastolic (congestive) heart failure; E11.9 Type 2 diabetes mellitus without complications; I48.20 Chronic atrial fibrillation, unspecified; Z88.2 Allergy status to sulfonamides; Z88.1 Allergy status to other antibiotic agents; Z88.8 Allergy status to other drugs, medicaments and biological substances; Z79.899 Other long term (current) drug therapy; Z79.4 Long term (current) use of insulin; I25.2 Old myocardial infarction
CPT/HCPCS: 12001; 73560-RT; 73562-RT; 96374-59; 96376-59; 99284-25; J2270